=== PATIENT | female | born 1970 | race Two or more races ===

== ENCOUNTER 2024-04-24 11:26 | Inpatient (IN) | payer OTHER, MEDICARE, MEDICAID ==
[~2024-04-24] VITALS: Ht 167.6 cm; Wt 188.0 kg
[2024-04-24 12:24] VITALS: BP_SYST 156; BP_SYST 167; BP_DIAS 109; BP_DIAS 91; PULSE 67; PULSE 84; RESP 22; TEMP 97.6; O2SAT 92; O2SAT 95
[2024-04-24 12:25] LABS: Chloride 103 mmol/L (98-107); Potassium 4.4 mmol/L (3.5-5.1); Sodium 140 mmol/L (136-145)
[2024-04-24 12:26] LABS: Calcium 9.4 mg/dL (8.7-10.4); Carbon Dioxide 38 mmol/L (20-30)
[2024-04-24] MEDS: ALBUTEROL SULF 2.5 MG/0.5ML(0.5%) NEB SOLN NEB ONE (12:30)
[2024-04-24 12:31] LABS: Anion Gap -1 (5-15); Blood Urea Nitrogen 6 mg/dL (9-23); Glucose 140 mg/dL (74-106)
[2024-04-24] MEDS: FUROSEMIDE 40 MG/4 ML VIAL IV ONE (13:30)
[2024-04-24 14:26] LABS: Base Excess 3.8 mmol/L (-2.0-2.0)
[2024-04-24 14:40] VITALS: BP 156/91; PULSE 84; O2SAT 95
[2024-04-24 15:35] LABS: Basophils # (auto) 0 10 ^3/uL (0-0.2); Basophils % (auto) 0.4 % (0.0-2.0); Eosinophils # (auto) 0.1 10 ^3/uL (0-0.8); Hematocrit 42.7 % (36.0-46.0); Hemoglobin 13.5 g/dL (12.2-16.2); Lymphocytes # (auto) 1.1 10 ^3/uL (0.4-5.4); Lymphocytes % (auto) 17.4 % (10.0-50.0); Mean Corpuscular Hemoglobin 29.8 pg (28.0-32.0); Mean Corpuscular Hgb Conc. 31.7 g/dL (32.0-36.0); Mean Corpuscular Volume 94.1 fL (80.0-100.0); Monocytes # (auto) 0.6 10 ^3/uL (0-1.3); Monocytes % (auto) 9.8 % (0.0-12.0); Neutrophils # (auto) 4.7 10 ^3/uL (1.6-8.6); Neutrophils % (auto) 71.4 % (37.0-80.0); Nucleated Red Blood Cells % 0.5 %; Platelet Count (auto) 185 10^3/uL (140-450); Red Blood Cells 4.54 10^6/uL (4.0-5.20); Red Cell Distribution Width 16.2 % (11.8-14.3); White Blood Cell 6.6 10^3/uL (4.4-10.8)
[2024-04-24] MEDS ORDERED: AZITHROMYCIN 250 MG TAB PO ONE (16:00)
[2024-04-24 16:11] LABS: Base Excess 7.4 mmol/L (-2.0-2.0)
[2024-04-24] MEDS: methylPREDNISolone SOD SUCC 125 MG/2 ML VL IV ONE (16:17)
[2024-04-24] MEDS ORDERED: ACETAMINOPHEN 650 MG RECT SUPP PR PRN (16:30)
[2024-04-24] MEDS ORDERED: DOCUSATE SOD 100 MG CAP PO PRN (16:30)
[2024-04-24] MEDS: ETOMIDATE (2MG/ML) 20ML VIAL IV ONE ×2 (16:34→16:37)
[2024-04-24] MEDS: ROCURONIUM 10MG/ML 10ML VIAL IV ONE ×2 (16:34→16:37)
[2024-04-24] MEDS: PROPOFOL 100 ML IV SCH (16:36)
[2024-04-24] MEDS: PROPOFOL 100 ML IV ONE (16:37)
[2024-04-24] MEDS: PROPOFOL 10 MG/ML 20 ML IV ONE (16:37)
[2024-04-24] MEDS: AZITHROMYCIN 500MG/ 250ML 250 ML IV ONE (17:10)
[2024-04-24] MEDS: MIDAZOLAM DRIP 50 mg/50mL 50 ML IV SCH (17:45)
[2024-04-24] MEDS: MIDAZOLAM DRIP 50 mg/50mL 50 ML IV ONE (17:46)
[2024-04-24 18:20] VITALS: BP 138/89; PULSE 77; RESP 20; O2SAT 96
[2024-04-24 18:39] LABS: Base Excess 11.2 mmol/L (-2.0-2.0)
[2024-04-24 19:30] VITALS: RESP 20; O2SAT 100
[2024-04-24 19:42] LABS: COVID19 ANTIGEN SOFIA FIA NEGATIVE (NEGATIVE); Rapid Influenza A Negative (Negative); Rapid Influenza B Negative (Negative)
[2024-04-24 20:30] VITALS: BP 138/89; PULSE 74; RESP 20; O2SAT 96
[2024-04-24] MEDS ORDERED: MORPHINE SULFATE INJ 2 MG/ml SYRG IV PRN (20:45)
[2024-04-24] MEDS ORDERED: NITROGLYCERIN 0.4 MG SL TAB SL PRN (20:45)
[2024-04-24] MEDS: methylPREDNISolone SOD SUCC 40 MG/ML VL IV SCH (22:21)
[2024-04-24] MEDS: FAMOTIDINE (10MG/ML) 2ML VL IV SCH (22:21)
[2024-04-24] MEDS: METOPROLOL TARTRATE 25 MG TAB PO SCH (22:22)
[2024-04-24] MEDS: HEPARIN SODIUM (PORCINE) 5000 UNITS/ML 1ML VIAL SC SCH (22:23)
[2024-04-24] MEDS: SODIUM CHLOR 0.9% PF (SALINE LOCK) 10ML VIAL/SYR IV SCH (22:24)
[2024-04-24 22:50] VITALS: BP 133/92; PULSE 74; RESP 20; O2SAT 94
[2024-04-25] VITALS (39 sets, daily range): BP systolic 86–163; BP diastolic 41–100; PULSE 71–105; RESP 17–20; TEMP 98.3–98.6; O2SAT 88–95
[2024-04-25] MEDS: hydrALAZINE HCL 20 MG/ML VL IV PRN (00:16)
[2024-04-25] MEDS: ALBUTEROL SULF 2.5 MG/0.5ML(0.5%) NEB SOLN NEB PRN (00:18)
[2024-04-25 02:16] LABS: Urine Bacteria None Seen /hpf (None Seen)
[2024-04-25 02:34] LABS: Urine Blood Negative /uL (Negative); Urine Clarity Clear (Clear); Urine Color Light-Yellow (Yellow); Urine Protein, UAD Negative (Negative); Urine Specific Gravity 1.011 (1.001-1.035); Urine Urobilinogen Normal (Negative); Urine WBC 1 /hpf (0 - 5)
[2024-04-25 04:40] LABS: Base Excess 8.3 mmol/L (-2.0-2.0)
[2024-04-25 06:13] LABS: Basophils # (auto) 0 10 ^3/uL (0-0.2); Basophils % (auto) 0.2 % (0.0-2.0); Eosinophils # (auto) 0 10 ^3/uL (0-0.8); Eosinophils % (auto) 0.1 % (0.0-7.0); Hematocrit 42.2 % (36.0-46.0); Hemoglobin 13.8 g/dL (12.2-16.2); Lymphocytes # (auto) 0.6 10 ^3/uL (0.4-5.4); Lymphocytes % (auto) 7.9 % (10.0-50.0); Mean Corpuscular Hemoglobin 30.2 pg (28.0-32.0); Mean Corpuscular Hgb Conc. 32.7 g/dL (32.0-36.0); Mean Corpuscular Volume 92.5 fL (80.0-100.0); Monocytes # (auto) 0.3 10 ^3/uL (0-1.3); Monocytes % (auto) 4.2 % (0.0-12.0); Neutrophils # (auto) 6.2 10 ^3/uL (1.6-8.6); Neutrophils % (auto) 87.6 % (37.0-80.0); Nucleated Red Blood Cells % 0.1 %; Platelet Count (auto) 183 10^3/uL (140-450); Red Blood Cells 4.57 10^6/uL (4.0-5.20); Red Cell Distribution Width 16.3 % (11.8-14.3); White Blood Cell 7.1 10^3/uL (4.4-10.8)
[2024-04-25 06:27] LABS: Alanine Aminotransferase 10 U/L (7-40); Alkaline Phosphatase 81 U/L (46-116); Anion Gap 8 (5-15); Blood Urea Nitrogen 7 mg/dL (9-23); Calcium 9.3 mg/dL (8.7-10.4); Carbon Dioxide 32 mmol/L (20-30); Chloride 101 mmol/L (98-107); Glucose 173 mg/dL (74-106); Potassium 3.5 mmol/L (3.5-5.1); Sodium 141 mmol/L (136-145)
[2024-04-25 06:28] LABS: Albumin 3.8 g/dL (3.2-4.8)
[2024-04-25 06:29] LABS: Aspartate Aminotransferase < 8 U/L (13-40); Bilirubin, Total 0.7 mg/dL (0.2-1.0); Total Protein 6.4 g/dL (5.7-8.2)
[2024-04-25] MEDS: PROPOFOL 100 ML IV ONE (07:50)
[2024-04-25] MEDS: FUROSEMIDE 40 MG/4 ML VIAL IV SCH ×2 (10:21→21:24)
[2024-04-25] MEDS: AZITHROMYCIN 500MG/ 250ML 250 ML IV SCH (10:24)
[2024-04-25] MEDS ORDERED: DOCU-94 PO (10:54)
[2024-04-25] MEDS ORDERED: RIS1T PO (10:54)
[2024-04-25] MEDS ORDERED: TRIA0.1O TOP (10:54)
[2024-04-25] MEDS ORDERED: OMEP20TA PO (10:54)
[2024-04-25] MEDS ORDERED: CLON-853 PO (10:54)
[2024-04-25] MEDS ORDERED: KEP500T PO (10:54)
[2024-04-25] MEDS ORDERED: MOMLQ PO (10:54)
[2024-04-25] MEDS ORDERED: DIVA500T12 PO (10:54)
[2024-04-25] MEDS ORDERED: METF-372 PO (10:54)
[2024-04-25] MEDS ORDERED: LEVO200C3 PO (10:54)
[2024-04-25] MEDS ORDERED: HYOS0.1250 PO (10:54)
[2024-04-25] MEDS ORDERED: BUDE0.5S IN (10:54)
[2024-04-25] MEDS ORDERED: SERT-206 PO (10:54)
[2024-04-25] MEDS ORDERED: MODA100T52 PO (10:54)
[2024-04-25] MEDS ORDERED: ATOR20TA PO (10:54)
[2024-04-25] MEDS ORDERED: DEXTROSE (50%) 50ML SYRG IV PRN (13:45)
[2024-04-25 14:12] LABS: Base Excess 7.2 mmol/L (-2.0-2.0)
[2024-04-25] MEDS: POTASSIUM EFFERVESENT TAB 25 MEQ PO ONE (14:19)
[2024-04-25] MEDS: ACCU-CHEK COMFORT CURVE STRIP VI SCH (17:37)
[2024-04-25] MEDS: InsuLIN REG 1unit/0.01ml Soln (100units/ml) SC SCH (17:38)
[2024-04-25] MEDS: ENOXAPARIN SOD 150 MG/1 ML SYRINGE SC SCH (21:16)
[2024-04-25] MEDS ORDERED: ENOXAPARIN SOD 100 MG/1 ML SYRINGE SC SCH (22:00)
[2024-04-25] MEDS ORDERED: ALBUMIN 5% 250 ML IV SCH (23:30)
[2024-04-26] VITALS (108 sets, daily range): BP systolic 87–134; BP diastolic 40–80; PULSE 68–165; RESP 16–29; TEMP 96.4–98.6; O2SAT 89–97
[2024-04-26] MEDS: AMIODARONE HCL (50 MG/ ML) 3 ML VIAL IV ONE (03:04)
[2024-04-26] MEDS: AMIODARONE 450mg/250ml AE 250 ML IV ONE (03:05)
[2024-04-26] MEDS ORDERED: ALBUMIN 5% 250 ML IV ONE (03:15)
[2024-04-26] MEDS: ALBUMIN 5% 250 ML IV ONE (03:34)
[2024-04-26] MEDS: AMIODARONE 450mg/250ml AE 250 ML IV SCH ×2 (03:40→11:44)
[2024-04-26] MEDS: AMIODARONE BOLUS KIT 100 ML IV ONE (03:42)
[2024-04-26 04:24] LABS: Basophils # (auto) 0 10 ^3/uL (0-0.2); Basophils % (auto) 0.1 % (0.0-2.0); Eosinophils # (auto) 0 10 ^3/uL (0-0.8); Eosinophils % (auto) 0.1 % (0.0-7.0); Hemoglobin 13.1 g/dL (12.2-16.2); Lymphocytes # (auto) 0.5 10 ^3/uL (0.4-5.4); Lymphocytes % (auto) 5.4 % (10.0-50.0); Mean Corpuscular Hemoglobin 29.6 pg (28.0-32.0); Mean Corpuscular Volume 92.6 fL (80.0-100.0); Monocytes # (auto) 0.7 10 ^3/uL (0-1.3); Monocytes % (auto) 7.6 % (0.0-12.0); Neutrophils # (auto) 8.1 10 ^3/uL (1.6-8.6); Neutrophils % (auto) 86.8 % (37.0-80.0); Nucleated Red Blood Cells % 0.1 %; Platelet Count (auto) 194 10^3/uL (140-450); Red Blood Cells 4.43 10^6/uL (4.0-5.20); Red Cell Distribution Width 16.5 % (11.8-14.3); White Blood Cell 9.4 10^3/uL (4.4-10.8)
[2024-04-26 04:30] LABS: Anion Gap 11 (5-15); Carbon Dioxide 28 mmol/L (20-30); Chloride 100 mmol/L (98-107); Potassium 3.5 mmol/L (3.5-5.1); Sodium 139 mmol/L (136-145)
[2024-04-26 04:31] LABS: Calcium 8.9 mg/dL (8.7-10.4)
[2024-04-26 04:35] LABS: Glucose 273 mg/dL (74-106)
[2024-04-26 04:36] LABS: BUN/Creatinine Ratio 10.8 (10.0-20.0); Blood Urea Nitrogen 12 mg/dL (9-23); Magnesium 1.8 mg/dL (1.6-2.6)
[2024-04-26] MEDS: LEVOTHYROXINE SODIUM 100 MCG TAB PO SCH (06:19)
[2024-04-26 07:50] LABS: Base Excess 0.5 mmol/L (-2.0-2.0)
[2024-04-26] MEDS: BUDESONIDE (INHALATION) 0.5 MG/2 ML NEB NEB SCH (08:14)
[2024-04-26] MEDS: IPRATROPIUM BROM 0.5 MG/2.5ML INH SOL NEB SCH (08:14)
[2024-04-26] MEDS: LEVALBUTEROL HCL 1.25 MG/3 ML NEB NEB SCH (08:15)
[2024-04-26] MEDS ORDERED: PATIENTS OWN MEDICATION (Levothyroxine Sodium 200 MCG) PO SCH (10:00)
[2024-04-26] MEDS: PANTOPRAZOLE 40 MG/10 ML VIAL INJ IV SCH (10:15)
[2024-04-26] MEDS: cefTRIAXone 1GM/50ML D5W 50 ML IV SCH (10:15)
[2024-04-26] MEDS: POTASSIUM CHL 20MEQ/100ML 100 ML IV SCH (10:17)
[2024-04-26] MEDS: DOXYCYCLINE 100MG/250ML 250 ML IV SCH (10:17)
[2024-04-26 11:46] LABS: INR 1.1 (0.9-1.15); Partial Thromboplastin Time 27.1 SEC (24.5-34.5); Prothrombin Time 11.6 sec (9.3-11.8)
[2024-04-26 12:03] LABS: Erythrocyte Sedimentation Rate 5 mm/hr (0-20)
[2024-04-26] MEDS: Glucerna 1.2 Cal 1Liter BOTTLE GT SCH (13:36)
[2024-04-27] VITALS (106 sets, daily range): BP systolic 89–190; BP diastolic 49–106; PULSE 65–107; RESP 11–35; TEMP 97.9–98.8; O2SAT 81–100
[2024-04-27 04:26] LABS: Chloride 99 mmol/L (98-107); Potassium 3.6 mmol/L (3.5-5.1); Sodium 140 mmol/L (136-145)
[2024-04-27 04:27] LABS: Anion Gap 5 (5-15); Carbon Dioxide 36 mmol/L (20-30)
[2024-04-27 04:28] LABS: Calcium 8.8 mg/dL (8.7-10.4)
[2024-04-27 04:32] LABS: BUN/Creatinine Ratio 17.9 (10.0-20.0); Blood Urea Nitrogen 14 mg/dL (9-23); Glucose 156 mg/dL (74-106)
[2024-04-27 04:33] LABS: Magnesium 1.9 mg/dL (1.6-2.6)
[2024-04-27 07:32] LABS: Base Excess 7.9 mmol/L (-2.0-2.0)
[2024-04-27] MEDS: AMIODARONE HCL 200 MG TAB PO SCH (10:47)
[2024-04-27] MEDS: FUROSEMIDE INJECTION 100 MG in D5W 5% 100 ML IV SCH (11:01)
[2024-04-27] MEDS: LACTULOSE 20Gm/30ML SOLN GT SCH (11:01)
[2024-04-27] MEDS: POTASSIUM EFFERVESENT TAB 25 MEQ PO SCH (11:03)
[2024-04-27 20:34] LABS: Potassium 3.3 mmol/L (3.5-5.1)
[2024-04-27 20:40] LABS: Magnesium 1.6 mg/dL (1.6-2.6)
[2024-04-28] VITALS (109 sets, daily range): BP systolic 80–128; BP diastolic 34–76; PULSE 67–155; RESP 16–24; TEMP 97.9–99; O2SAT 85–96
[2024-04-28 04:17] LABS: Chloride 96 mmol/L (98-107); Potassium 3.4 mmol/L (3.5-5.1); Sodium 140 mmol/L (136-145)
[2024-04-28 04:18] LABS: Anion Gap 5 (5-15); Carbon Dioxide 39 mmol/L (20-30)
[2024-04-28 04:23] LABS: BUN/Creatinine Ratio 16.9 (10.0-20.0); Blood Urea Nitrogen 13 mg/dL (9-23); Glucose 153 mg/dL (74-106)
[2024-04-28 04:24] LABS: Magnesium 1.7 mg/dL (1.6-2.6)
[2024-04-28 08:14] LABS: Base Excess 11.8 mmol/L (-2.0-2.0)
[2024-04-28 08:17] LABS: Basophils # (auto) 0.1 10 ^3/uL (0-0.2); Basophils % (auto) 0.5 % (0.0-2.0); Eosinophils # (auto) 0.1 10 ^3/uL (0-0.8); Hematocrit 43.5 % (36.0-46.0); Hemoglobin 13.7 g/dL (12.2-16.2); Lymphocytes # (auto) 1.3 10 ^3/uL (0.4-5.4); Lymphocytes % (auto) 12.9 % (10.0-50.0); Mean Corpuscular Hemoglobin 29.3 pg (28.0-32.0); Mean Corpuscular Hgb Conc. 31.5 g/dL (32.0-36.0); Mean Corpuscular Volume 92.8 fL (80.0-100.0); Neutrophils # (auto) 7.9 10 ^3/uL (1.6-8.6); Neutrophils % (auto) 75.6 % (37.0-80.0); Platelet Count (auto) 190 10^3/uL (140-450); Red Blood Cells 4.68 10^6/uL (4.0-5.20); Red Cell Distribution Width 16.6 % (11.8-14.3); White Blood Cell 10.4 10^3/uL (4.4-10.8)
[2024-04-28] MEDS: POTASSIUM EFFERVESENT TAB 25 MEQ PO SCH (09:04)
[2024-04-28] MEDS: MAGNESIUM SULFATE 1GM/100ML 100 ML IV SCH (09:05)
[2024-04-28] MEDS: FUROSEMIDE INJECTION 100 MG in D5W 5% 100 ML IV SCH (09:08)
[2024-04-28] MEDS: ACETYLCYSTEINE 10 %(100MG/ML) SOL 4ML NEB SCH (12:40)
[2024-04-28] MEDS ORDERED: VANCOMYCIN PER PHARMACY 0 MG IV SCH (15:30)
[2024-04-28] MEDS: fentaNYL Drip 2500mCg/250mlNS 250 ML IV SCH (15:51)
[2024-04-28] MEDS: VANCOMYCIN 1GM/200ML 200 ML IV SCH (17:15)
[2024-04-28] MEDS: AMIODARONE BOLUS KIT 100 ML IV ONE (19:27)
[2024-04-28] MEDS: AMIODARONE 450mg/250ml AE 250 ML IV SCH (19:34)
[2024-04-28] MEDS ORDERED: VANCOMYCIN 1,500 MG in D5W 5% 250 ML IV SCH (22:00)
[2024-04-29] VITALS (112 sets, daily range): BP systolic 85–120; BP diastolic 37–76; PULSE 81–121; RESP 15–33; TEMP 93.4–100.2; O2SAT 91–97
[2024-04-29] MEDS: VANCOMYCIN 1.5GM/300ML 300 ML IV SCH (00:04)
[2024-04-29] MEDS: AMIODARONE 450mg/250ml AE 250 ML IV SCH (01:15)
[2024-04-29 03:41] LABS: Basophils # (auto) 0 10 ^3/uL (0-0.2); Basophils % (auto) 0.1 % (0.0-2.0); Eosinophils # (auto) 0.1 10 ^3/uL (0-0.8); Eosinophils % (auto) 0.9 % (0.0-7.0); Hematocrit 42.1 % (36.0-46.0); Hemoglobin 13.5 g/dL (12.2-16.2); Lymphocytes # (auto) 1.7 10 ^3/uL (0.4-5.4); Lymphocytes % (auto) 16.7 % (10.0-50.0); Mean Corpuscular Hemoglobin 29.6 pg (28.0-32.0); Mean Corpuscular Hgb Conc. 32.1 g/dL (32.0-36.0); Mean Corpuscular Volume 92.1 fL (80.0-100.0); Monocytes # (auto) 0.9 10 ^3/uL (0-1.3); Monocytes % (auto) 8.5 % (0.0-12.0); Neutrophils # (auto) 7.5 10 ^3/uL (1.6-8.6); Neutrophils % (auto) 73.8 % (37.0-80.0); Nucleated Red Blood Cells % 0.2 %; Platelet Count (auto) 177 10^3/uL (140-450); Red Blood Cells 4.57 10^6/uL (4.0-5.20); Red Cell Distribution Width 16.4 % (11.8-14.3); White Blood Cell 10.1 10^3/uL (4.4-10.8)
[2024-04-29 03:45] LABS: Anion Gap 5 (5-15); Carbon Dioxide 38 mmol/L (20-30); Chloride 93 mmol/L (98-107); Potassium 3.5 mmol/L (3.5-5.1); Sodium 136 mmol/L (136-145)
[2024-04-29 03:51] LABS: BUN/Creatinine Ratio 19.5 (10.0-20.0); Blood Urea Nitrogen 16 mg/dL (9-23); Glucose 139 mg/dL (74-106)
[2024-04-30] VITALS (113 sets, daily range): BP systolic 86–129; BP diastolic 45–82; PULSE 76–125; RESP 15–23; TEMP 86.9–100.2; O2SAT 85–99
[2024-04-30 04:16] LABS: Basophils # (auto) 0 10 ^3/uL (0-0.2); Basophils % (auto) 0.3 % (0.0-2.0); Eosinophils # (auto) 0.1 10 ^3/uL (0-0.8); Eosinophils % (auto) 1.3 % (0.0-7.0); Hematocrit 41.9 % (36.0-46.0); Hemoglobin 13.2 g/dL (12.2-16.2); Lymphocytes # (auto) 1.2 10 ^3/uL (0.4-5.4); Mean Corpuscular Hemoglobin 29.4 pg (28.0-32.0); Mean Corpuscular Hgb Conc. 31.5 g/dL (32.0-36.0); Mean Corpuscular Volume 93.5 fL (80.0-100.0); Monocytes % (auto) 8.2 % (0.0-12.0); Neutrophils # (auto) 9.4 10 ^3/uL (1.6-8.6); Neutrophils % (auto) 80.2 % (37.0-80.0); Platelet Count (auto) 163 10^3/uL (140-450); Red Blood Cells 4.48 10^6/uL (4.0-5.20); Red Cell Distribution Width 16.7 % (11.8-14.3); White Blood Cell 11.7 10^3/uL (4.4-10.8)
[2024-04-30 04:35] LABS: Alanine Aminotransferase 48 U/L (7-40); Albumin 3.7 g/dL (3.2-4.8); Alkaline Phosphatase 77 U/L (46-116); Anion Gap 4 (5-15); Aspartate Aminotransferase 141 U/L (13-40); Blood Urea Nitrogen 15 mg/dL (9-23); Calcium 9.1 mg/dL (8.7-10.4); Carbon Dioxide 38 mmol/L (20-30); Chloride 94 mmol/L (98-107); Glucose 147 mg/dL (74-106); Magnesium 1.9 mg/dL (1.6-2.6); Potassium 3.8 mmol/L (3.5-5.1); Sodium 136 mmol/L (136-145)
[2024-04-30 04:36] LABS: Bilirubin, Total 0.8 mg/dL (0.2-1.0); Total Protein 6.1 g/dL (5.7-8.2)
[2024-04-30] MEDS: VANCOMYCIN 1.5GM/300ML 300 ML IV SCH (09:33)
[2024-04-30] MEDS: AMIODARONE HCL 200 MG TAB PO ONE (13:36)
[2024-04-30] MEDS: AMIODARONE HCL 200 MG TAB PO SCH (21:50)
[2024-05-01] VITALS (109 sets, daily range): BP systolic 87–138; BP diastolic 34–81; PULSE 81–119; RESP 13–22; TEMP 99–100.4; O2SAT 89–100
[2024-05-01 04:24] LABS: Basophils # (auto) 0 10 ^3/uL (0-0.2); Basophils % (auto) 0.2 % (0.0-2.0); Eosinophils # (auto) 0.1 10 ^3/uL (0-0.8); Hematocrit 40.5 % (36.0-46.0); Lymphocytes # (auto) 0.6 10 ^3/uL (0.4-5.4); Lymphocytes % (auto) 5.3 % (10.0-50.0); Mean Corpuscular Hemoglobin 29.8 pg (28.0-32.0); Mean Corpuscular Hgb Conc. 32.1 g/dL (32.0-36.0); Mean Corpuscular Volume 92.9 fL (80.0-100.0); Monocytes % (auto) 8.6 % (0.0-12.0); Neutrophils % (auto) 84.9 % (37.0-80.0); Platelet Count (auto) 161 10^3/uL (140-450); Red Blood Cells 4.36 10^6/uL (4.0-5.20); Red Cell Distribution Width 16.5 % (11.8-14.3); White Blood Cell 11.8 10^3/uL (4.4-10.8)
[2024-05-01 04:43] LABS: Alanine Aminotransferase 47 U/L (7-40); Alkaline Phosphatase 80 U/L (46-116); Aspartate Aminotransferase 107 U/L (13-40); BUN/Creatinine Ratio 20.6 (10.0-20.0); Blood Urea Nitrogen 14 mg/dL (9-23); Calcium 9.1 mg/dL (8.7-10.4); Chloride 95 mmol/L (98-107); Glucose 127 mg/dL (74-106); Magnesium 1.9 mg/dL (1.6-2.6); Potassium 3.8 mmol/L (3.5-5.1); Sodium 137 mmol/L (136-145)
[2024-05-01 04:44] LABS: Albumin 3.7 g/dL (3.2-4.8); Bilirubin, Total 0.7 mg/dL (0.2-1.0); Total Protein 6.2 g/dL (5.7-8.2)
[2024-05-01 05:22] LABS: Anion Gap 7 (5-15); Carbon Dioxide 35 mmol/L (20-30)
[2024-05-01 07:40] LABS: Base Excess 9.7 mmol/L (-2.0-2.0)
[2024-05-01] MEDS: FUROSEMIDE INJECTION 100 MG in D5W 5% 100 ML IV SCH (09:30)
[2024-05-01] MEDS: NOREPINEPHRINE 8 MG/250ML KIT 250 ML IV SCH (09:30)
[2024-05-01] MEDS: METOPROLOL TARTRATE 25 MG TAB PO SCH (10:00)
[2024-05-01] MEDS: ACETAMINOPHEN 650 mg PER 20.3 mL UD GT PRN (22:30)
[2024-05-02] VITALS (109 sets, daily range): BP systolic 87–138; BP diastolic 41–89; PULSE 80–123; RESP 13–25; TEMP 98.4–101; O2SAT 85–100
[2024-05-02 03:28] LABS: Basophils # (auto) 0 10 ^3/uL (0-0.2); Basophils % (auto) 0.3 % (0.0-2.0); Eosinophils # (auto) 0.2 10 ^3/uL (0-0.8); Eosinophils % (auto) 1.9 % (0.0-7.0); Hematocrit 38.5 % (36.0-46.0); Hemoglobin 12.4 g/dL (12.2-16.2); Lymphocytes % (auto) 10.4 % (10.0-50.0); Mean Corpuscular Hemoglobin 29.8 pg (28.0-32.0); Mean Corpuscular Hgb Conc. 32.2 g/dL (32.0-36.0); Mean Corpuscular Volume 92.5 fL (80.0-100.0); Monocytes # (auto) 1.1 10 ^3/uL (0-1.3); Monocytes % (auto) 11.6 % (0.0-12.0); Neutrophils % (auto) 75.8 % (37.0-80.0); Platelet Count (auto) 154 10^3/uL (140-450); Red Blood Cells 4.16 10^6/uL (4.0-5.20); Red Cell Distribution Width 16.3 % (11.8-14.3); White Blood Cell 9.2 10^3/uL (4.4-10.8)
[2024-05-02 03:43] LABS: Anion Gap 4 (5-15); Carbon Dioxide 38 mmol/L (20-30); Chloride 97 mmol/L (98-107); Potassium 3.4 mmol/L (3.5-5.1); Sodium 139 mmol/L (136-145)
[2024-05-02 03:44] LABS: Calcium 9.4 mg/dL (8.7-10.4)
[2024-05-02 03:48] LABS: Glucose 111 mg/dL (74-106)
[2024-05-02 03:49] LABS: BUN/Creatinine Ratio 22.2 (10.0-20.0); Blood Urea Nitrogen 14 mg/dL (9-23)
[2024-05-02 06:41] LABS: Base Excess 8.6 mmol/L (-2.0-3.0)
[2024-05-02] MEDS: BUMETANIDE 2.5mg/10ml (0.25 mg/ml) INJ IV SCH (20:03)
[2024-05-02] MEDS: GLYCOPYRROLATE 0.2 MG/ML 1ML VIAL IV ONE (20:03)
[2024-05-03] VITALS (102 sets, daily range): BP systolic 96–151; BP diastolic 48–78; PULSE 85–127; RESP 15–30; TEMP 98.5–99.8; O2SAT 72–99
[2024-05-03 03:38] LABS: Basophils # (auto) 0 10 ^3/uL (0-0.2); Basophils % (auto) 0.3 % (0.0-2.0); Eosinophils # (auto) 0.2 10 ^3/uL (0-0.8); Eosinophils % (auto) 1.7 % (0.0-7.0); Hematocrit 39.5 % (36.0-46.0); Hemoglobin 12.8 g/dL (12.2-16.2); Lymphocytes # (auto) 0.9 10 ^3/uL (0.4-5.4); Lymphocytes % (auto) 9.3 % (10.0-50.0); Mean Corpuscular Hemoglobin 30.2 pg (28.0-32.0); Mean Corpuscular Hgb Conc. 32.4 g/dL (32.0-36.0); Mean Corpuscular Volume 93.2 fL (80.0-100.0); Monocytes % (auto) 10.4 % (0.0-12.0); Neutrophils # (auto) 7.4 10 ^3/uL (1.6-8.6); Neutrophils % (auto) 78.3 % (37.0-80.0); Platelet Count (auto) 178 10^3/uL (140-450); Red Blood Cells 4.24 10^6/uL (4.0-5.20); Red Cell Distribution Width 16.1 % (11.8-14.3); White Blood Cell 9.5 10^3/uL (4.4-10.8)
[2024-05-03 03:53] LABS: Chloride 98 mmol/L (98-107); Potassium 3.7 mmol/L (3.5-5.1); Sodium 139 mmol/L (136-145)
[2024-05-03 03:54] LABS: Anion Gap 3 (5-15); Calcium 9.7 mg/dL (8.7-10.4); Carbon Dioxide 38 mmol/L (20-30)
[2024-05-03 03:59] LABS: BUN/Creatinine Ratio 21.5 (10.0-20.0); Blood Urea Nitrogen 14 mg/dL (9-23); Glucose 113 mg/dL (74-106)
[2024-05-03 08:02] LABS: Base Excess 5.6 mmol/L (-2.0-3.0)
[2024-05-03] MEDS: METOPROLOL TARTRATE 25 MG TAB PO SCH (09:19)
[2024-05-03] MEDS: ACETYLCYSTEINE 10 %(100MG/ML) SOL 4ML NEB SCH (10:54)
[2024-05-04] VITALS (108 sets, daily range): BP systolic 84–153; BP diastolic 44–76; PULSE 67–103; RESP 13–22; TEMP 98.1–99.1; O2SAT 86–100
[2024-05-04 03:58] LABS: Basophils # (auto) 0 10 ^3/uL (0-0.2); Basophils % (auto) 0.5 % (0.0-2.0); Eosinophils # (auto) 0.1 10 ^3/uL (0-0.8); Hemoglobin 11.8 g/dL (12.2-16.2); Lymphocytes % (auto) 13.1 % (10.0-50.0); Mean Corpuscular Hemoglobin 30.6 pg (28.0-32.0); Mean Corpuscular Hgb Conc. 32.9 g/dL (32.0-36.0); Mean Corpuscular Volume 92.9 fL (80.0-100.0); Monocytes # (auto) 0.8 10 ^3/uL (0-1.3); Monocytes % (auto) 10.5 % (0.0-12.0); Neutrophils # (auto) 5.4 10 ^3/uL (1.6-8.6); Neutrophils % (auto) 73.9 % (37.0-80.0); Platelet Count (auto) 171 10^3/uL (140-450); Red Blood Cells 3.87 10^6/uL (4.0-5.20); Red Cell Distribution Width 15.8 % (11.8-14.3); White Blood Cell 7.4 10^3/uL (4.4-10.8)
[2024-05-04 04:05] LABS: Anion Gap 6 (5-15); Carbon Dioxide 35 mmol/L (20-30); Chloride 100 mmol/L (98-107); Potassium 3.6 mmol/L (3.5-5.1); Sodium 141 mmol/L (136-145)
[2024-05-04 04:06] LABS: Calcium 9.4 mg/dL (8.7-10.4)
[2024-05-04 04:11] LABS: Glucose 113 mg/dL (74-106)
[2024-05-04 04:12] LABS: BUN/Creatinine Ratio 25.8 (10.0-20.0); Blood Urea Nitrogen 16 mg/dL (9-23)
[2024-05-04 08:15] LABS: Base Excess 6.1 mmol/L (-2.0-3.0)
[2024-05-04] MEDS: methylPREDNISolone SOD SUCC 40 MG/ML VL IV SCH (11:23)
[2024-05-04] MEDS: QUEtiapine FUMARATE 25 MG TAB PO SCH (21:07)
[2024-05-05] VITALS (104 sets, daily range): BP systolic 69–151; BP diastolic 49–87; PULSE 75–116; RESP 13–27; TEMP 97.7–98.8; O2SAT 85–96
[2024-05-05 03:56] LABS: Basophils # (auto) 0 10 ^3/uL (0-0.2); Basophils % (auto) 0.1 % (0.0-2.0); Eosinophils # (auto) 0 10 ^3/uL (0-0.8); Hemoglobin 11.9 g/dL (12.2-16.2); Lymphocytes # (auto) 0.3 10 ^3/uL (0.4-5.4); Lymphocytes % (auto) 5.7 % (10.0-50.0); Mean Corpuscular Hemoglobin 29.9 pg (28.0-32.0); Mean Corpuscular Hgb Conc. 32.2 g/dL (32.0-36.0); Mean Corpuscular Volume 92.8 fL (80.0-100.0); Monocytes # (auto) 0.1 10 ^3/uL (0-1.3); Monocytes % (auto) 1.7 % (0.0-12.0); Neutrophils # (auto) 5.1 10 ^3/uL (1.6-8.6); Neutrophils % (auto) 92.5 % (37.0-80.0); Platelet Count (auto) 186 10^3/uL (140-450); Red Blood Cells 3.98 10^6/uL (4.0-5.20); Red Cell Distribution Width 15.3 % (11.8-14.3); White Blood Cell 5.6 10^3/uL (4.4-10.8)
[2024-05-05 04:16] LABS: Alanine Aminotransferase 36 U/L (7-40); Albumin 3.7 g/dL (3.2-4.8); Alkaline Phosphatase 111 U/L (46-116); Anion Gap 6 (5-15); Aspartate Aminotransferase 24 U/L (13-40); BUN/Creatinine Ratio 31.7 (10.0-20.0); Bilirubin, Total 0.2 mg/dL (0.2-1.0); Blood Urea Nitrogen 19 mg/dL (9-23); Calcium 9.7 mg/dL (8.7-10.4); Carbon Dioxide 33 mmol/L (20-30); Chloride 101 mmol/L (98-107); Glucose 180 mg/dL (74-106); Potassium 4.5 mmol/L (3.5-5.1); Sodium 140 mmol/L (136-145); Total Protein 6.5 g/dL (5.7-8.2)
[2024-05-05 08:26] LABS: Base Excess 6.8 mmol/L (-2.0-3.0)
[2024-05-05] MEDS: BUMETANIDE 2.5mg/10ml (0.25 mg/ml) INJ IV SCH (17:00)
[2024-05-05 19:53] LABS: Base Excess 6.3 mmol/L (-2.0-3.0)
[2024-05-05 21:17] LABS: Base Excess 6.9 mmol/L (-2.0-3.0)
[2024-05-05] MEDS: SODIUM CHLORIDE 0.9% 250 ML IV ONE (21:23)
[2024-05-06] VITALS (106 sets, daily range): BP systolic 98–189; BP diastolic 51–115; PULSE 73–104; RESP 12–77; TEMP 97.7–98.4; O2SAT 89–97
[2024-05-06 04:31] LABS: Alanine Aminotransferase 34 U/L (7-40); Albumin 3.6 g/dL (3.2-4.8); Alkaline Phosphatase 100 U/L (46-116); Anion Gap 5 (5-15); Aspartate Aminotransferase 18 U/L (13-40); BUN/Creatinine Ratio 32.4 (10.0-20.0); Bilirubin, Total 0.2 mg/dL (0.2-1.0); Blood Urea Nitrogen 22 mg/dL (9-23); Calcium 10.4 mg/dL (8.7-10.4); Carbon Dioxide 33 mmol/L (20-30); Chloride 102 mmol/L (98-107); Glucose 226 mg/dL (74-106); Magnesium 2.1 mg/dL (1.6-2.6); Potassium 4.2 mmol/L (3.5-5.1); Sodium 140 mmol/L (136-145); Total Protein 6.5 g/dL (5.7-8.2)
[2024-05-06 05:17] LABS: Basophils # (auto) 0 10 ^3/uL (0-0.2); Basophils % (auto) 0.1 % (0.0-2.0); Eosinophils # (auto) 0 10 ^3/uL (0-0.8); Hematocrit 36.9 % (36.0-46.0); Hemoglobin 12.1 g/dL (12.2-16.2); Lymphocytes # (auto) 0.3 10 ^3/uL (0.4-5.4); Lymphocytes % (auto) 5.8 % (10.0-50.0); Mean Corpuscular Hemoglobin 30.4 pg (28.0-32.0); Mean Corpuscular Hgb Conc. 32.9 g/dL (32.0-36.0); Mean Corpuscular Volume 92.4 fL (80.0-100.0); Monocytes # (auto) 0.2 10 ^3/uL (0-1.3); Monocytes % (auto) 3.8 % (0.0-12.0); Neutrophils # (auto) 4.7 10 ^3/uL (1.6-8.6); Neutrophils % (auto) 90.3 % (37.0-80.0); Nucleated Red Blood Cells % 0.1 %; Platelet Count (auto) 198 10^3/uL (140-450); Red Blood Cells 3.99 10^6/uL (4.0-5.20); Red Cell Distribution Width 15.5 % (11.8-14.3); White Blood Cell 5.3 10^3/uL (4.4-10.8)
[2024-05-06 06:29] LABS: Base Excess 5.8 mmol/L (-2.0-3.0)
[2024-05-06] MEDS: hydrALAZINE HCL 20 MG/ML VL IV ONE (09:09)
[2024-05-06] MEDS: METOPROLOL TARTRATE 25 MG TAB PO SCH (11:37)
[2024-05-06] MEDS: NIFEdipine ER 30 MG TAB PO SCH (12:32)
[2024-05-06] MEDS: cloNIDine HCL 0.1 MG TAB PO SCH (14:11)
[2024-05-07] VITALS (105 sets, daily range): BP systolic 100–166; BP diastolic 57–97; PULSE 61–103; RESP 0–21; TEMP 97.2–97.9; O2SAT 81–99
[2024-05-07 04:01] LABS: Basophils # (auto) 0 10 ^3/uL (0-0.2); Basophils % (auto) 0.1 % (0.0-2.0); Eosinophils # (auto) 0 10 ^3/uL (0-0.8); Hematocrit 40.5 % (36.0-46.0); Hemoglobin 13.3 g/dL (12.2-16.2); Lymphocytes # (auto) 0.3 10 ^3/uL (0.4-5.4); Lymphocytes % (auto) 7.5 % (10.0-50.0); Mean Corpuscular Hemoglobin 30.4 pg (28.0-32.0); Mean Corpuscular Hgb Conc. 32.8 g/dL (32.0-36.0); Mean Corpuscular Volume 92.7 fL (80.0-100.0); Monocytes # (auto) 0.2 10 ^3/uL (0-1.3); Monocytes % (auto) 4.6 % (0.0-12.0); Neutrophils % (auto) 87.8 % (37.0-80.0); Nucleated Red Blood Cells % 0.1 %; Platelet Count (auto) 199 10^3/uL (140-450); Red Blood Cells 4.37 10^6/uL (4.0-5.20); Red Cell Distribution Width 15.2 % (11.8-14.3); White Blood Cell 4.5 10^3/uL (4.4-10.8)
[2024-05-07] MEDS: hydrALAZINE HCL 20 MG/ML VL IV PRN (04:16)
[2024-05-07 04:32] LABS: Alanine Aminotransferase 38 U/L (7-40); Albumin 3.7 g/dL (3.2-4.8); Alkaline Phosphatase 89 U/L (46-116); Anion Gap 6 (5-15); Aspartate Aminotransferase 17 U/L (13-40); BUN/Creatinine Ratio 37.5 (10.0-20.0); Blood Urea Nitrogen 27 mg/dL (9-23); Calcium 10.2 mg/dL (8.7-10.4); Carbon Dioxide 33 mmol/L (20-30); Chloride 102 mmol/L (98-107); Glucose 250 mg/dL (74-106); Magnesium 2.1 mg/dL (1.6-2.6); Potassium 4.2 mmol/L (3.5-5.1); Sodium 141 mmol/L (136-145)
[2024-05-07 04:33] LABS: Bilirubin, Total 0.2 mg/dL (0.2-1.0); Phosphorus 4.1 mg/dL (2.4-5.1); Total Protein 6.6 g/dL (5.7-8.2)
[2024-05-07 07:06] LABS: Base Excess 9.5 mmol/L (-2.0-3.0)
[2024-05-07] MEDS: Glucerna 1.2 Cal 1Liter BOTTLE GT SCH (18:04)
[2024-05-07] MEDS ORDERED: VANCOMYCIN 1,500 MG in D5W 5% 250 ML IV SCH (19:00)
[2024-05-07] MEDS: VANCOMYCIN 1.5GM/300ML 300 ML IV SCH (19:17)
[2024-05-08] VITALS (105 sets, daily range): BP systolic 94–172; BP diastolic 52–95; PULSE 64–100; RESP 0–21; TEMP 97.7–98.2; O2SAT 80–99
[2024-05-08 04:14] LABS: Alanine Aminotransferase 39 U/L (7-40); Alkaline Phosphatase 84 U/L (46-116); Anion Gap 5 (5-15); Aspartate Aminotransferase 16 U/L (13-40); BUN/Creatinine Ratio 38.7 (10.0-20.0); Blood Urea Nitrogen 29 mg/dL (9-23); Carbon Dioxide 33 mmol/L (20-30); Chloride 102 mmol/L (98-107); Glucose 263 mg/dL (74-106); Potassium 4.3 mmol/L (3.5-5.1); Sodium 140 mmol/L (136-145)
[2024-05-08 04:15] LABS: Basophils # (auto) 0 10 ^3/uL (0-0.2); Basophils % (auto) 0.1 % (0.0-2.0); Eosinophils # (auto) 0 10 ^3/uL (0-0.8); Hematocrit 42.1 % (36.0-46.0); Hemoglobin 13.7 g/dL (12.2-16.2); Lymphocytes # (auto) 0.3 10 ^3/uL (0.4-5.4); Magnesium 2.1 mg/dL (1.6-2.6); Mean Corpuscular Hemoglobin 30.2 pg (28.0-32.0); Mean Corpuscular Hgb Conc. 32.5 g/dL (32.0-36.0); Mean Corpuscular Volume 93.1 fL (80.0-100.0); Monocytes # (auto) 0.3 10 ^3/uL (0-1.3); Monocytes % (auto) 4.9 % (0.0-12.0); Neutrophils # (auto) 6.1 10 ^3/uL (1.6-8.6); Platelet Count (auto) 208 10^3/uL (140-450); Red Blood Cells 4.53 10^6/uL (4.0-5.20); Red Cell Distribution Width 15.6 % (11.8-14.3); White Blood Cell 6.8 10^3/uL (4.4-10.8)
[2024-05-08 04:16] LABS: Albumin 3.8 g/dL (3.2-4.8); Phosphorus 5.2 mg/dL (2.4-5.1)
[2024-05-08 04:17] LABS: Bilirubin, Total 0.3 mg/dL (0.2-1.0); Total Protein 6.7 g/dL (5.7-8.2)
[2024-05-08 07:51] LABS: Base Excess 7.6 mmol/L (-2.0-3.0)
[2024-05-08] MEDS: dilTIAZem 25 MG/5 ML VIAL IV ONE (10:55)
[2024-05-08] MEDS: METOPROLOL TARTRATE 25 MG TAB PO SCH (21:33)
[2024-05-09] VITALS (108 sets, daily range): BP systolic 66–174; BP diastolic 48–107; PULSE 62–117; RESP 20–32; TEMP 97.8–98.8; O2SAT 82–99
[2024-05-09 04:38] LABS: Basophils # (auto) 0 10 ^3/uL (0-0.2); Basophils % (auto) 0.1 % (0.0-2.0); Eosinophils # (auto) 0 10 ^3/uL (0-0.8); Hematocrit 40.8 % (36.0-46.0); Hemoglobin 13.5 g/dL (12.2-16.2); Lymphocytes # (auto) 0.3 10 ^3/uL (0.4-5.4); Lymphocytes % (auto) 5.9 % (10.0-50.0); Mean Corpuscular Hemoglobin 30.5 pg (28.0-32.0); Mean Corpuscular Hgb Conc. 33.1 g/dL (32.0-36.0); Mean Corpuscular Volume 92.4 fL (80.0-100.0); Monocytes # (auto) 0.2 10 ^3/uL (0-1.3); Monocytes % (auto) 3.8 % (0.0-12.0); Neutrophils # (auto) 3.8 10 ^3/uL (1.6-8.6); Neutrophils % (auto) 90.2 % (37.0-80.0); Platelet Count (auto) 173 10^3/uL (140-450); Red Blood Cells 4.42 10^6/uL (4.0-5.20); Red Cell Distribution Width 15.2 % (11.8-14.3); White Blood Cell 4.2 10^3/uL (4.4-10.8)
[2024-05-09 04:46] LABS: Anion Gap 6 (5-15); Carbon Dioxide 31 mmol/L (20-30); Chloride 102 mmol/L (98-107); Potassium 4.2 mmol/L (3.5-5.1); Sodium 139 mmol/L (136-145)
[2024-05-09 04:47] LABS: Calcium 9.9 mg/dL (8.7-10.4)
[2024-05-09 04:51] LABS: Glucose 271 mg/dL (74-106)
[2024-05-09 04:52] LABS: BUN/Creatinine Ratio 35.5 (10.0-20.0); Blood Urea Nitrogen 27 mg/dL (9-23); Magnesium 2.1 mg/dL (1.6-2.6)
[2024-05-09 07:30] LABS: Base Excess 6.2 mmol/L (-2.0-3.0)
[2024-05-09] MEDS: LACTULOSE 20Gm/30ML SOLN GT SCH (10:14)
[2024-05-09] MEDS: METOCLOPRAMIDE HCL 5MG/ml INJ 2ml VIAL IV SCH (14:56)
[2024-05-09] MEDS: INSULIN LANTUS (GLARGINE) 1 /0.01ml (100units/ml) SC SCH (21:28)
[2024-05-10] VITALS (108 sets, daily range): BP systolic 76–170; BP diastolic 43–146; PULSE 68–128; RESP 19–25; TEMP 97.7–98.2; O2SAT 84–97
[2024-05-10 04:16] LABS: Basophils # (auto) 0 10 ^3/uL (0-0.2); Basophils % (auto) 0.1 % (0.0-2.0); Eosinophils # (auto) 0 10 ^3/uL (0-0.8); Eosinophils % (auto) 0.2 % (0.0-7.0); Hematocrit 41.4 % (36.0-46.0); Hemoglobin 13.7 g/dL (12.2-16.2); Lymphocytes # (auto) 0.4 10 ^3/uL (0.4-5.4); Lymphocytes % (auto) 5.4 % (10.0-50.0); Mean Corpuscular Hemoglobin 30.5 pg (28.0-32.0); Mean Corpuscular Hgb Conc. 33.1 g/dL (32.0-36.0); Mean Corpuscular Volume 92.2 fL (80.0-100.0); Monocytes # (auto) 0.2 10 ^3/uL (0-1.3); Monocytes % (auto) 3.2 % (0.0-12.0); Neutrophils # (auto) 6.1 10 ^3/uL (1.6-8.6); Neutrophils % (auto) 91.1 % (37.0-80.0); Platelet Count (auto) 203 10^3/uL (140-450); Red Blood Cells 4.49 10^6/uL (4.0-5.20); Red Cell Distribution Width 15.3 % (11.8-14.3); White Blood Cell 6.7 10^3/uL (4.4-10.8)
[2024-05-10 04:32] LABS: Calcium 9.9 mg/dL (8.7-10.4); Chloride 103 mmol/L (98-107); Potassium 4.1 mmol/L (3.5-5.1); Sodium 138 mmol/L (136-145)
[2024-05-10 04:33] LABS: Anion Gap 9 (5-15); Carbon Dioxide 26 mmol/L (20-30)
[2024-05-10 04:38] LABS: BUN/Creatinine Ratio 33.3 (10.0-20.0); Blood Urea Nitrogen 23 mg/dL (9-23); Glucose 248 mg/dL (74-106)
[2024-05-10 07:52] LABS: Base Excess 3.4 mmol/L (-2.0-3.0)
[2024-05-10] MEDS: LACTULOSE 20Gm/30ML SOLN PO SCH (10:00)
[2024-05-10] MEDS ORDERED: DEXTROSE (50%) 50ML SYRG IV PRN (13:15)
[2024-05-10] MEDS: InsuLIN REG 1unit/0.01ml Soln (100units/ml) SC SCH (13:54)
[2024-05-10] MEDS: ACCU-CHEK COMFORT CURVE STRIP VI SCH (17:53)
[2024-05-10] MEDS: INSULIN LANTUS (GLARGINE) 1 /0.01ml (100units/ml) SC SCH (21:29)
[2024-05-11] VITALS (109 sets, daily range): BP systolic 83–213; BP diastolic 46–107; PULSE 56–122; RESP 14–25; TEMP 95.9–97.8; O2SAT 88–100
[2024-05-11 04:58] LABS: Basophils # (auto) 0 10 ^3/uL (0-0.2); Basophils % (auto) 0.1 % (0.0-2.0); Eosinophils # (auto) 0 10 ^3/uL (0-0.8); Eosinophils % (auto) 0.3 % (0.0-7.0); Hematocrit 41.7 % (36.0-46.0); Hemoglobin 13.6 g/dL (12.2-16.2); Lymphocytes # (auto) 0.4 10 ^3/uL (0.4-5.4); Mean Corpuscular Hemoglobin 29.7 pg (28.0-32.0); Mean Corpuscular Hgb Conc. 32.7 g/dL (32.0-36.0); Mean Corpuscular Volume 90.8 fL (80.0-100.0); Monocytes # (auto) 0.2 10 ^3/uL (0-1.3); Monocytes % (auto) 4.2 % (0.0-12.0); Neutrophils % (auto) 87.4 % (37.0-80.0); Nucleated Red Blood Cells % 0.1 %; Platelet Count (auto) 209 10^3/uL (140-450); Red Blood Cells 4.59 10^6/uL (4.0-5.20); Red Cell Distribution Width 15.6 % (11.8-14.3); White Blood Cell 4.6 10^3/uL (4.4-10.8)
[2024-05-11 05:07] LABS: Chloride 102 mmol/L (98-107); Potassium 4.1 mmol/L (3.5-5.1); Sodium 137 mmol/L (136-145)
[2024-05-11 05:08] LABS: Anion Gap 5 (5-15); Calcium 9.7 mg/dL (8.7-10.4); Carbon Dioxide 30 mmol/L (20-30)
[2024-05-11 05:13] LABS: BUN/Creatinine Ratio 33.3 (10.0-20.0); Blood Urea Nitrogen 23 mg/dL (9-23); Glucose 270 mg/dL (74-106)
[2024-05-11 07:40] LABS: Base Excess 7.2 mmol/L (-2.0-3.0)
[2024-05-11] MEDS: POTASSIUM EFFERVESENT TAB 25 MEQ PO SCH (10:53)
[2024-05-11 15:13] LABS: Base Excess 2.6 mmol/L (-2.0-3.0)
[2024-05-11] MEDS: ACETYLCYSTEINE 10 %(100MG/ML) SOL 4ML IN SCH (18:29)
[2024-05-11] MEDS: INSULIN LANTUS (GLARGINE) 1 /0.01ml (100units/ml) SC SCH (21:45)
[2024-05-12] VITALS (106 sets, daily range): BP systolic 72–177; BP diastolic 35–118; PULSE 66–110; RESP 16–27; TEMP 97.3–98.9; O2SAT 86–100
[2024-05-12 04:05] LABS: Basophils # (auto) 0 10 ^3/uL (0-0.2); Basophils % (auto) 0.1 % (0.0-2.0); Eosinophils # (auto) 0 10 ^3/uL (0-0.8); Eosinophils % (auto) 0.3 % (0.0-7.0); Hematocrit 41.7 % (36.0-46.0); Hemoglobin 13.8 g/dL (12.2-16.2); Lymphocytes # (auto) 0.5 10 ^3/uL (0.4-5.4); Lymphocytes % (auto) 6.8 % (10.0-50.0); Mean Corpuscular Hemoglobin 30.5 pg (28.0-32.0); Mean Corpuscular Hgb Conc. 33.1 g/dL (32.0-36.0); Mean Corpuscular Volume 92.1 fL (80.0-100.0); Monocytes # (auto) 0.3 10 ^3/uL (0-1.3); Monocytes % (auto) 4.4 % (0.0-12.0); Neutrophils # (auto) 5.9 10 ^3/uL (1.6-8.6); Neutrophils % (auto) 88.4 % (37.0-80.0); Nucleated Red Blood Cells % 0.1 %; Platelet Count (auto) 212 10^3/uL (140-450); Red Blood Cells 4.53 10^6/uL (4.0-5.20); Red Cell Distribution Width 15.5 % (11.8-14.3); White Blood Cell 6.6 10^3/uL (4.4-10.8)
[2024-05-12 04:27] LABS: Chloride 103 mmol/L (98-107); Sodium 138 mmol/L (136-145)
[2024-05-12 04:28] LABS: Anion Gap 7 (5-15); Calcium 9.7 mg/dL (8.7-10.4); Carbon Dioxide 28 mmol/L (20-30)
[2024-05-12 04:33] LABS: BUN/Creatinine Ratio 35.3 (10.0-20.0); Blood Urea Nitrogen 24 mg/dL (9-23); Glucose 215 mg/dL (74-106)
[2024-05-12 07:46] LABS: Base Excess 2.1 mmol/L (-2.0-3.0)
[2024-05-12 11:57] LABS: Base Excess 2.7 mmol/L (-2.0-3.0)
[2024-05-12] MEDS: VANCOMYCIN 1.5GM/300ML 300 ML IV SCH (23:39)
[2024-05-13] VITALS (106 sets, daily range): BP systolic 74–134; BP diastolic 39–95; PULSE 75–151; RESP 0–27; TEMP 98.1–99.1; O2SAT 84–100
[2024-05-13 04:13] LABS: Basophils # (auto) 0 10 ^3/uL (0-0.2); Basophils % (auto) 0.3 % (0.0-2.0); Eosinophils # (auto) 0.1 10 ^3/uL (0-0.8); Eosinophils % (auto) 1.9 % (0.0-7.0); Hemoglobin 13.7 g/dL (12.2-16.2); Lymphocytes # (auto) 1.1 10 ^3/uL (0.4-5.4); Lymphocytes % (auto) 14.6 % (10.0-50.0); Mean Corpuscular Hemoglobin 31.2 pg (28.0-32.0); Mean Corpuscular Hgb Conc. 33.3 g/dL (32.0-36.0); Mean Corpuscular Volume 93.5 fL (80.0-100.0); Monocytes # (auto) 0.6 10 ^3/uL (0-1.3); Monocytes % (auto) 7.8 % (0.0-12.0); Neutrophils # (auto) 5.5 10 ^3/uL (1.6-8.6); Neutrophils % (auto) 75.4 % (37.0-80.0); Nucleated Red Blood Cells % 0.1 %; Platelet Count (auto) 206 10^3/uL (140-450); Red Blood Cells 4.38 10^6/uL (4.0-5.20); Red Cell Distribution Width 15.6 % (11.8-14.3); White Blood Cell 7.3 10^3/uL (4.4-10.8)
[2024-05-13 04:30] LABS: Anion Gap 6 (5-15); Carbon Dioxide 30 mmol/L (20-30); Chloride 105 mmol/L (98-107); Potassium 3.5 mmol/L (3.5-5.1); Sodium 141 mmol/L (136-145)
[2024-05-13 04:31] LABS: Calcium 9.5 mg/dL (8.7-10.4)
[2024-05-13 04:36] LABS: BUN/Creatinine Ratio 46.2 (10.0-20.0); Glucose 142 mg/dL (74-106)
[2024-05-13 04:41] LABS: Blood Urea Nitrogen 36 mg/dL (9-23)
[2024-05-13 07:19] LABS: Base Excess 1.9 mmol/L (-2.0-3.0)
[2024-05-13] MEDS: METOPROLOL TARTRATE 1MG/1ML-5ML VIAL IV ONE ×2 (13:40→13:41)
[2024-05-13] MEDS: METOCLOPRAMIDE HCL 5MG/ml INJ 2ml VIAL IV ONE (13:42)
[2024-05-13] MEDS: dilTIAZem 125mg/125ml BAG KIT 100 ML IV SCH (14:29)
[2024-05-13] MEDS: METOCLOPRAMIDE HCL 5MG/ml INJ 2ml VIAL IV SCH (22:18)
[2024-05-13] MEDS: INSULIN LANTUS (GLARGINE) 1 /0.01ml (100units/ml) SC SCH (22:31)
[2024-05-14] VITALS (106 sets, daily range): BP systolic 90–151; BP diastolic 47–84; PULSE 76–97; RESP 0–25; TEMP 98.4–99.3; O2SAT 84–100
[2024-05-14 04:15] LABS: Chloride 109 mmol/L (98-107); Hematocrit 40.9 % (36.0-46.0); Hemoglobin 13.3 g/dL (12.2-16.2); Mean Corpuscular Hemoglobin 30.2 pg (28.0-32.0); Mean Corpuscular Hgb Conc. 32.5 g/dL (32.0-36.0); Platelet Count (auto) 186 10^3/uL (140-450); Potassium 4.6 mmol/L (3.5-5.1); Red Cell Distribution Width 15.7 % (11.8-14.3); Sodium 139 mmol/L (136-145); White Blood Cell 16.1 10^3/uL (4.4-10.8)
[2024-05-14 04:16] LABS: Anion Gap 4 (5-15); Calcium 9.6 mg/dL (8.7-10.4); Carbon Dioxide 26 mmol/L (20-30)
[2024-05-14 04:21] LABS: BUN/Creatinine Ratio 39.4 (10.0-20.0); Blood Urea Nitrogen 28 mg/dL (9-23); Glucose 220 mg/dL (74-106)
[2024-05-14 04:48] LABS: Band Neutrophils % (manual) 0; Basophils % (manual) 0 (0.0-2.0); Blast Cells 0; Eosinophils % (manual) 0 (0-7); Metamyelocytes % 0; Myelocytes % 0; Promyelocytes % 0; Reactive Lymphocytes 0
[2024-05-14 05:26] LABS: Lymphocytes % (manual) 7 (10.0-50.0); Monocytes % (manual) 5 (0-12); Platelet Estimate Adequate; Smudge Cells 1 /100 WBC
[2024-05-14 12:06] LABS: INR 1.14 (0.9-1.15); Partial Thromboplastin Time 39.5 SEC (24.5-34.5)
[2024-05-14] MEDS: LIDOCAINE 1% (LOCAL ANESTH.) PF 5ml SDV ID ONE (13:20)
[2024-05-14] MEDS: SODIUM CHLOR 0.9% PF (SALINE LOCK) 10ML VIAL/SYR IV SCH (21:53)
[2024-05-15] VITALS (108 sets, daily range): BP systolic 94–184; BP diastolic 45–99; PULSE 74–107; RESP 10–26; TEMP 97–98; O2SAT 93–100
[2024-05-15 04:17] LABS: Anion Gap 5 (5-15); Carbon Dioxide 28 mmol/L (20-30); Chloride 108 mmol/L (98-107); Sodium 141 mmol/L (136-145)
[2024-05-15 04:18] LABS: Calcium 10.1 mg/dL (8.7-10.4)
[2024-05-15 04:23] LABS: BUN/Creatinine Ratio 39.3 (10.0-20.0); Blood Urea Nitrogen 22 mg/dL (9-23); Glucose 178 mg/dL (74-106)
[2024-05-15 07:59] LABS: Base Excess 0.5 mmol/L (-2.0-3.0)
[2024-05-15] MEDS: METOPROLOL TARTRATE 25 MG TAB PO SCH (11:29)
[2024-05-15] MEDS: METOCLOPRAMIDE 10 mg/10ml ORAL soln GT SCH (13:54)
[2024-05-16] VITALS (105 sets, daily range): BP systolic 88–185; BP diastolic 47–163; PULSE 62–94; RESP 11–24; TEMP 97.7–98.7; O2SAT 89–100
[2024-05-16] MEDS: cloNIDine HCL 0.1 MG TAB PO PRN (01:39)
[2024-05-16 03:49] LABS: Basophils # (auto) 0 10 ^3/uL (0-0.2); Eosinophils # (auto) 0 10 ^3/uL (0-0.8); Hematocrit 38.1 % (36.0-46.0); Hemoglobin 12.5 g/dL (12.2-16.2); Lymphocytes # (auto) 0.5 10 ^3/uL (0.4-5.4); Lymphocytes % (auto) 7.6 % (10.0-50.0); Mean Corpuscular Hemoglobin 30.4 pg (28.0-32.0); Mean Corpuscular Hgb Conc. 32.8 g/dL (32.0-36.0); Mean Corpuscular Volume 92.4 fL (80.0-100.0); Monocytes # (auto) 0.2 10 ^3/uL (0-1.3); Monocytes % (auto) 2.8 % (0.0-12.0); Neutrophils # (auto) 6.1 10 ^3/uL (1.6-8.6); Neutrophils % (auto) 89.6 % (37.0-80.0); Platelet Count (auto) 187 10^3/uL (140-450); Red Blood Cells 4.12 10^6/uL (4.0-5.20); Red Cell Distribution Width 15.5 % (11.8-14.3); White Blood Cell 6.9 10^3/uL (4.4-10.8)
[2024-05-16 06:29] LABS: Base Excess 1.5 mmol/L (-2.0-3.0)
[2024-05-16 12:55] LABS: Anion Gap 6 (5-15); Calcium 9.9 mg/dL (8.7-10.4); Carbon Dioxide 26 mmol/L (20-30); Chloride 106 mmol/L (98-107); Potassium 4.5 mmol/L (3.5-5.1); Sodium 138 mmol/L (136-145)
[2024-05-16 13:01] LABS: BUN/Creatinine Ratio 41.2 (10.0-20.0); Blood Urea Nitrogen 21 mg/dL (9-23); Glucose 257 mg/dL (74-106)
[2024-05-16] MEDS: INSULIN LANTUS (GLARGINE) 1 /0.01ml (100units/ml) SC SCH (21:37)
[2024-05-17] VITALS (102 sets, daily range): BP systolic 99–200; BP diastolic 42–180; PULSE 65–134; RESP 10–26; TEMP 97.9–99.3; O2SAT 81–100
[2024-05-17 03:55] LABS: Basophils # (auto) 0 10 ^3/uL (0-0.2); Basophils % (auto) 0.1 % (0.0-2.0); Eosinophils # (auto) 0 10 ^3/uL (0-0.8); Hematocrit 39.5 % (36.0-46.0); Hemoglobin 12.9 g/dL (12.2-16.2); Lymphocytes # (auto) 0.7 10 ^3/uL (0.4-5.4); Lymphocytes % (auto) 10.4 % (10.0-50.0); Mean Corpuscular Hemoglobin 30.2 pg (28.0-32.0); Mean Corpuscular Hgb Conc. 32.7 g/dL (32.0-36.0); Mean Corpuscular Volume 92.3 fL (80.0-100.0); Monocytes # (auto) 0.2 10 ^3/uL (0-1.3); Monocytes % (auto) 3.4 % (0.0-12.0); Neutrophils # (auto) 5.5 10 ^3/uL (1.6-8.6); Neutrophils % (auto) 86.1 % (37.0-80.0); Platelet Count (auto) 212 10^3/uL (140-450); Red Blood Cells 4.27 10^6/uL (4.0-5.20); Red Cell Distribution Width 15.4 % (11.8-14.3); White Blood Cell 6.4 10^3/uL (4.4-10.8)
[2024-05-17 04:01] LABS: Chloride 104 mmol/L (98-107); Potassium 4.2 mmol/L (3.5-5.1); Sodium 137 mmol/L (136-145)
[2024-05-17 04:03] LABS: Anion Gap 5 (5-15); Carbon Dioxide 28 mmol/L (20-30)
[2024-05-17 04:08] LABS: BUN/Creatinine Ratio 36.2 (10.0-20.0); Blood Urea Nitrogen 17 mg/dL (9-23); Glucose 225 mg/dL (74-106)
[2024-05-17 07:09] LABS: Base Excess 2.5 mmol/L (-2.0-3.0)
[2024-05-17 12:20] LABS: Base Excess 4.3 mmol/L (-2.0-3.0)
[2024-05-18] VITALS (108 sets, daily range): BP systolic 93–244; BP diastolic 56–226; PULSE 60–139; RESP 9–29; TEMP 97.7–99.1; O2SAT 84–100
[2024-05-18 04:41] LABS: Basophils # (auto) 0 10 ^3/uL (0-0.2); Basophils % (auto) 0.2 % (0.0-2.0); Eosinophils # (auto) 0 10 ^3/uL (0-0.8); Eosinophils % (auto) 0.1 % (0.0-7.0); Hematocrit 40.4 % (36.0-46.0); Hemoglobin 13.6 g/dL (12.2-16.2); Lymphocytes # (auto) 0.8 10 ^3/uL (0.4-5.4); Lymphocytes % (auto) 10.7 % (10.0-50.0); Mean Corpuscular Hemoglobin 30.6 pg (28.0-32.0); Mean Corpuscular Hgb Conc. 33.6 g/dL (32.0-36.0); Mean Corpuscular Volume 91.2 fL (80.0-100.0); Monocytes # (auto) 0.3 10 ^3/uL (0-1.3); Monocytes % (auto) 4.2 % (0.0-12.0); Neutrophils # (auto) 6.2 10 ^3/uL (1.6-8.6); Neutrophils % (auto) 84.8 % (37.0-80.0); Platelet Count (auto) 214 10^3/uL (140-450); Red Blood Cells 4.43 10^6/uL (4.0-5.20); Red Cell Distribution Width 15.4 % (11.8-14.3); White Blood Cell 7.3 10^3/uL (4.4-10.8)
[2024-05-18 04:51] LABS: Anion Gap 5 (5-15); Carbon Dioxide 29 mmol/L (20-30); Chloride 105 mmol/L (98-107); Potassium 3.8 mmol/L (3.5-5.1); Sodium 139 mmol/L (136-145)
[2024-05-18 04:52] LABS: Calcium 10.1 mg/dL (8.7-10.4)
[2024-05-18 04:57] LABS: BUN/Creatinine Ratio 35.6 (10.0-20.0); Blood Urea Nitrogen 16 mg/dL (9-23); Glucose 144 mg/dL (74-106)
[2024-05-18 08:01] LABS: Base Excess 3.6 mmol/L (-2.0-3.0)
[2024-05-18 09:33] LABS: Base Excess 2.8 mmol/L (-2.0-3.0)
[2024-05-18 13:55] LABS: Base Excess 2.3 mmol/L (-2.0-3.0)
[2024-05-18] MEDS ORDERED: hydrALAZINE HCL 20 MG/ML VL IV PRN (15:15)
[2024-05-18] MEDS: BUMETANIDE 2.5mg/10ml (0.25 mg/ml) INJ IV SCH (18:28)
[2024-05-19] VITALS (104 sets, daily range): BP systolic 101–150; BP diastolic 56–89; PULSE 98–152; RESP 9–33; TEMP 97.7–99.9; O2SAT 90–100
[2024-05-19 04:35] LABS: Anion Gap 9 (5-15); Carbon Dioxide 27 mmol/L (20-30); Chloride 102 mmol/L (98-107); Potassium 3.7 mmol/L (3.5-5.1); Sodium 138 mmol/L (136-145)
[2024-05-19 04:36] LABS: Calcium 10.1 mg/dL (8.7-10.4)
[2024-05-19 04:37] LABS: Basophils # (auto) 0.1 10 ^3/uL (0-0.2); Basophils % (auto) 0.4 % (0.0-2.0); Eosinophils # (auto) 0 10 ^3/uL (0-0.8); Hematocrit 42.2 % (36.0-46.0); Hemoglobin 14.1 g/dL (12.2-16.2); Lymphocytes # (auto) 1.1 10 ^3/uL (0.4-5.4); Lymphocytes % (auto) 9.3 % (10.0-50.0); Mean Corpuscular Hemoglobin 30.3 pg (28.0-32.0); Mean Corpuscular Hgb Conc. 33.4 g/dL (32.0-36.0); Mean Corpuscular Volume 90.8 fL (80.0-100.0); Monocytes # (auto) 0.7 10 ^3/uL (0-1.3); Monocytes % (auto) 5.5 % (0.0-12.0); Neutrophils # (auto) 10.1 10 ^3/uL (1.6-8.6); Neutrophils % (auto) 84.8 % (37.0-80.0); Platelet Count (auto) 246 10^3/uL (140-450); Red Blood Cells 4.64 10^6/uL (4.0-5.20); Red Cell Distribution Width 15.5 % (11.8-14.3); White Blood Cell 11.9 10^3/uL (4.4-10.8)
[2024-05-19 04:41] LABS: BUN/Creatinine Ratio 30.4 (10.0-20.0); Blood Urea Nitrogen 17 mg/dL (9-23); Glucose 129 mg/dL (74-106)
[2024-05-19] MEDS: dilTIAZem 25 MG/5 ML VIAL IV ONE ×2 (06:53→08:00)
[2024-05-19] MEDS: dilTIAZem 125mg/125ml BAG KIT 125 ML IV SCH (08:56)
[2024-05-19] MEDS: LACTULOSE 20Gm/30ML SOLN PO SCH (10:00)
[2024-05-19] MEDS: methylPREDNISolone SOD SUCC 40 MG/ML VL IV SCH (10:09)
[2024-05-19] MEDS: LEVOTHYROXINE SODIUM 100 MCG/5 ML INJ IV SCH (10:09)
[2024-05-19] MEDS: LORazepam 2MG/ML-1ML VIAL IV PRN (21:44)
[2024-05-19] MEDS: INSULIN LANTUS (GLARGINE) 1 /0.01ml (100units/ml) SC SCH (21:52)
[2024-05-20] VITALS (102 sets, daily range): BP systolic 95–143; BP diastolic 54–83; PULSE 77–118; RESP 10–34; TEMP 98.2–99; O2SAT 87–100
[2024-05-20] MEDS: ONDANSETRON HCL 4 MG/2 ML VIAL IV PRN (03:04)
[2024-05-20 04:10] LABS: Basophils # (auto) 0 10 ^3/uL (0-0.2); Basophils % (auto) 0.3 % (0.0-2.0); Eosinophils # (auto) 0.1 10 ^3/uL (0-0.8); Eosinophils % (auto) 0.6 % (0.0-7.0); Hematocrit 41.6 % (36.0-46.0); Hemoglobin 13.9 g/dL (12.2-16.2); Lymphocytes % (auto) 19.8 % (10.0-50.0); Mean Corpuscular Hemoglobin 30.6 pg (28.0-32.0); Mean Corpuscular Hgb Conc. 33.3 g/dL (32.0-36.0); Mean Corpuscular Volume 91.8 fL (80.0-100.0); Monocytes % (auto) 10.2 % (0.0-12.0); Neutrophils # (auto) 7.1 10 ^3/uL (1.6-8.6); Neutrophils % (auto) 69.1 % (37.0-80.0); Platelet Count (auto) 239 10^3/uL (140-450); Red Blood Cells 4.54 10^6/uL (4.0-5.20); Red Cell Distribution Width 15.5 % (11.8-14.3); White Blood Cell 10.2 10^3/uL (4.4-10.8)
[2024-05-20 04:13] LABS: Anion Gap 15 (5-15); Calcium 9.9 mg/dL (8.7-10.4); Carbon Dioxide 25 mmol/L (20-30); Chloride 102 mmol/L (98-107); Potassium 2.9 mmol/L (3.5-5.1); Sodium 142 mmol/L (136-145)
[2024-05-20 04:19] LABS: Blood Urea Nitrogen 21 mg/dL (9-23); Glucose 125 mg/dL (74-106)
[2024-05-20] MEDS: POTASSIUM CHL 20MEQ/100ML 100 ML IV SCH (05:39)
[2024-05-20] MEDS: SODIUM CHLORIDE 0.9% 250 ML IV ONE (14:15)
[2024-05-21] VITALS (100 sets, daily range): BP systolic 86–141; BP diastolic 48–81; PULSE 68–106; RESP 11–29; TEMP 97.9–98.9; O2SAT 5–100
[2024-05-21 03:28] LABS: Calcium 9.5 mg/dL (8.7-10.4); Chloride 104 mmol/L (98-107); Potassium 3.5 mmol/L (3.5-5.1); Sodium 139 mmol/L (136-145)
[2024-05-21 03:29] LABS: Anion Gap 4 (5-15); Carbon Dioxide 31 mmol/L (20-30)
[2024-05-21 03:34] LABS: BUN/Creatinine Ratio 36.4 (10.0-20.0); Blood Urea Nitrogen 20 mg/dL (9-23); Glucose 137 mg/dL (74-106)
[2024-05-21 07:21] LABS: Basophils # (auto) 0.1 10 ^3/uL (0-0.2); Basophils % (auto) 0.6 % (0.0-2.0); Eosinophils # (auto) 0 10 ^3/uL (0-0.8); Eosinophils % (auto) 0.3 % (0.0-7.0); Hematocrit 39.9 % (36.0-46.0); Hemoglobin 13.1 g/dL (12.2-16.2); Lymphocytes # (auto) 1.5 10 ^3/uL (0.4-5.4); Lymphocytes % (auto) 16.4 % (10.0-50.0); Mean Corpuscular Hemoglobin 30.3 pg (28.0-32.0); Mean Corpuscular Hgb Conc. 32.8 g/dL (32.0-36.0); Mean Corpuscular Volume 92.3 fL (80.0-100.0); Monocytes # (auto) 0.7 10 ^3/uL (0-1.3); Monocytes % (auto) 7.5 % (0.0-12.0); Neutrophils # (auto) 6.8 10 ^3/uL (1.6-8.6); Neutrophils % (auto) 75.2 % (37.0-80.0); Nucleated Red Blood Cells % 0.1 %; Platelet Count (auto) 203 10^3/uL (140-450); Red Blood Cells 4.32 10^6/uL (4.0-5.20); Red Cell Distribution Width 15.9 % (11.8-14.3); White Blood Cell 9.1 10^3/uL (4.4-10.8)
[2024-05-21] MEDS: FUROSEMIDE 40 MG/4 ML VIAL IV SCH (17:07)
[2024-05-22] VITALS (50 sets, daily range): BP systolic 96–147; BP diastolic 55–85; PULSE 89–125; RESP 9–26; TEMP 98–98.7; O2SAT 88–100
[2024-05-22] MEDS: risperiDONE 1 MG TAB PO SCH (10:45)
[2024-05-22] MEDS: LEVOTHYROXINE SODIUM 25 MCG TAB PO SCH (12:07)
[2024-05-22] MEDS: METOPROLOL TARTRATE 25 MG TAB PO SCH (12:08)
[2024-05-22] MEDS: APIXABAN 5 MG TAB PO SCH (13:56)
[2024-05-22] MEDS: MORPHINE SULFATE INJ 2 MG/ml SYRG IV PRN (13:58)
[2024-05-22 20:01] LABS: Chloride 97 mmol/L (98-107); Potassium 4.2 mmol/L (3.5-5.1); Sodium 135 mmol/L (136-145)
[2024-05-22 20:02] LABS: Anion Gap 6 (5-15); Carbon Dioxide 32 mmol/L (20-30)
[2024-05-22 20:07] LABS: BUN/Creatinine Ratio 23.9 (10.0-20.0); Blood Urea Nitrogen 16 mg/dL (9-23); Glucose 218 mg/dL (74-106)
[2024-05-22] MEDS: MELATONIN 5 MG TAB PO ONE (22:37)
[2024-05-23] VITALS (30 sets, daily range): BP systolic 95–122; BP diastolic 55–86; PULSE 86–117; RESP 12–29; TEMP 97.3–99.3; O2SAT 85–100
[2024-05-23 05:10] LABS: Basophils # (auto) 0 10 ^3/uL (0-0.2); Basophils % (auto) 0.3 % (0.0-2.0); Eosinophils # (auto) 0 10 ^3/uL (0-0.8); Eosinophils % (auto) 0.5 % (0.0-7.0); Hematocrit 41.9 % (36.0-46.0); Hemoglobin 13.9 g/dL (12.2-16.2); Lymphocytes # (auto) 2.1 10 ^3/uL (0.4-5.4); Lymphocytes % (auto) 24.8 % (10.0-50.0); Mean Corpuscular Hemoglobin 30.4 pg (28.0-32.0); Mean Corpuscular Hgb Conc. 33.3 g/dL (32.0-36.0); Mean Corpuscular Volume 91.2 fL (80.0-100.0); Monocytes # (auto) 0.4 10 ^3/uL (0-1.3); Neutrophils # (auto) 5.9 10 ^3/uL (1.6-8.6); Neutrophils % (auto) 69.4 % (37.0-80.0); Nucleated Red Blood Cells % 0.1 %; Platelet Count (auto) 160 10^3/uL (140-450); Red Blood Cells 4.59 10^6/uL (4.0-5.20); Red Cell Distribution Width 15.8 % (11.8-14.3); White Blood Cell 8.5 10^3/uL (4.4-10.8)
[2024-05-23 05:23] LABS: Chloride 99 mmol/L (98-107); Potassium 3.4 mmol/L (3.5-5.1); Sodium 136 mmol/L (136-145)
[2024-05-23 05:24] LABS: Anion Gap 2 (5-15); Carbon Dioxide 35 mmol/L (20-30)
[2024-05-23 05:30] LABS: BUN/Creatinine Ratio 33.9 (10.0-20.0); Blood Urea Nitrogen 20 mg/dL (9-23); Glucose 127 mg/dL (74-106)
[2024-05-23] MEDS: MAGNESIUM SULFATE 1GM/100ML 100 ML IV ONE (12:11)
[2024-05-23] MEDS: Glucerna Carbsteady SHAKE Stawberry 8oz PO SCH (18:39)
[2024-05-23] MEDS: FUROSEMIDE 20 MG TAB PO SCH (18:40)
[2024-05-24] VITALS (14 sets, daily range): BP systolic 103–122; BP diastolic 61–72; PULSE 64–107; RESP 16–20; TEMP 97.7–99.5; O2SAT 91–99
[2024-05-24] MEDS: methylPREDNISolone SOD SUCC 40 MG/ML VL IV SCH (08:53)
[2024-05-24] MEDS: METOPROLOL TARTRATE 25 MG TAB PO SCH (22:06)
[2024-05-25] VITALS (32 sets, daily range): BP systolic 86–118; BP diastolic 51–76; PULSE 60–107; RESP 14–22; TEMP 98–99.5; O2SAT 90–99
[2024-05-25] MEDS: ACETAMINOPHEN 325 MG TAB PO PRN (11:25)
[2024-05-25 11:35] LABS: Hematocrit 42.4 % (36.0-46.0); Mean Corpuscular Hemoglobin 30.1 pg (28.0-32.0); Mean Corpuscular Volume 91.2 fL (80.0-100.0); Platelet Count (auto) 104 10^3/uL (140-450); Red Blood Cells 4.65 10^6/uL (4.0-5.20); White Blood Cell 13.2 10^3/uL (4.4-10.8)
[2024-05-25 11:46] LABS: Alanine Aminotransferase 47 U/L (7-40); Albumin 3.7 g/dL (3.2-4.8); Alkaline Phosphatase 72 U/L (46-116); Anion Gap 2 (5-15); Aspartate Aminotransferase 17 U/L (13-40); BUN/Creatinine Ratio 25.5 (10.0-20.0); Blood Urea Nitrogen 25 mg/dL (9-23); Calcium 9.6 mg/dL (8.7-10.4); Carbon Dioxide 35 mmol/L (20-30); Chloride 95 mmol/L (98-107); Glucose 247 mg/dL (74-106); Potassium 4.2 mmol/L (3.5-5.1); Sodium 132 mmol/L (136-145)
[2024-05-25 11:47] LABS: Bilirubin, Total 0.7 mg/dL (0.2-1.0); Total Protein 6.2 g/dL (5.7-8.2)
[2024-05-25 11:52] LABS: Band Neutrophils % (manual) 0; Basophils % (manual) 0 (0.0-2.0); Blast Cells 0; Eosinophils % (manual) 0 (0-7); Metamyelocytes % 0; Myelocytes % 0; Promyelocytes % 0; Reactive Lymphocytes 0
[2024-05-25] MEDS ORDERED: MUPIROCIN 2% OINT 15gm or 22gm TOP SCH (12:00)
[2024-05-25 12:58] LABS: Lymphocytes % (manual) 3 (10.0-50.0); Monocytes % (manual) 1 (0-12); Platelet Estimate Decreased
[2024-05-25] MEDS: SODIUM CHLORIDE 0.9% 250 ML IV SCH (13:08)
[2024-05-25] MEDS: ALBUMIN 25% 100 ML IV STA (16:15)
[2024-05-25] MEDS: InsuLIN REG 1unit/0.01ml Soln (100units/ml) SC STA (17:05)
[2024-05-25] MEDS: FUROSEMIDE 40 MG TAB PO SCH (17:17)
[2024-05-25] MEDS: METOPROLOL TARTRATE 25 MG TAB PO SCH (21:53)
[2024-05-25] MEDS ORDERED: METOPROLOL TARTRATE 25 MG TAB PO SCH (22:00)
[2024-05-25] MEDS: MUPIROCIN 2% OINT 15gm or 22gm TOP SCH (22:02)
[2024-05-26] VITALS (17 sets, daily range): BP systolic 112–120; BP diastolic 65–69; PULSE 81–103; RESP 15–20; TEMP 97.4–99.8; O2SAT 90–99
[2024-05-27] VITALS (17 sets, daily range): BP systolic 100–130; BP diastolic 54–83; PULSE 85–107; RESP 16–22; TEMP 97.7–99.1; O2SAT 92–99
[2024-05-27] MEDS: INSULIN LANTUS (GLARGINE) 1 /0.01ml (100units/ml) SC SCH (21:19)
[2024-05-28] VITALS (10 sets, daily range): BP systolic 90–129; BP diastolic 54–70; PULSE 92–102; RESP 16–20; TEMP 98–98.6; O2SAT 90–98
[2024-05-28 06:59] LABS: Anion Gap 6 (5-15); Carbon Dioxide 34 mmol/L (20-30); Chloride 95 mmol/L (98-107); Potassium 3.6 mmol/L (3.5-5.1); Sodium 135 mmol/L (136-145)
[2024-05-28 07:00] LABS: Basophils # (auto) 0 10 ^3/uL (0-0.2); Basophils % (auto) 0.3 % (0.0-2.0); Calcium 9.9 mg/dL (8.7-10.4); Eosinophils # (auto) 0.1 10 ^3/uL (0-0.8); Eosinophils % (auto) 1.1 % (0.0-7.0); Hematocrit 39.2 % (36.0-46.0); Hemoglobin 13.5 g/dL (12.2-16.2); Lymphocytes # (auto) 1.7 10 ^3/uL (0.4-5.4); Lymphocytes % (auto) 20.4 % (10.0-50.0); Mean Corpuscular Hemoglobin 31.2 pg (28.0-32.0); Mean Corpuscular Hgb Conc. 34.4 g/dL (32.0-36.0); Mean Corpuscular Volume 90.5 fL (80.0-100.0); Monocytes # (auto) 0.7 10 ^3/uL (0-1.3); Monocytes % (auto) 8.6 % (0.0-12.0); Neutrophils # (auto) 5.8 10 ^3/uL (1.6-8.6); Neutrophils % (auto) 69.6 % (37.0-80.0); Platelet Count (auto) 94 10^3/uL (140-450); Red Blood Cells 4.33 10^6/uL (4.0-5.20); Red Cell Distribution Width 15.3 % (11.8-14.3); White Blood Cell 8.3 10^3/uL (4.4-10.8)
[2024-05-28 07:05] LABS: Blood Urea Nitrogen 16 mg/dL (9-23); Glucose 200 mg/dL (74-106)
== END 2024-05-28 12:00 | DRG 207 ==
LOC: ER 11:26 → EDBD 11:26 → TELE 20:37 → CATH ICU 21:39 → UNDODEPER 04-25 13:53 → ICU WEST 04-25 17:05 → DOU IN ICU 05-22 16:08 → TELE-EAST 05-23 19:10
PROVIDERS: ADMIT Nurse Practitioner Family; ATTEND Internal Medicine
PROC: 0BH17EZ Insertion of Endotracheal Airway into Trachea, Via Natural or Artificial Opening (ICD-10-PCS; principal; 2024-04-24)
PROC: 02HV33Z Insertion of Infusion Device into Superior Vena Cava, Percutaneous Approach (ICD-10-PCS; 2024-04-24)
PROC: B548ZZA Ultrasonography of Superior Vena Cava, Guidance (ICD-10-PCS; 2024-04-24)
PROC: 5A1955Z Respiratory Ventilation, Greater than 96 Consecutive Hours (ICD-10-PCS; 2024-04-24)
PROC: 5A09357 Assistance with Respiratory Ventilation, Less than 24 Consecutive Hours, Continuous Positive Airway Pressure (ICD-10-PCS; 2024-04-24)
PROC: 0B938ZZ Drainage of Right Main Bronchus, Via Natural or Artificial Opening Endoscopic (ICD-10-PCS; 2024-05-02)
PROC: 0BCB8ZZ Extirpation of Matter from Left Lower Lobe Bronchus, Via Natural or Artificial Opening Endoscopic (ICD-10-PCS; 2024-05-02)
PROC: 03HY32Z Insertion of Monitoring Device into Upper Artery, Percutaneous Approach (ICD-10-PCS; 2024-05-03)
PROC: B54MZZA Ultrasonography of Right Upper Extremity Veins, Guidance (ICD-10-PCS; 2024-05-03)
PROC: 039C3ZZ Drainage of Left Radial Artery, Percutaneous Approach (ICD-10-PCS; 2024-05-03)
PROC: 02HV33Z Insertion of Infusion Device into Superior Vena Cava, Percutaneous Approach (ICD-10-PCS; 2024-05-14)
PROC: B548ZZA Ultrasonography of Superior Vena Cava, Guidance (ICD-10-PCS; 2024-05-14)
PROC: 5A09357 Assistance with Respiratory Ventilation, Less than 24 Consecutive Hours, Continuous Positive Airway Pressure (ICD-10-PCS; 2024-05-18)
PROC: 5A09357 Assistance with Respiratory Ventilation, Less than 24 Consecutive Hours, Continuous Positive Airway Pressure (ICD-10-PCS; 2024-05-19)
DX: J96.21 Acute and chronic respiratory failure with hypoxia (principal); I50.23 Acute on chronic systolic (congestive) heart failure; J18.9 Pneumonia, unspecified organism; J44.1 Chronic obstructive pulmonary disease with (acute) exacerbation; Z68.44 Body mass index [BMI] 60.0-69.9, adult; E87.20 Acidosis, unspecified; I48.92 Unspecified atrial flutter; E87.4 Mixed disorder of acid-base balance; I31.39 Other pericardial effusion (noninflammatory); Z99.11 Dependence on respirator [ventilator] status; I11.0 Hypertensive heart disease with heart failure; J96.22 Acute and chronic respiratory failure with hypercapnia; E66.01 Morbid (severe) obesity due to excess calories; K59.00 Constipation, unspecified; E11.9 Type 2 diabetes mellitus without complications; I48.91 Unspecified atrial fibrillation; E03.9 Hypothyroidism, unspecified; E87.6 Hypokalemia; F20.9 Schizophrenia, unspecified; F31.9 Bipolar disorder, unspecified; B95.62 Methicillin resistant Staphylococcus aureus infection as the cause of diseases classified elsewhere; Z20.822 Contact with and (suspected) exposure to COVID-19; Z88.5 Allergy status to narcotic agent; Z91.013 Allergy to seafood; Z79.899 Other long term (current) drug therapy; Z79.84 Long term (current) use of oral hypoglycemic drugs
CPT/HCPCS: 31645; 36415; 36569; 36600; 71045; 76604; 80048; 80053; 80202; 81001; 82805; 82962; 83036; 83735; 83880; 84100; 84132; 84443; 84484; 85007; 85025; 85027; 85379; 85610; 85652; 85730; 86141; 87070; 87077; 87081; 87086; 87186; 87205; 87426; 87804; 92610; 93005; 93306; 93970; 94002; 94003; 94640; 94660; 96365; 97110; 97163; 97530; 99291; A4565; G0378; J1815; J2405; J2470; J2704; J3480; J3490; J7060; P9047

== ENCOUNTER 2024-11-11 02:15 | Emergency (ER) | payer MEDICARE, MEDICAID ==
[~2024-11-11] VITALS: Ht 167.6 cm; Wt 154.0 kg
[~2024-11-11 02:15] MED LIST: ATOR20TA PO; BUDE0.5S IN; CLON-853 PO; DIVA500T12 PO; DOCU-94 PO; HYOS0.1250 PO; KEP500T PO; LEVO200C3 PO; METF-372 PO; MODA100T52 PO; MOMLQ PO; OMEP20TA PO; RIS1T PO; SERT-206 PO; TRIA0.1O TOP
[2024-11-11 02:59] LABS: Basophils # (auto) 0 10 ^3/uL (0-0.2); Basophils % (auto) 0.5 % (0.0-2.0); Eosinophils # (auto) 0.1 10 ^3/uL (0-0.8); Eosinophils % (auto) 1.3 % (0.0-7.0); Hematocrit 43.9 % (36.0-46.0); Hemoglobin 14.3 g/dL (12.2-16.2); Lymphocytes # (auto) 0.7 10 ^3/uL (0.4-5.4); Lymphocytes % (auto) 13.7 % (10.0-50.0); Mean Corpuscular Hemoglobin 30.6 pg (28.0-32.0); Mean Corpuscular Hgb Conc. 32.5 g/dL (32.0-36.0); Monocytes # (auto) 0.5 10 ^3/uL (0-1.3); Monocytes % (auto) 9.5 % (0.0-12.0); Neutrophils # (auto) 3.8 10 ^3/uL (1.6-8.6); Nucleated Red Blood Cells % 0.1 %; Platelet Count (auto) 158 10^3/uL (140-450); Red Blood Cells 4.67 10^6/uL (4.0-5.20); Red Cell Distribution Width 14.6 % (11.8-14.3)
[2024-11-11 03:13] LABS: Alanine Aminotransferase 21 U/L (7-40); Albumin 4.1 g/dL (3.2-4.8); Alkaline Phosphatase 86 U/L (46-116); Anion Gap 4 (5-15); Aspartate Aminotransferase 19 U/L (13-40); Blood Urea Nitrogen 9 mg/dL (9-23); Calcium 9.6 mg/dL (8.7-10.4); Lipase 30 U/L (12-53); Potassium 3.8 mmol/L (3.5-5.1); Sodium 138 mmol/L (136-145); Total Protein 6.8 g/dL (5.7-8.2)
[2024-11-11 03:14] LABS: Bilirubin, Total 0.7 mg/dL (0.2-1.0)
[2024-11-11 03:15] LABS: Carbon Dioxide 36 mmol/L (20-31); Chloride 98 mmol/L (98-107); Glucose 148 mg/dL (74-106)
[2024-11-11] MEDS: HYDROcodone-ACET 10/325MG TAB PO ONE (03:55)
[2024-11-11 07:45] VITALS: PULSE 87; RESP 22; O2SAT 92
[2024-11-11 08:00] LABS: Urine Bacteria None Seen /hpf (None Seen)
[2024-11-11 08:27] LABS: Urine Blood Negative /uL (Negative); Urine Clarity Clear (Clear); Urine Color Light-Yellow (Yellow); Urine Protein, UAD Negative (Negative); Urine Specific Gravity 1.015 (1.001-1.035); Urine Squamous Epithelial Cell FEW /hpf (<5); Urine Urobilinogen Normal (Negative); Urine WBC 2 /HPF (0-5)
--- NOTE | 2024-11-11 11:16 | ED.PDOC ---
History of Present Illness HPI Comments 54-year-old female patient brought in by EMS for lower back pain. Patient states that she has mild back pain at times due to lying in the bed. Patient states that she had some sort of an injury to her foot a few months ago and has been unable to walk. Patient believes that the injury to her foot was due to diabetes patient states that she has been in the nursing facility. Patient denies being able to ambulate. Patient states that about 1 week ago she started being able to transfer from the bed to the wheelchair. Patient has history of diabetes, hypertension and COPD. Patient states that she is on oxygen at 4 liters/minute all the time. Patient is currently on 2 liters/minute. Patient was treated with [place] and states that her pain has decreased. Patient states her pain is currently a 6/10 and does not want any other pain medications. Patient also reports that she has had a cough for 3 weeks. Patient denies fevers. Patient denies shortness of breath. Chief Complaint: Back Pain Time Seen by MD: 10:53 Reviewed Notes: Nurses Notes, Medical Insurance Claims Processor Notes, Medications, Allergies Allergies: Coded Allergies: Codeine (Verified Allergy, Unknown, 04/24/24) Shellfish Allergy (Verified Allergy, Unknown, 04/25/24) Home Meds Active Scripts Benzonatate (Benzonatate) 200 Mg Cap, 1 CAP PO TID for 10 Days, #30 CAP 0 Refills Prov:BULL GARCIA [facility] 11/11/24 Albuterol Sulfate (Albuterol Sulfate Hfa) 108 Mcg/Act Aer, 108 MCG IN QID PRN for 14 Days, #1 AER 0 Refills Prov:BULL GARCIA [facility] 11/11/24 Amoxicillin & Pot Clavulanate (AUGMENTIN TABLET) 875 Mg Tb, 875 MG PO BID for 10 Days, #20 TAB 0 Refills Prov:BULL GARCIA [facility] 11/11/24 Reported Medications Risperidone (RisperDAL TABLET) 1 Mg Tb, 2 TAB PO QPM, #30 TAB 1 Refill 04/25/24 Atorvastatin Calcium (Lipitor) 20 Mg Tab, 1 TAB PO QHSP, #90 TAB 1 Refill 04/25/24 Divalproex Sodium (Divalproex Sodium Er) 500 Mg Tab, 250 MG PO Q12HR, TAB 04/25/24 Metformin Hydrochloride (Metformin Hcl) 1,000 Mg Tab, 1 TAB PO BID, #60 TAB 5 Refills 04/25/24 Omeprazole (Gnp Omeprazole) 20 Mg Tab, 40 MG PO DAILY, TAB 04/25/24 Sertraline Hcl (Sertraline Hcl) 50 Mg Tab, 1 TAB PO DAILY PRN for depression, #30 TAB 5 Refills 04/25/24 Modafinil (MODAFINIL) 100 Mg Tab, 100 MG PO DAILY, TAB 04/25/24 Levothyroxine Sodium (Levothyroxine Sodium) 200 Mcg Cap, 200 MCG PO DAILY, CAP 04/25/24 Hyoscyamine Sulfate (Levsin) 0.125 Mg Tab, 1 TAB PO Q6HP PRN for secretions, #90 TAB 1 Refill 04/25/24 Budesonide (Inhalation) (Budesonide) 0.5 Mg/2 Ml Lisset, 0.5 MG IN Q12HP PRN for SHORTNESS OF BREATH, ML 04/25/24 Clonazepam (Clonazepam) 1 Mg Tab, 1 MG PO Q4HP PRN for SEIZURES, TAB 04/25/24 Levetiracetam (KEPPRA TABLET) 500 Mg Tb, 500 MG PO BID, TAB 04/25/24 Docusate Sodium (Colace) 100 Mg Cap, 2 CAP PO BID PRN for FOR CONSTIPATION, #30 CAP 04/25/24 Magnesium Hydroxide (MILK OF MAGNESIA ORAL SUSPENSION) 30 Ml Ss, 30 ML PO, ML 04/25/24 Triamcinolone Acetonide (Triamcinolone Acetonide) 0.1 % Oin, 1 APPLIC TOP BID, #454 GRAMS 04/25/24 Information Source: Patient Mode of Arrival: EMS Past Medical History PAST MEDICAL HISTORY: CHF, COPD, HTN Surgical History: Denies all surgeries EXECUTIVE PILOT History: No Pertinent EXECUTIVE PILOT History Family History Family History: Reviewed,noncontributory to illness Social History Smoker: Non-Smoker Alcohol: Denies ETOH Use Drugs: Denies Drug Use Lives In: Assisted Care Constitutional: reports: weakness EENTM: denies: blurred vision, double vision, ear bleeding, ear discharge, ear drainage, ear pain, ear ringing, eye pain, eye redness, hearing loss, mouth pain, mouth swelling, nasal discharge, nose bleeding, nose congestion, nose pain, photophobia, tearing, throat pain, throat swelling, voice changes, others Respiratory: reports: cough, shortness of breath Cardiovascular: denies: chest pain, dizzy spells, diaphoresis, Dyspnea on exertion, edema, irregular heart beat, left arm pain, lightheadedness, palpitations, PND, syncope, others Gastrointestinal: denies: abdomen distended, abdominal pain, blood streaked bowels, constipated, diarrhea, dysphagia, difficulty swallowing, hematemesis, melena, nausea, poor appetite, poor fluid intake, rectal bleeding, rectal pain, vomiting, others Genitourinary: denies: abnormal vagina bleeding, burning, dyspareunia, dysuria, flank pain, frequency, hematuria, incontinence, pain, , vagina discharge, urgency, others Neurological: denies: dizziness, fainting, headache, left sided numbness, left sided weakness, numbness, paresthesia, pre-existing deficit, right sided numbness, right sided weakness, seizure, speech problems, tingling, tremors, weakness, others Musculoskeletal: reports: back pain (lower back pain, bilaterally) Integumetry: denies: bruises, change in color, change in hair/nails, dryness, laceration, lesions, lumps, rash, wounds, others Allergic/Immunocompromised: denies: Difficulty Healing, Frequent Infections, Hives, Itching, others Hematologic/Lymphatic: denies: anemia, blood clots, easy bleeding, easy bruising, swollen glands, others Endocrine: denies: excessive hunger, excessive sweating, excessive thirst, excessive urination, flushing, intolerance to cold, intolerance to heat, unexplained weight gain, unexplained weight loss, others Psychiatric: denies: anxiety, bipolar disorder, depression, hopeless, panic disorder, schizophrenia, sleepless, suicidal, others All Other Systems: Reviewed and Negative Physical Exam General Appearance: Normal, Obese HEENT: NOT DONE Neck: Full Range of Motion, Tender Lateral Respiratory: Decreased Breath Sounds, Lungs Clear, Other (2 LPM oxygen) Cardiovascular: No Edema, No JVD, No Murmur, No Gallop, Normal Peripheral Pulses, Regular Rate/Rhythm Breast Exam: Deferred Gastrointestinal: Abnormal Bowel Sounds Genitalia: Deferred Pelvic: Deferred Rectal: Deferred Extremities: No calf tenderness, Normal capillary refill, Normal inspection, Normal range of motion, Non-tender, No pedal edema Neurologic: Normal Affect Cerebellar Function: NOT DONE Reflexes: NOT DONE Skin: Dry, Normal Color, Warm Lymphatic: No Adenopathy Was a procedure done? Was a procedure done?: No Differential Dx Considerations may include: lumbar back pain, lumbar back strain, COPD, CHF X-Ray, Labs, Meds, VS Vital Signs Date Time Temp Pulse Resp B/P (MAP) Pulse Ox O2 Delivery O2 Flow Rate FiO2 11/11/24 11:11 96 18 94 Room Air 11/11/24 11:11 98.1 96 18 124/86 (99) 94 98.1 11/11/24 07:45 87 22 92 Nasal Cannula* 2 28 11/11/24 07:35 97.6 81 14 117/63 (81) 91 97.6 11/11/24 03:40 Room Air* 0 21 11/11/24 03:38 99.0 95 20 127/63 (84) 92 99.0 11/11/24 02:15 99.0 86 16 107/68 (81) 86 Lab Test 11/11/24 07:59 11/11/24 05:35 11/11/24 03:45 11/11/24 02:37 Range/Units Urine Color Light-yellow Yellow Urine Clarity Clear Clear Urine pH 6.0 5.0-9.0 Urine Specific Arab 1.015 1.001-1.035 Urine Protein Negative Negative Urine Ketones Negative Negative Urine Blood Negative Negative /uL Urine Nitrite Negative Negative Urine Bilirubin Negative Negative Urine Urobilinogen Normal Negative mg/dL Urine Leukocyte Esterase Negative Negative /uL Urine RBC <1 0 - 4 /hpf Urine Microscopic WBC 2 0-5 /HPF Urine Squamous Epithelial Cells Few <5 /hpf Urine Bacteria None seen None Seen /hpf Urine Glucose Normal Normal mg/dL Troponin I High Sensitivity 5 5 5 </=34 ng/L White Blood Count 5.0 4.4-10.8 10^3/uL Red Blood Count 4.67 4.0-5.20 10^6/uL Hemoglobin 14.3 12.2-16.2 g/dL Hematocrit 43.9 36.0-46.0 % Mean Corpuscular Volume 94.0 80.0-100.0 fL Mean Corpuscular Hemoglobin 30.6 28.0-32.0 pg Mean Corpuscular Hemoglobin Concent 32.5 32.0-36.0 g/dL Red Cell Distribution Width 14.6 H 11.8-14.3 % Platelet Count 158 140-450 10^3/uL Mean Platelet Volume 9.0 6.9-10.8 fL Neutrophils (%) (Auto) 75.0 37.0-80.0 % Lymphocytes (%) (Auto) 13.7 10.0-50.0 % Monocytes (%) (Auto) 9.5 0.0-12.0 % Eosinophils (%) (Auto) 1.3 0.0-7.0 % Basophils (%) (Auto) 0.5 0.0-2.0 % Neutrophils # (Auto) 3.8 1.6-8.6 10 ^3/uL Lymphocytes # (Auto) 0.7 0.4-5.4 10 ^3/uL Monocytes # (Auto) 0.5 0-1.3 10 ^3/uL Eosinophils # (Auto) 0.1 0-0.8 10 ^3/uL Basophils # (Auto) 0 0-0.2 10 ^3/uL Nucleated Red Blood Cells 0.1 % Sodium Level 138 136-145 mmol/L Potassium Level 3.8 3.5-5.1 mmol/L Chloride Level 98 98-107 mmol/L Carbon Dioxide Level 36 H 20-31 mmol/L Anion Gap 4 L 5-15 Blood Urea Nitrogen 9 9-23 mg/dL Creatinine 0.69 0.550-1.02 mg/dL Glomerular Filtration Rate Calc 103 >90 mL/min BUN/Creatinine Ratio 13.0 10.0-20.0 Serum Glucose 148 H 74-106 mg/dL Calcium Level 9.6 8.7-10.4 mg/dL Total Bilirubin 0.7 0.2-1.0 mg/dL Aspartate Amino Transferase (AST) 19 13-40 U/L Alanine Aminotransferase (ALT) 21 7-40 U/L Alkaline Phosphatase 86 46-116 U/L B-Type Natriuretic Peptide 108.08 0-100 pg/mL Total Protein 6.8 5.7-8.2 g/dL Albumin 4.1 3.2-4.8 g/dL Lipase 30 12-53 U/L Current Medications Medications (Trade) Dose Ordered Sig/Jennie Route Start Time Stop Time Status Last Admin Acetaminophen/ Hydrocodone Bitart ([place] 10/325MG Tab) 1 tab ONCE ONCE PO 11/11/24 02:30 11/11/24 02:31 DC 11/11/24 03:55 PATIENT: JESSICA VU ACCT: [id number] UNIT: [id number] : 1970 LOC: ER ROOM / BED: / AGE / SEX: 54 / F ADM STATUS: REG ER SERVICE 1134 ORDERING PHYSICIAN: BULL GARCIA PROCEDURE(s): CXR1 - CHEST XRAY 1 VIEW REASON: cough x 3 weeks ORDER NUMBER(s): [id number], ACCESSION NUMBER(s): [id number] CHEST RADIOGRAPH Indication: cough x 3 weeks Technique: Single frontal view of the chest was obtained COMPARISON: XY CHEST PORTABLE on DOS: 05/21/24, XY CHEST PORTABLE on DOS: 05/20/24, XY CHEST PORTABLE on DOS: 05/19/24, XY CHEST PORTABLE on DOS: 05/18/24, XY CHEST PORTABLE on DOS: 05/17/24 FINDINGS: Lines and Tubes: None Lungs: Clear Pleura: Effacement left hemidiaphragm and left heart border. Small pleural effusion can not be excluded. Lateral view would be most helpful for further assessment. Mildly increased density seen to the right mid and lower lung renteria which possibly may be related to overlying soft tissues. Slightly less pulmonary vascular redistribution. No pneumothorax. Cardiomediastinal contours: Persistent moderately severe cardiomegaly. Bones: Unremarkable IMPRESSION: 1. Persistent cardiomegaly, unchanged Effacement left hemidiaphragm and left heart border which is noted on the prior study. Decreased pulmonary vascular redistribution when compared to the prior study Lateral view would be helpful for further assessment. ATED BY: TESSA HOUSTON MD DICTATED DATE/TIME: 11/11/24 120 SIGNED BY: TESSA HOUSTON MD SIGNED DATE/TIME: 11/11/24 120 CC: X-Ray, Labs, Meds, VS Comment On re-evaluation patient has symptomatic improvement. Patient is stable for discharge at this time. All test results and diagnostic imaging have been interpreted. All diagnostic findings, discharge care, and education instruction provided to the patient. Follow-up with PCP in 2-3 days Patient verbalized understanding, discharge instructions and agrees to treatment plan Vital signs are stable Patient is in wheelchair Patient advised of which symptoms necessitate a return visit to the emergency room. Patient to return emergency room for any new worsening symptoms. Patient is aware that the purpose of this visit is for an acute medical emergency requiring emergent stabilization. Chronic conditions, including malignancies have not been ruled out. Patient is instructed to follow up with PCP as directed for continued care and workup. If unable to arrange follow up, patient is to return to the emergency room for reassessment. Patient was given verbal and written discharge instructions and acknowledges understanding Time of 1ST Reevaluation: 12:00 Reevaluation 1ST: Unchanged Time of 2ND Reevaluation: 12:22 Reevaluation 2ND: Unchanged Patient Education/Counseling: Diagnosis, Treatment, Prognosis Family Education/Counseling: No Family Present Change of Shift?: No Departure 1 Departure Time of Disposition: 12:21 Impression: Primary Impression: Lumbar back pain Additional Impressions: Bronchitis CHF (congestive heart failure) Qualified Codes: I50.9 - Heart failure, unspecified Disposition: 03 LONGTERM FACILITY Condition: Fair e-Prescriptions Benzonatate (Benzonatate) 200 Mg Cap 1 CAP PO TID for 10 Days, #30 CAP 0 Refills Prov: BULL GARCIA 11/11/24 Albuterol Sulfate (Albuterol Sulfate Hfa) 108 Mcg/Act Aer 108 MCG IN QID PRN for 14 Days, #1 AER 0 Refills Prov: BULL GARCIA 11/11/24 Amoxicillin & Pot Clavulanate (AUGMENTIN TABLET) 875 Mg Tb 875 MG PO BID for 10 Days, #20 TAB 0 Refills Prov: BULL GARCIA 11/11/24 Discharged With: Self Critical Care Note Critical Care Time?: No Stability Stability form required: No Heart Score Heart Score: Heart Score Response (Comments) Value History N/A 0 EKG N/A 0 Age N/A 0 Risk Factors N/A 0 Troponin N/A 0 Total 0 BULL GARCIA Nov 11, 2024 11:16
[2024-11-11] MEDS ORDERED: BENZ200C64 PO (12:04)
[2024-11-11] MEDS ORDERED: ALBU108A5 IN (12:04)
[2024-11-11] MEDS ORDERED: AUG875T PO (12:04)
--- NOTE | 2024-11-11 12:09 | DVH ---
CHEST RADIOGRAPH Indication: cough x 3 weeks Technique: Single frontal view of the chest was obtained COMPARISON: XY CHEST PORTABLE on DOS: 05/21/24, XY CHEST PORTABLE on DOS: 05/20/24, XY CHEST PORTABLE o n DOS: 05/19/24, XY CHEST PORTABLE on DOS: 05/18/24, XY CHEST PORTABLE on DOS: 05/17/24 FINDINGS: Lines and Tubes: None Lungs: Clear Pleura: Effacement left hemidiaphragm and left heart border. Small pleural effusion can not be exclud ed. Lateral view would be most helpful for further assessment. Mildly increased density seen to the r ight mid and lower lung renteria which possibly may be related to overlying soft tissues. Slightly less pulmonary vascular redistribution. No pneumothorax. Cardiomediastinal contours: Persistent moderately severe cardiomegaly. Bones: Unremarkable IMPRESSION: 1. Persistent cardiomegaly, unchanged Effacement left hemidiaphragm and left heart border which is noted on the prior study. Decreased pulmonary vascular redistribution when compared to the prior study Lateral view would be helpful for further assessment.
[2024-11-12 00:10] VITALS: PULSE 102; RESP 12; TEMP 97.6; O2SAT 94
[2024-11-12 03:32] VITALS: BP 149/93; PULSE 95; RESP 27; O2SAT 96
[2024-11-12 04:01] VITALS: BP 136/77; PULSE 97; O2SAT 97
[2024-11-12 08:00] VITALS: BP 136/85; PULSE 106; RESP 12; O2SAT 91
== END 2024-11-12 15:28 | disposition short-term general hospital (02) ==
LOC: ER 02:15 → EDBD 02:15 → ER 11-12 15:28
DX: M54.59 Other low back pain (principal); J40 Bronchitis, not specified as acute or chronic; I11.0 Hypertensive heart disease with heart failure; I50.89 Other heart failure; Z88.8 Allergy status to other drugs, medicaments and biological substances; Z79.899 Other long term (current) drug therapy; Z88.6 Allergy status to analgesic agent
CPT/HCPCS: 36415; 71045; 80053; 81001; 83690; 83880; 84484; 85025; 94660

== ENCOUNTER 2025-02-08 09:40 | Inpatient (IN) | payer OTHER, MEDICARE, MEDICAID ==
[~2025-02-08] VITALS: Ht 167.6 cm; Wt 163.4 kg
[~2025-02-08 09:40] MED LIST changes: +ALBU108A5 IN; +AUG875T PO; +BENZ200C64 PO
--- NOTE | 2025-02-08 10:21 | ED.PDOC ---
History of Present Illness HPI Comments 55 y.o female with PMHx of HTN, COPD, CHF and thyroid disease, presents to the ED via EMS for a chief complaint of generalized weakness associated with a headache and abdominal pain that started this morning upon waking up. EMS reports patient currently resides at [facility] where staff founf patient outside in her wheelchair complaining about her headache and abdominal pain. Patient reports abdominal pain is located on bilateral sides with a generalized headache. Patient states abdominal pain has improved since arrival to the ED and denies any nausea, vomiting, diarrhea, fever or chills. Patient denies any substance, alcohol or tobacco use. Time Seen by MD: 09:38 Reviewed Notes: Nurses Notes, Consulting Technical Director Notes, Medications, Allergies Allergies: Coded Allergies: Codeine (Verified Allergy, Unknown, 04/24/24) Shellfish Allergy (Verified Allergy, Unknown, 04/25/24) Home Meds Active Scripts Benzonatate (Benzonatate) 200 Mg Cap, 1 CAP PO TID for 10 Days, #30 CAP 0 Refills Prov:RADHABULL [facility] 11/11/24 Albuterol Sulfate (Albuterol Sulfate Hfa) 108 Mcg/Act Aer, 108 MCG IN QID PRN for 14 Days, #1 AER 0 Refills Prov:BULL GARCIA [facility] 11/11/24 Amoxicillin & Pot Clavulanate (AUGMENTIN TABLET) 875 Mg Tb, 875 MG PO BID for 10 Days, #20 TAB 0 Refills Prov:BULL GARCIA [facility] 11/11/24 Reported Medications Risperidone (RisperDAL TABLET) 1 Mg Tb, 2 TAB PO QPM, #30 TAB 1 Refill 04/25/24 Atorvastatin Calcium (Lipitor) 20 Mg Tab, 1 TAB PO QHSP, #90 TAB 1 Refill 04/25/24 Divalproex Sodium (Divalproex Sodium Er) 500 Mg Tab, 250 MG PO Q12HR, TAB 04/25/24 Metformin Hydrochloride (Metformin Hcl) 1,000 Mg Tab, 1 TAB PO BID, #60 TAB 5 Refills 04/25/24 Omeprazole (Gnp Omeprazole) 20 Mg Tab, 40 MG PO DAILY, TAB 04/25/24 Sertraline Hcl (Sertraline Hcl) 50 Mg Tab, 1 TAB PO DAILY PRN for depression, #30 TAB 5 Refills 04/25/24 Modafinil (MODAFINIL) 100 Mg Tab, 100 MG PO DAILY, TAB 04/25/24 Levothyroxine Sodium (Levothyroxine Sodium) 200 Mcg Cap, 200 MCG PO DAILY, CAP 04/25/24 Hyoscyamine Sulfate (Levsin) 0.125 Mg Tab, 1 TAB PO Q6HP PRN for secretions, #90 TAB 1 Refill 04/25/24 Budesonide (Inhalation) (Budesonide) 0.5 Mg/2 Ml Lisset, 0.5 MG IN Q12HP PRN for SHORTNESS OF BREATH, ML 04/25/24 Clonazepam (Clonazepam) 1 Mg Tab, 1 MG PO Q4HP PRN for SEIZURES, TAB 04/25/24 Levetiracetam (KEPPRA TABLET) 500 Mg Tb, 500 MG PO BID, TAB 04/25/24 Docusate Sodium (Colace) 100 Mg Cap, 2 CAP PO BID PRN for FOR CONSTIPATION, #30 CAP 04/25/24 Magnesium Hydroxide (MILK OF MAGNESIA ORAL SUSPENSION) 30 Ml Ss, 30 ML PO, ML 04/25/24 Triamcinolone Acetonide (Triamcinolone Acetonide) 0.1 % Oin, 1 APPLIC TOP BID, #454 GRAMS 04/25/24 Information Source: Patient, Emergency Med Personnel Mode of Arrival: EMS Severity: Moderate Timing: Hours Duration: Since onset Prehospital treatment: 12 Lead EKG, [facility] Past Medical History PAST MEDICAL HISTORY: CHF, COPD, HTN Surgical History: Denies all surgeries WAXED BAG MACHINE OPERATOR 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: No Pertinent WAXED BAG MACHINE OPERATOR History Family History Family History: Reviewed,noncontributory to illness Social History Smoker: Non-Smoker Alcohol: Denies ETOH Use Drugs: Denies Drug Use Lives In: Assisted Care Constitutional: reports: weakness; denies: chills, diaphoresis, fatigue, fever, malaise, sweats, others EENTM: denies: blurred vision, double vision, ear bleeding, ear discharge, ear drainage, ear pain, ear ringing, eye pain, eye redness, hearing loss, mouth pain, mouth swelling, nasal discharge, nose bleeding, nose congestion, nose pain, photophobia, tearing, throat pain, throat swelling, voice changes, others Respiratory: denies: cough, hemoptysis, orthopnea, SOB at rest, shortness of breath, SOB with excertion, stridor, wheezing, others Cardiovascular: denies: chest pain, dizzy spells, diaphoresis, Dyspnea on exertion, edema, irregular heart beat, left arm pain, lightheadedness, palpitations, PND, syncope, others Gastrointestinal: reports: abdominal pain; denies: abdomen distended, blood streaked bowels, constipated, diarrhea, dysphagia, difficulty swallowing, hematemesis, melena, nausea, poor appetite, poor fluid intake, rectal bleeding, rectal pain, vomiting, others Genitourinary: denies: abnormal vagina bleeding, burning, dyspareunia, dysuria, flank pain, frequency, hematuria, incontinence, pain, , vagina discharge, urgency, others Neurological: reports: headache; denies: dizziness, fainting, left sided numbness, left sided weakness, numbness, paresthesia, pre-existing deficit, right sided numbness, right sided weakness, seizure, speech problems, tingling, tremors, weakness, others Musculoskeletal: denies: back pain, gout, joint pain, joint swelling, muscle pain, muscle stiffness, neck pain, others Integumetry: denies: bruises, change in color, change in hair/nails, dryness, laceration, lesions, lumps, rash, wounds, others Allergic/Immunocompromised: denies: Difficulty Healing, Frequent Infections, Hives, Itching, others Hematologic/Lymphatic: denies: anemia, blood clots, easy bleeding, easy bruisin g, swollen glands, others Endocrine: denies: excessive hunger, excessive sweating, excessive thirst, excessive urination, flushing, intolerance to cold, intolerance to heat, unexplained weight gain, unexplained weight loss, others Psychiatric: denies: anxiety, bipolar disorder, depression, hopeless, panic disorder, schizophrenia, sleepless, suicidal, others All Other Systems: Reviewed and Negative Physical Exam General Appearance: Moderate Distress, Obese HEENT: Normal ENT Inspection, Pharynx Normal, TMs Normal Neck: Full Range of Motion, Non-Tender, Normal, Normal Inspection Respiratory: Chest Non-Tender, Lungs Clear, No Accessory Muscle Use, No Respiratory Distress, Normal Breath Sounds Cardiovascular: No Edema, No JVD, No Murmur, No Gallop, Normal Peripheral Pulses, Regular Rate/Rhythm Breast Exam: Deferred Gastrointestinal: No Organomegaly, Non Tender, No Pulsatile Mass, Normal Bowel Sounds, Soft Genitalia: Deferred Pelvic: Deferred Rectal: Deferred Extremities: No calf tenderness, Pedal edema Musculoskeletal : Apperance: Normal Neurologic: Alert, No Motor Deficits, No Sensory Deficits Cerebellar Function: NOT DONE Reflexes: NOT DONE Skin: Normal Color Peripheral Pulses: 3+ Radial (R), 3+ Radial (L) Lymphatic: No Adenopathy Was a procedure done? Was a procedure done?: No EKG EKG : Pulse Rate (adult): 60 Cardiac Rhythm: Afib Differential Dx Considerations may include: Dehydration, Electrolyte Imbalance, Migraine, Clustered Headache, Gastroenteritis, Viral Syndrome X-Ray, Labs, Meds, VS Vital Signs Date Time Temp Pulse Resp B/P (MAP) Pulse Ox O2 Delivery O2 Flow Rate FiO2 02/08/25 10:42 65 17 96 Nasal Cannula* 4 36 02/08/25 10:42 64 11 139/67 (91) 95 02/08/25 10:21 60 02/08/25 09:44 60 Lab Test 02/08/25 10:23 Range/Units White Blood Count 5.1 4.4-10.8 10^3/uL Red Blood Count 4.75 4.0-5.20 10^6/uL Hemoglobin 14.6 12.2-16.2 g/dL Hematocrit 44.6 36.0-46.0 % Mean Corpuscular Volume 93.9 80.0-100.0 fL Mean Corpuscular Hemoglobin 30.6 28.0-32.0 pg Mean Corpuscular Hemoglobin Concent 32.6 32.0-36.0 g/dL Red Cell Distribution Width 14.9 H 11.8-14.3 % Platelet Count 177 140-450 10^3/uL Mean Platelet Volume 9.0 6.9-10.8 fL Neutrophils (%) (Auto) 60.7 37.0-80.0 % Lymphocytes (%) (Auto) 31.1 10.0-50.0 % Monocytes (%) (Auto) 5.9 0.0-12.0 % Eosinophils (%) (Auto) 1.9 0.0-7.0 % Basophils (%) (Auto) 0.4 0.0-2.0 % Neutrophils # (Auto) 3.1 1.6-8.6 10 ^3/uL Lymphocytes # (Auto) 1.6 0.4-5.4 10 ^3/uL Monocytes # (Auto) 0.3 0-1.3 10 ^3/uL Eosinophils # (Auto) 0.1 0-0.8 10 ^3/uL Basophils # (Auto) 0 0-0.2 10 ^3/uL Nucleated Red Blood Cells 0.1 % Sodium Level 145 136-145 mmol/L Potassium Level 3.8 3.5-5.1 mmol/L Chloride Level 106 98-107 mmol/L Carbon Dioxide Level 34 H 20-31 mmol/L Anion Gap 5 5-15 Blood Urea Nitrogen 14 9-23 mg/dL Creatinine 0.91 0.550-1.02 mg/dL Glomerular Filtration Rate Calc 75 >90 mL/min BUN/Creatinine Ratio 15.4 10.0-20.0 Serum Glucose 141 H 74-106 mg/dL Calcium Level 9.5 8.7-10.4 mg/dL Patient alert. Complaining of abdominal discomfort. Vitals stable. Answering all questions. Abdomen is soft. Possible urosepsis. Placed a Carrillo catheter. Blood sugar slightly elevated. WBC within normal limits. Continues to have abdominal discomfort. Explained to the patient. Cardiac monitoring. Time of 1ST Reevaluation: 10:16 Reevaluation 1ST: Unchanged Patient Education/Counseling: Diagnosis, Treatment, Prognosis Family Education/Counseling: No Family Present Departure 1 Departure Time of Disposition: 12:08 Impression: Primary Impression: CHF (congestive heart failure) Qualified Codes: I50.43 - Acute on chronic combined systolic (congestive) and diastolic (congestive) heart failure Additional Impressions: Gastritis Qualified Codes: K29.00 - Acute gastritis without bleeding Uncontrolled diabetes mellitus Qualified Codes: E13.65 - Other specified diabetes mellitus with hyperglycemia Disposition: ADMITTED INPATIENT Admit to: Med Surg Condition: Guarded Critical Care Note Critical Care Time?: No Stability Stability form required: No Heart Score Heart Score: Heart Score Response (Comments) Value History N/A 0 EKG N/A 0 Age N/A 0 Risk Factors N/A 0 Troponin N/A 0 Total 0 I personally scribed for CAROLYN WRIGHT MD ([email or web address]) on 02/08/25 at 10:21. Electronically submitted by Larisa Frost ([facility]). CAROLYN WRIGHT MD Feb 08, 2025 10:21
[2025-02-08 10:41] LABS: Basophils # (auto) 0 10 ^3/uL (0-0.2); Basophils % (auto) 0.4 % (0.0-2.0); Chloride 106 mmol/L (98-107); Eosinophils # (auto) 0.1 10 ^3/uL (0-0.8); Eosinophils % (auto) 1.9 % (0.0-7.0); Hematocrit 44.6 % (36.0-46.0); Hemoglobin 14.6 g/dL (12.2-16.2); Lymphocytes # (auto) 1.6 10 ^3/uL (0.4-5.4); Lymphocytes % (auto) 31.1 % (10.0-50.0); Mean Corpuscular Hemoglobin 30.6 pg (28.0-32.0); Mean Corpuscular Hgb Conc. 32.6 g/dL (32.0-36.0); Mean Corpuscular Volume 93.9 fL (80.0-100.0); Monocytes # (auto) 0.3 10 ^3/uL (0-1.3); Monocytes % (auto) 5.9 % (0.0-12.0); Neutrophils # (auto) 3.1 10 ^3/uL (1.6-8.6); Neutrophils % (auto) 60.7 % (37.0-80.0); Nucleated Red Blood Cells % 0.1 %; Platelet Count (auto) 177 10^3/uL (140-450); Potassium 3.8 mmol/L (3.5-5.1); Red Blood Cells 4.75 10^6/uL (4.0-5.20); Red Cell Distribution Width 14.9 % (11.8-14.3); Sodium 145 mmol/L (136-145); White Blood Cell 5.1 10^3/uL (4.4-10.8)
[2025-02-08 10:42] VITALS: PULSE 65; RESP 17; O2SAT 96
[2025-02-08 10:42] LABS: Anion Gap 5 (5-15)
[2025-02-08 10:43] LABS: Calcium 9.5 mg/dL (8.7-10.4)
[2025-02-08 10:47] LABS: BUN/Creatinine Ratio 15.4 (10.0-20.0); Blood Urea Nitrogen 14 mg/dL (9-23)
[2025-02-08 10:48] LABS: Carbon Dioxide 34 mmol/L (20-31); Glucose 141 mg/dL (74-106)
[2025-02-08 12:51] LABS: Urine Bacteria None Seen /hpf (None Seen)
[2025-02-08 13:02] LABS: Urine Blood Negative /uL (Negative); Urine Clarity Clear (Clear); Urine Color Light-Yellow (Yellow); Urine Protein, UAD Negative (Negative); Urine Specific Gravity 1.016 (1.001-1.035); Urine Squamous Epithelial Cell FEW /hpf (<5); Urine Urobilinogen Normal (Negative); Urine WBC 1 /HPF (0-5)
[2025-02-08] MEDS ORDERED: ONDANSETRON HCL 4 MG/2 ML VIAL IV PRN (14:15)
[2025-02-08] MEDS ORDERED: DEXTROSE (50%) 50ML SYRG IV PRN (14:15)
[2025-02-08] MEDS ORDERED: NITROGLYCERIN 0.4 MG SL TAB SL PRN (14:15)
--- NOTE | 2025-02-08 14:20 | DVHHP2 ---
History of Present Illness Reason for Visit: Generalized weakness History of Present Illness Hoa Arciniega is a 55-year-old female with past medical history of hypertension, COPD, CHF, thyroid disease, bilateral foot surgeries, and sleep apnea who presents to the ED with generalized weakness, abdominal pain, and headache. Per reports patient was found outside on her wheelchair complaining of abdominal pain and headache. She currently resides a for [facility]. Patient denies any chest pain, fever, chills, lightheadedness, dizziness, recent trauma or injury, recent sick contacts, recent travels, ingestion of spoiled food, nausea, vomiting, or diarrhea. Patient also reports that she is compliant with her medications. Cardiovascular: CHF, HTN Pulmonary: COPD Endocrine: Hypothyroidism Past Medical History Sleep apnea Past Surgical History: Other (Bilateral foot surgeries) Family History: None Smoke: No ALCOHOL: none Lives: Jail Domestic Violence: Neg Review of Systems Constitutional: Yes: Weakness, Other (Headache) Gastrointestinal: Abdominal Pain Allergies: Coded Allergies: Codeine (Verified Allergy, Unknown, 04/24/24) Shellfish Allergy (Verified Allergy, Unknown, 04/25/24) Medications Current Medications Medications Dose Ordered Sig/Jennie Route Start Time Stop Time Status Last Admin Dose Admin Atorvastatin Calcium 20 mg QHSP PO 02/08/25 22:00 UNV Levetiracetam 500 mg BID PO 02/08/25 22:00 UNV Patient Own Medication 250 mg Q12HR PO 02/08/25 22:00 UNV Patient Own Medication 200 mcg DAILY PO 02/09/25 10:00 UNV Ondansetron HCl 4 mg Q4HP PRN IV 02/08/25 14:15 UNV Acetaminophen 650 mg Q6HP PRN PO 02/08/25 14:15 UNV Nitroglycerin 0.4 mg Q5MINP PRN SL 02/08/25 14:15 UNV Morphine Sulfate 2 mg Q30M PRN IV 02/08/25 14:15 UNV Diagnostic Test (Pha) 1 strip ACHS 02/08/25 17:00 UNV Insulin Human Regular ACHS SC 02/08/25 17:00 UNV Dextrose 50 ml UD PRN IV 02/08/25 14:15 UNV Exam Vital Signs Vital Signs Date Time Temp Pulse Resp B/P (MAP) Pulse Ox O2 Delivery O2 Flow Rate FiO2 02/08/25 13:30 57 16 160/81 (107) 99 02/08/25 12:18 98.0 98.0 02/08/25 10:42 Nasal Cannula* 4 36 General Appearance: Alert, Cooperative HEENT: Atraumatic, EOMI, Mucous membr. moist/pink Respiratory: Normal air movement Cardiovascular: Normal S1, Normal S2 Abdominal: Normal bowel sounds, Soft Neuro: Normal speech, Normal tone, Sensation intact Psych/Mental Status: Mental status NL, Mood NL Labs/Xrays Labs Test 02/08/25 12:46 02/08/25 10:23 Range/Units Urine Color Light-yellow Yellow Urine Clarity Clear Clear Urine pH 6.0 5.0-9.0 Urine Specific [place] 1.016 1.001-1.035 Urine Protein Negative Negative Urine Ketones Negative Negative Urine Blood Negative Negative /uL Urine Nitrite Negative Negative Urine Bilirubin Negative Negative Urine Urobilinogen Normal Negative mg/dL Urine Leukocyte Esterase Negative Negative /uL Urine RBC 1 0 - 4 /hpf Urine Microscopic WBC 1 0-5 /HPF Urine Squamous Epithelial Cells Few <5 /hpf Urine Bacteria None seen None Seen /hpf Urine Glucose Normal Normal mg/dL White Blood Count 5.1 4.4-10.8 10^3/uL Red Blood Count 4.75 4.0-5.20 10^6/uL Hemoglobin 14.6 12.2-16.2 g/dL Hematocrit 44.6 36.0-46.0 % Mean Corpuscular Volume 93.9 80.0-100.0 fL Mean Corpuscular Hemoglobin 30.6 28.0-32.0 pg Mean Corpuscular Hemoglobin Concent 32.6 32.0-36.0 g/dL Red Cell Distribution Width 14.9 H 11.8-14.3 % Platelet Count 177 140-450 10^3/uL Mean Platelet Volume 9.0 6.9-10.8 fL Neutrophils (%) (Auto) 60.7 37.0-80.0 % Lymphocytes (%) (Auto) 31.1 10.0-50.0 % Monocytes (%) (Auto) 5.9 0.0-12.0 % Eosinophils (%) (Auto) 1.9 0.0-7.0 % Basophils (%) (Auto) 0.4 0.0-2.0 % Neutrophils # (Auto) 3.1 1.6-8.6 10 ^3/uL Lymphocytes # (Auto) 1.6 0.4-5.4 10 ^3/uL Monocytes # (Auto) 0.3 0-1.3 10 ^3/uL Eosinophils # (Auto) 0.1 0-0.8 10 ^3/uL Basophils # (Auto) 0 0-0.2 10 ^3/uL Nucleated Red Blood Cells 0.1 % Sodium Level 145 136-145 mmol/L Potassium Level 3.8 3.5-5.1 mmol/L Chloride Level 106 98-107 mmol/L Carbon Dioxide Level 34 H 20-31 mmol/L Anion Gap 5 5-15 Blood Urea Nitrogen 14 9-23 mg/dL Creatinine 0.91 0.550-1.02 mg/dL Glomerular Filtration Rate Calc 75 >90 mL/min BUN/Creatinine Ratio 15.4 10.0-20.0 Serum Glucose 141 H 74-106 mg/dL Calcium Level 9.5 8.7-10.4 mg/dL EXAM: CT HEAD WITHOUT CONTRAST HISTORY: aloc COMPARISON: None TECHNIQUE: Axial images of the head were obtained and reformatted in coronal and sagittal planes. All CT scans at this medical facility are performed using dose modulation techniques as appropriate to a performed exam including the following: Automated exposure control was utilized; adjustment of the MA and/or KV according to patient size; and use of iterative reconstruction technique. CT Dose: CTDI volume is 55.91 mGy. Dose-length product is 1102.1 mGy*cm FINDINGS: There is no evidence of acute intracranial hemorrhage, mass, mass effect midline shift. There is no hydrocephalus or extra-axial fluid collection. Cruz-white matter differentiation is maintained. The visualized paranasal sinuses and mastoid air cells are clear. The calvarium is intact. IMPRESSION: 1. No acute intracranial process. Indication: abd pain Technique: CT axial images of the abdomen and pelvis are obtained without contrast. Coronal and sagittal reformats were obtained. Radiation Dose Information: CTDI volume is 27.88 mGy. Dose-length product is 1588.55 mGy*cm Comparison: None FINDINGS: There is limited interpretation of the abdomen and pelvis without administration of intravenous contrast. Limited examination with the left aspect of the abdomen not completely visualized. Heart size at the upper limits of normal. Bibasilar atelectasis. Adrenal glands, spleen, pancreas unremarkable in shape. Liver unremarkable in shape. Kidneys demonstrate no hydronephrosis, nephrolithiasis. Stomach is partially distended. Small bowel loops normal in caliber. Colonic diverticular disease. Moderate volume stool in the colon. Normal appendix. Abdominal aortic atherosclerotic disease. Bladder decompressed by Carrillo catheter. No free pelvic fluid. No inguinal lymphadenopathy. [id number] thoracolumbar degenerative disc disease. IMPRESSION: Doubt contrast. Additionally, the examination is limited secondary to the patient's left anterior abdomen not being completely imaged on this exa mination secondary to habitus 1. Colonic diverticular disease. 2. Other findings as described. Assessment/Plan Assessment/Plan Assessment Generalized weakness Intractable abdominal pain with headache Acute hypoxic respiratory failure ?A flutter Morbid obesity Colonic diverticular disease Mild to moderate thoracolumbar degenerative disc disease History of hypertension History of COPD History of CHF History of thyroid disease History of sleep apnea History of bilateral foot surgeries Patient is a resident at [facility] Plan Admit to med surge Supportive oxygen UA noted Beta-blockers Carrillo catheter EKG ordered again Hemoglobin A1c ISS and Accu-Cheks CPAP ordered CT abdomen and pelvis UDS CT head Diet Strict I&Os Daily weights Home medications reconciled DVT prophylaxis-SCDs PUD prophylaxis-not indicated no history of GERD or GI bleed Discussed plan of care with patient and nurse Counseled patient on lifestyle modifications, diet, and exercise Plan discussed with: Patient My Orders Orders - ALLA EM Procedure Category Date Status Time Ct Ab Pel Wo Con-No CT 02/08/25 Logged Oral Or Iv 13:53 Atorvastatin (Lipitor) PHA 02/08/25 Logged 22:00 Levetiracetam Tablet PHA 02/08/25 Logged (Keppra Tablet) 22:00 (Nf) Divalproex PHA 02/08/25 Logged Sodium (Divalproex 22:00 (Nf) Levothyroxine PHA 02/09/25 Logged Sodium 10:00 Admit ADMIT 02/08/25 Transmitted 14:11 Allergies [place] 02/08/25 In Process 14:11 Code Status CODE 02/08/25 Transmitted 14:11 Ondansetron Hcl PHA 02/08/25 Logged (Zofran) 14:15 Complete Blood Count LAB 02/09/25 Verified 04:00 Comprehensive LAB 02/09/25 Verified Metabolic Panel 04:00 Cardiac DIET 02/08/25 Transmitted Diet-2gna,Lofat,Lochol Dinner Acetaminophen Tablet [facility] 02/08/25 Logged (Tylenol Tablet) 14:15 Sequential [facility] 02/08/25 In Process Compression Device Nitroglycerin [facility] 02/08/25 Logged Sublingual (Ntrostat 14:15 Morphine Sulfate [facility] 02/08/25 Logged Injection 14:15 Stat Ekg For Chest [facility] 02/08/25 In Process Pain 14:11 Notify Md Of Changes [facility] 02/08/25 In Process From Base 14:11 Technology Program Manager For [facility] 02/08/25 In Process 24 Hours 14:11 Emergency Dysrhythmia [facility] 02/08/25 In Process Protocol 14:11 Rhythm Strips Once [facility] 02/08/25 In Process Every Shift 14:11 Oxygen By Nasal RT 02/08/25 Transmitted Cannula 14:11 Strict I & O [facility] 02/08/25 In Process 14:11 Daily Weight [facility] 02/08/25 In Process 14:11 Drug Screen LAB 02/08/25 Logged 14:11 Hemoglobin A1c LAB 02/08/25 Logged 14:12 Glucose Blood [facility] 02/08/25 Logged (Accu-Chek Comfort 17:00 Insulin R (Human) PHA 02/08/25 Logged (Insulin R) 17:00 Dextrose 50% Syringe PHA 02/08/25 Logged 14:[address] 02/08/25 Verified 14:13 Date of Service: Feb 08, 2025 Billing Provider: ALLA EM Common Visit Codes: [id number] INP/OBS CARE (HIGH) ALLA EM Feb 08, 2025 14:20
[2025-02-08] MEDS ORDERED: MORPHINE SULFATE 4 MG/ML SYR/VIAL IV PRN (14:30)
[2025-02-08] MEDS: METOPROLOL TARTRATE 1MG/1ML-5ML VIAL IV ONE (14:33)
--- NOTE | 2025-02-08 14:45 | DVH ---
EXAM: CT HEAD WITHOUT CONTRAST HISTORY: aloc COMPARISON: None TECHNIQUE: Axial images of the head were obtained and reformatted in coronal and sagittal planes. All CT scans at this medical facility are performed using dose modulation techniques as appropriate t o a performed exam including the following: Automated exposure control was utilized; adjustment of th e MA and/or KV according to patient size; and use of iterative reconstruction technique. CT Dose: CTDI volume is 55.91 mGy. Dose-length product is 1102.1 mGy*cm FINDINGS: There is no evidence of acute intracranial hemorrhage, mass, mass effect midline shift. There is no h ydrocephalus or extra-axial fluid collection. Cruz-white matter differentiation is maintained. The visualized paranasal sinuses and mastoid air cells are clear. The calvarium is intact. IMPRESSION: 1. No acute intracranial process. HS:Y
[2025-02-08 14:52] LABS: Amphetamine Screen, Urine Neg (NEGATIVE); Barbiturate Scree,Urine Neg (NEGATIVE); Benzodiazephine Screen, Urine Neg (NEGATIVE); Cannabinoid Screen, Urine Neg (NEGATIVE); Cocaine Screen, Urine Neg (NEGATIVE); Opiate Scree,Urine Neg (NEGATIVE); Phencyclidine Screen, Urine Neg (NEGATIVE)
--- NOTE | 2025-02-08 14:56 | DVH ---
Indication: abd pain Technique: CT axial images of the abdomen and pelvis are obtained without contrast. Coronal and sagit steph reformats were obtained. Radiation Dose Information: CTDI volume is 27.88 mGy. Dose-length product is 1588.55 mGy*cm Comparison: None FINDINGS: There is limited interpretation of the abdomen and pelvis without administration of intravenous contr ast. Limited examination with the left aspect of the abdomen not completely visualized. Heart size at the upper limits of normal. Bibasilar atelectasis. Adrenal glands, spleen, pancreas unremarkable in shape. Liver unremarkable in shape. Kidneys demonstrate no hydronephrosis, nephrolithiasis. Stomach is partially distended. Small bowel loops normal in caliber. Colonic diverticular disease. Moderate volume stool in the colon. Normal appendix. Abdominal aortic atherosclerotic disease. Bladder decompressed by Carrillo catheter. No free pelvic flui d. No inguinal lymphadenopathy. [id number] thoracolumbar degenerative disc disease. IMPRESSION: Doubt contrast. Additionally, the examination is limited secondary to the patient's left anterior abdomen not being completely imaged on this examination secondary to habitus 1. Colonic diverticular disease. 2. Other findings as described.
[2025-02-08] MEDS: InsuLIN REG 1unit/0.01ml Soln (100units/ml) SC SCH (18:02)
[2025-02-08] MEDS: ACCU-CHEK COMFORT CURVE STRIP VI SCH (18:02)
[2025-02-08 18:28] LABS: Base Excess 3.5 mmol/L (-2.0-3.0)
[2025-02-08 18:30] VITALS: BP 105/82; PULSE 66
[2025-02-08 18:47] VITALS: O2SAT 99
[2025-02-08 19:30] VITALS: RESP 16; O2SAT 96
[2025-02-08 20:48] VITALS: BP 136/71; PULSE 61
[2025-02-08 20:52] VITALS: BP 136/71; PULSE 66; RESP 17; O2SAT 99
[2025-02-08] MEDS: DIVALPROEX SODIUM 250 MG PO SCH (22:00)
[2025-02-08] MEDS: levETIRAcetam 500 MG TAB PO SCH (23:08)
[2025-02-08] MEDS: ATORVASTATIN 20 MG TAB PO SCH (23:08)
[2025-02-09] VITALS (8 sets, daily range): BP systolic 111–144; BP diastolic 42–90; PULSE 61–77; RESP 18–20; TEMP 98; O2SAT 93–100
[2025-02-09] MEDS: HALOPERIDOL LACTATE 5 MG/ML INJ VIAL IM ONE (03:50)
[2025-02-09 05:32] LABS: Basophils # (auto) 0 10 ^3/uL (0-0.2); Basophils % (auto) 0.4 % (0.0-2.0); Eosinophils # (auto) 0.1 10 ^3/uL (0-0.8); Eosinophils % (auto) 1.4 % (0.0-7.0); Hematocrit 44.5 % (36.0-46.0); Hemoglobin 14.6 g/dL (12.2-16.2); Lymphocytes # (auto) 1.5 10 ^3/uL (0.4-5.4); Lymphocytes % (auto) 23.6 % (10.0-50.0); Mean Corpuscular Hemoglobin 30.9 pg (28.0-32.0); Mean Corpuscular Hgb Conc. 32.7 g/dL (32.0-36.0); Mean Corpuscular Volume 94.6 fL (80.0-100.0); Monocytes # (auto) 0.6 10 ^3/uL (0-1.3); Monocytes % (auto) 8.6 % (0.0-12.0); Neutrophils # (auto) 4.3 10 ^3/uL (1.6-8.6); Nucleated Red Blood Cells % 0.2 %; Platelet Count (auto) 165 10^3/uL (140-450); Red Blood Cells 4.71 10^6/uL (4.0-5.20); Red Cell Distribution Width 14.7 % (11.8-14.3); White Blood Cell 6.5 10^3/uL (4.4-10.8)
[2025-02-09 06:19] LABS: Alanine Aminotransferase 23 U/L (7-40); Alkaline Phosphatase 86 U/L (46-116); Anion Gap 6 (5-15); Aspartate Aminotransferase 19 U/L (13-40); BUN/Creatinine Ratio 12.6 (10.0-20.0); Blood Urea Nitrogen 11 mg/dL (9-23); Calcium 9.6 mg/dL (8.7-10.4); Chloride 106 mmol/L (98-107); Glucose 104 mg/dL (74-106); Potassium 3.6 mmol/L (3.5-5.1); Sodium 144 mmol/L (136-145); Total Protein 6.6 g/dL (5.7-8.2)
[2025-02-09 06:20] LABS: Bilirubin, Total 0.5 mg/dL (0.2-1.0); Carbon Dioxide 32 mmol/L (20-31)
[2025-02-09] MEDS: LEVOTHYROXINE SODIUM 100 MCG TAB PO SCH (07:00)
--- NOTE | 2025-02-09 10:02 | ECG ---
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
--- NOTE | 2025-02-09 14:31 | DVHPN2 ---
Changes from previous H/P or p: No Changes Gastrointestinal: Abdominal Pain Objective Vitals Vital Signs Date Time Temp Pulse Resp B/P (MAP) Pulse Ox O2 Delivery O2 Flow Rate FiO2 02/09/25 14:00 65 22 131/61 (84) 94 02/09/25 12:00 97.5 97.5 02/09/25 08:00 Non-Rebreather 15 N/A Medications Current Medications Medications Dose Ordered Sig/Jennie Route Start Time Stop Time Status Last Admin Dose Admin Atorvastatin Calcium 20 mg HS PO 02/08/25 22:00 02/08/25 23:08 20 MG Levetiracetam 500 mg BID PO 02/08/25 22:00 02/08/25 23:08 500 MG Patient Own Medication 250 mg Q12HR PO 02/08/25 22:00 Levothyroxine Sodium 200 mcg QAM PO 02/09/25 07:00 Ondansetron HCl 4 mg Q4HP PRN IV 02/08/25 14:15 Acetaminophen 650 mg Q6HP PRN PO 02/08/25 14:15 Nitroglycerin 0.4 mg Q5MINP PRN SL 02/08/25 14:15 Morphine Sulfate 2 mg Q30M PRN IV 02/08/25 14:30 Diagnostic Test (Pha) 1 strip ACHS 02/08/25 17:00 02/09/25 11:57 1 STRIP Insulin Human Regular ACHS SC 02/08/25 17:00 02/09/25 12:00 2 UNITS Dextrose 50 ml UD PRN IV 02/08/25 14:15 Patient Own Medication 100 mg DAILY PO 02/09/25 10:00 Laboratory Results Laboratory Tests 02/09/25 04:57 Chemistry Test 02/09/25 04:57 Albumin 4.0 g/dL (3.2-4.8) Calcium Level 9.6 mg/dL (8.7-10.4) Total Protein 6.6 g/dL (5.7-8.2) LFT Test 02/09/25 04:57 Alanine Aminotransferase (ALT) 23 U/L (7-40) Alkaline Phosphatase 86 U/L (46-116) Aspartate Amino Transferase (AST) 19 U/L (13-40) Total Bilirubin 0.5 mg/dL (0.2-1.0) Urinalysis Test 02/08/25 12:46 Urine Color Light-yellow (Yellow) Urine Clarity Clear (Clear) Urine pH 6.0 (5.0-9.0) Urine Specific [place] 1.016 (1.001-1.035) Urine Protein Negative (Negative) Urine Ketones Negative (Negative) Urine Blood Negative /uL (Negative) Urine Nitrite Negative (Negative) Urine Bilirubin Negative (Negative) Urine Urobilinogen Normal mg/dL (Negative) Urine Leukocyte Esterase Negative /uL (Negative) Urine RBC 1 /hpf (0 - 4) Urine Microscopic WBC 1 /HPF (0-5) Urine Squamous Epithelial Cells Few /hpf (<5) Urine Bacteria None seen /hpf (None Seen) Urine Glucose Normal mg/dL (Normal) Blood Gas Results Test 02/08/25 18:20 Arterial Blood pH 7.341 (7.350-7.450) FiO2 % 60.0 Labs and/or images reviewed: Labs reviewed by me, Image(s) reviewed by me Assessment/Plan Assessment/Plan Acute abdominal pain: CBC CMP within normal limits CT abdomen pelvis without contrast negative Hypothyroidism: Synthroid History of seizures Keppra Hypercholesterolemia: Lipitor Hypertension COPD Sleep apnea Acute on chronic congestive heart failure Patient is hospice revoked Time spent 70 minutes Advanced care planning time 20 minutes Patient is full code [facility] Plan discussed with: Patient Date of Service: Feb 09, 2025 Billing Provider: DAVID MCKINNEY MD Common Visit Codes: [id number] CARE 30-74 MIN DAVID MCKINNEY MD Feb 09, 2025 14:31
--- NOTE | 2025-02-09 15:44 | DVH ---
Bilateral lower extremity venous duplex Clinical History: R/O DVT Comparison: US BILAT LOWER DVT on DOS: 04/27/24 Findings: Duplex Doppler evaluation of the deep venous systems of both lower extremities from the common femora l veins to the popliteal veins including color Doppler and spectral/pulsed waveform analysis was perf ormed. RIGHT SIDE: Common femoral vein to superficial femoral vein not seen. The deep femoral vein demonstrates appropriate compressibility and waveform variability. The popliteal vein demonstrates appropriate compressibility and waveform variability. There is normal compressibility at the tibioperoneal trunk. LEFT SIDE: Common femoral vein to superficial femoral vein not seen. The deep femoral vein demonstrates appropriate compressibility and waveform variability. The popliteal vein demonstrates appropriate compressibility and waveform variability. There is normal compressibility at the tibioperoneal trunk. IMPRESSION: Of the visualized veins, No right or left femoropopliteal venous thrombosis. If clinical concern/symptoms persist or worsen, short-interval follow-up study is suggested. END IMPRESSION:
[2025-02-09] MEDS: SODIUM CHLORIDE 0.9% 1,000 ML IV SCH (16:24)
[2025-02-10] VITALS (11 sets, daily range): BP systolic 117–144; BP diastolic 57–86; PULSE 65–77; RESP 16–19; TEMP 96.6–98.7; O2SAT 95–98
--- NOTE | 2025-02-10 08:12 | DVHPN2 ---
Reviewed: Care Plan, H&P, Labs, Medications, Previous Orders, Radiology Changes from previous H/P or p: No Changes Gastrointestinal: Abdominal Pain Objective Vitals Vital Signs Date Time Temp Pulse Resp B/P (MAP) Pulse Ox O2 Delivery O2 Flow Rate FiO2 02/10/25 05:00 98.1 70 18 120/65 (83) 95 98.1 02/10/25 03:24 Facial BiPAP Mask 30 02/10/25 00:00 0 Intake/Output Intake and Output 02/10/25 07:00 Intake Total 200 ml Balance 200 ml Intake Oral 200 ml # Voids 1 Medications Current Medications Medications Dose Ordered Sig/Jennie Route Start Time Stop Time Status Last Admin Dose Admin Atorvastatin Calcium 20 mg HS PO 02/08/25 22:00 02/08/25 23:08 20 MG Levetiracetam 500 mg BID PO 02/08/25 22:00 02/08/25 23:08 500 MG Patient Own Medication 250 mg Q12HR PO 02/08/25 22:00 Levothyroxine Sodium 200 mcg QAM PO 02/09/25 07:00 Ondansetron HCl 4 mg Q4HP PRN IV 02/08/25 14:15 Acetaminophen 650 mg Q6HP PRN PO 02/08/25 14:15 Nitroglycerin 0.4 mg Q5MINP PRN SL 02/08/25 14:15 Morphine Sulfate 2 mg Q30M PRN IV 02/08/25 14:30 Diagnostic Test (Pha) 1 strip ACHS 02/08/25 17:00 02/10/25 06:32 1 STRIP Insulin Human Regular ACHS SC 02/08/25 17:00 02/09/25 12:00 2 UNITS Dextrose 50 ml UD PRN IV 02/08/25 14:15 Patient Own Medication 100 mg DAILY PO 02/09/25 10:00 Sodium Chloride 1,000 ml @ 125 mls/hr Q8H IV 02/09/25 16:15 02/10/25 02:52 125 MLS/HR Laboratory Results Laboratory Tests 02/09/25 04:57 Urinalysis Test 02/08/25 12:46 Urine Color Light-yellow (Yellow) Urine Clarity Clear (Clear) Urine pH 6.0 (5.0-9.0) Urine Specific [place] 1.016 (1.001-1.035) Urine Protein Negative (Negative) Urine Ketones Negative (Negative) Urine Blood Negative /uL (Negative) Urine Nitrite Negative (Negative) Urine Bilirubin Negative (Negative) Urine Urobilinogen Normal mg/dL (Negative) Urine Leukocyte Esterase Negative /uL (Negative) Urine RBC 1 /hpf (0 - 4) Urine Microscopic WBC 1 /HPF (0-5) Urine Squamous Epithelial Cells Few /hpf (<5) Urine Bacteria None seen /hpf (None Seen) Urine Glucose Normal mg/dL (Normal) Labs and/or images reviewed: Labs reviewed by me, Image(s) reviewed by me Assessment/Plan Assessment/Plan Acute abdominal pain: CBC CMP within normal limits CT abdomen pelvis without contrast negative Hypothyroidism: Synthroid History of seizures Keppra Hypercholesterolemia: Lipitor Hypertension COPD Acute on chronic congestive heart failure Patient is hospice revoked Obstructive sleep apnea on BiPAP Time spent 50 minutes Advanced care planning time 20 minutes Patient is full code [facility] Patient patient does not want to go back to [facility] Requesting rehab in a senior living facility Physical therapy ordered Plan discussed with: Patient My Orders Orders - DAVID MCKINNEY MD Procedure Category Date Status Time Bilat Lower Dvt US 02/09/25 Resulted 14:59 * Cardiology Consult CONS 02/09/25 Transmitted 15:48 Blood Culture STARLA 02/09/25 In Process 15:48 Urine Bacterial STARLA 02/09/25 Logged Culture 15:48 Sodium Chloride 0.9% PHA 02/09/25 In Process 16:15 Date of Service: Feb 10, 2025 Billing Provider: DAVID MCKINNEY MD Common Visit Codes: [id number] INP/OBS CARE(HIGH) DAVID MCKINNEY MD Feb 10, 2025 08:12
--- NOTE | 2025-02-10 11:12 | DVHINCON2 ---
Date Seen: Feb 10, 2025 Referring Physician MD Nicola Reason for Consultation Bradycardia episode History of Present Illness This is a 55-year-old female patient who presents to the emergency room with chief complaint of abdominal pain and headache that began on day of emergency room arrival. The patient states she comes from [facility]. Cardiology has been consulted at this time for bradycardia episode. Initial twelve lead electrocardiogram reviewed and revealed an atrial fibrillation/flutter rhythm with prolonged QTc interval. Patient denies any cardiac symptoms. Significant past medical history includes congestive heart failure, atrial fibrillation (off NOAC), hypertension, COPD with home O2 use, obstructive sleep apnea with CPAP use, type 2 diabetes mellitus, thyroid disease, schizophrenia, and morbid obesity. After reviewing automatic glove turner and former, only one event of bradycardia found in which heart rate reached as low as 59 beats per minute. There is a note from the emergency room RN that states that the patient became bradycardic while in the emergency room with her heart rate reaching as low as 30s and her oxygen saturation reaching as low as 60%. No twelve lead electrocardiogram or cardiac strips available to confirm this event. The patient denies following up with a rib matcher and fitter in the outpatient setting. The patient reports that she was on hospice care prior to emergency room but was revoked when she was admitted. Past Medical History Past medical history reviewed. No other significant than mentioned above. Past Surgical History Denies Family History: Patient reports no known family medical history. Family History Family history reviewed. Social History Denies the use of tobacco, alcohol or illicit drugs. Allergies: Coded Allergies: Codeine (Verified Allergy, Unknown, 04/24/24) Shellfish Allergy (Verified Allergy, Unknown, 04/25/24) Home Meds Active Scripts Benzonatate (Benzonatate) 200 Mg Cap, 1 CAP PO TID for 10 Days, #30 CAP 0 Refills Prov:RADHAHARDIKE STAND UP FORKLIFT OPERATOR 11/11/24 Albuterol Sulfate (Albuterol Sulfate Hfa) 108 Mcg/Act Aer, 108 MCG IN QID PRN for 14 Days, #1 AER 0 Refills Prov:BULL GARCIA STAND UP FORKLIFT OPERATOR 11/11/24 Amoxicillin & Pot Clavulanate (AUGMENTIN TABLET) 875 Mg Tb, 875 MG PO BID for 10 Days, #20 TAB 0 Refills Prov:RADHABULL STAND UP FORKLIFT OPERATOR 11/11/24 Reported Medications Risperidone (RisperDAL TABLET) 1 Mg Tb, 2 TAB PO QPM, #30 TAB 1 Refill 04/25/24 Atorvastatin Calcium (Lipitor) 20 Mg Tab, 1 TAB PO QHSP, #90 TAB 1 Refill 04/25/24 Divalproex Sodium (Divalproex Sodium Er) 500 Mg Tab, 250 MG PO Q12HR, TAB 04/25/24 Metformin Hydrochloride (Metformin Hcl) 1,000 Mg Tab, 1 TAB PO BID, #60 TAB 5 Refills 04/25/24 Omeprazole (Gnp Omeprazole) 20 Mg Tab, 40 MG PO DAILY, TAB 04/25/24 Sertraline Hcl (Sertraline Hcl) 50 Mg Tab, 1 TAB PO DAILY PRN for depression, #30 TAB 5 Refills 04/25/24 Modafinil (MODAFINIL) 100 Mg Tab, 100 MG PO DAILY, TAB 04/25/24 Levothyroxine Sodium (Levothyroxine Sodium) 200 Mcg Cap, 200 MCG PO DAILY, CAP 04/25/24 Hyoscyamine Sulfate (Levsin) 0.125 Mg Tab, 1 TAB PO Q6HP PRN for secretions, #90 TAB 1 Refill 04/25/24 Budesonide (Inhalation) (Budesonide) 0.5 Mg/2 Ml Lisset, 0.5 MG IN Q12HP PRN for SHORTNESS OF BREATH, ML 04/25/24 Clonazepam (Clonazepam) 1 Mg Tab, 1 MG PO Q4HP PRN for SEIZURES, TAB 04/25/24 Levetiracetam (KEPPRA TABLET) 500 Mg Tb, 500 MG PO BID, TAB 04/25/24 Docusate Sodium (Colace) 100 Mg Cap, 2 CAP PO BID PRN for FOR CONSTIPATION, #30 CAP 04/25/24 Magnesium Hydroxide (MILK OF MAGNESIA ORAL SUSPENSION) 30 Ml Ss, 30 ML PO, ML 04/25/24 Triamcinolone Acetonide (Triamcinolone Acetonide) 0.1 % Oin, 1 APPLIC TOP BID, #454 GRAMS 04/25/24 Home Meds Home medications reviewed. Current Medications Current Medications Medications (Trade) Dose Ordered Sig/Jennie Route PRN Reason Start Time Stop Time Status Last Admin Sodium Chloride 1,000 ml @ 125 mls/hr Q8H IV 02/09/25 16:15 02/10/25 02:52 Apixaban (Eliquis) 5 mg BID PO 02/10/25 10:00 Review of Systems Constitutional: No symptom reported Ears, Nose, & Throat: No symptom reported Eyes: No symptom reported Neurological: Headache Pulmonary/Respiratory: No symptoms reported Cardiovascular: No symptom reported Gastrointestinal: Abdominal pain Genitourinary: No symptom reported Musculoskeletal: No symptom reported Skin: No symptom reported Psychiatric: No symptom reported Endocrine: No symptom reported Hematologic/Lymphatic: No symptom reported Vital Signs Vital Signs Date Time Temp Pulse Resp B/P (MAP) Pulse Ox O2 Delivery O2 Flow Rate FiO2 02/10/25 09:00 96.6 68 18 117/61 (79) 97 96.6 02/10/25 03:24 Facial BiPAP Mask 30 02/10/25 00:00 0 Physical Exam General Appearance: Cooperative. Morbidly obese Pulmonary/Respiratory: Clear, bilateral breaths sounds. Cardiovascular/Chest: Irregularly irregular rate and rhythm. Peripheral Pulses: 2+ Radial (R). 2+ Radial (L). 1+ Pedal (R). 1+ Pedal (L) Abdominal Exam: Normal bowel sounds. Ankle Exam: Nonpitting edema Lower extremities: Nonpitting bilateral lower extremity edema Neuro/Mental Status: A/OX4, coherent. Thoughts/Psych: Normal thought pattern. Appropriate mood and affect. Good judgment and insight. Appearance: No acute distress. Skin Exam: Bilateral lower extremity discoloration, left leg more discolored than right Labs/Diagnostic Data Labs Test 02/10/25 06:27 02/09/25 04:57 02/08/25 18:20 02/08/25 14:11 Range/Units POC Glucose 93 70-106 mg/dl White Blood Count 6.5 # 4.4-10.8 10^3/uL Red Blood Count 4.71 4.0-5.20 10^6/uL Hemoglobin 14.6 12.2-16.2 g/dL Hematocrit 44.5 36.0-46.0 % Mean Corpuscular Volume 94.6 80.0-100.0 fL Mean Corpuscular Hemoglobin 30.9 28.0-32.0 pg Mean Corpuscular Hemoglobin Concent 32.7 32.0-36.0 g/dL Red Cell Distribution Width 14.7 H 11.8-14.3 % Platelet Count 165 140-450 10^3/uL Mean Platelet Volume 9.2 6.9-10.8 fL Neutrophils (%) (Auto) 66.0 37.0-80.0 % Lymphocytes (%) (Auto) 23.6 10.0-50.0 % Monocytes (%) (Auto) 8.6 0.0-12.0 % Eosinophils (%) (Auto) 1.4 0.0-7.0 % Basophils (%) (Auto) 0.4 0.0-2.0 % Neutrophils # (Auto) 4.3 1.6-8.6 10 ^3/uL Lymphocytes # (Auto) 1.5 0.4-5.4 10 ^3/uL Monocytes # (Auto) 0.6 0-1.3 10 ^3/uL Eosinophils # (Auto) 0.1 0-0.8 10 ^3/uL Basophils # (Auto) 0 0-0.2 10 ^3/uL Nucleated Red Blood Cells 0.2 % Sodium Level 144 136-145 mmol/L Potassium Level 3.6 3.5-5.1 mmol/L Chloride Level 106 98-107 mmol/L Carbon Dioxide Level 32 H 20-31 mmol/L Anion Gap 6 5-15 Blood Urea Nitrogen 11 9-23 mg/dL Creatinine 0.87 0.550-1.02 mg/dL Glomerular Filtration Rate Calc 79 >90 mL/min BUN/Creatinine Ratio 12.6 10.0-20.0 Serum Glucose 104 74-106 mg/dL Calcium Level 9.6 8.7-10.4 mg/dL Total Bilirubin 0.5 0.2-1.0 mg/dL Aspartate Amino Transferase (AST) 19 13-40 U/L Alanine Aminotransferase (ALT) 23 7-40 U/L Alkaline Phosphatase 86 46-116 U/L Total Protein 6.6 5.7-8.2 g/dL Albumin 4.0 3.2-4.8 g/dL Lipase 24 12-53 U/L Blood Gas Specimen Type Arterial Blood Gas Sample Site Right brachial Blood Gas Patient Temperature 37.0 Arterial Blood Date Drawn [id number] Arterial Blood pH 7.341 L 7.350-7.450 Arterial Blood Partial Pressure CO2 58.5 H 32.0-45.0 mmHg Arterial Blood Partial Pressure O2 108.3 H 83.0-108.0 mmHg Arterial Blood HCO3 30.9 H 21.0-28.0 mmol/L Arterial Blood Oxygen Saturation 97.9 94.0-98.0 % Arterial Blood Base Excess 3.5 H -2.0-3.0 mmol/L Arterial Blood Oxyhemoglobin 96.4 94.0-98.0 % Arterial Blood Carboxyhemoglobin 1.1 0.5-1.5 % Arterial Blood Methemoglobin 0.4 0.0-1.5 % Miguel Test N/a Blood Gas Total Hemoglobin 14.90 12.0-16.0 g/dL Blood Gas Liter Flow 11.00 Blood Gas Modality Mask - simple FiO2 % 60.0 Urine Opiates Screen Neg NEGATIVE Urine Fentanyl Screen Neg NEGATIVE Urine Barbiturates Screen Neg NEGATIVE Urine Phencyclidine Screen Neg NEGATIVE Urine Amphetamines Screen Neg NEGATIVE Urine Benzodiazepines Screen Neg NEGATIVE Urine Cocaine Screen Neg NEGATIVE Urine Cannabinoids Screen Neg NEGATIVE Test 02/08/25 12:46 02/08/25 10:23 Range/Units Urine Color Light-yellow Yellow Urine Clarity Clear Clear Urine pH 6.0 5.0-9.0 Urine Specific Morris 1.016 1.001-1.035 Urine Protein Negative Negative Urine Ketones Negative Negative Urine Blood Negative Negative /uL Urine Nitrite Negative Negative Urine Bilirubin Negative Negative Urine Urobilinogen Normal Negative mg/dL Urine Leukocyte Esterase Negative Negative /uL Urine RBC 1 0 - 4 /hpf Urine Microscopic WBC 1 0-5 /HPF Urine Squamous Epithelial Cells Few <5 /hpf Urine Bacteria None seen None Seen /hpf Urine Glucose Normal Normal mg/dL Hemoglobin A1c 6.3 H <5.7 % A1C Assessment Questionable bradycardic event Atrial fibrillation/flutter, likely persistent, [id number] (off NOAC therapy) Chronic HFpEF, NYHA class III Hypertension Prolonged QTc interval Rule out peripheral arterial disease COPD with home O2 use Obstructive sleep apnea with CPAP use Thyroid disease Type 2 diabetes mellitus Schizophrenia Morbidly obese Plan/Recommendation We will continue with the following plan/recommendations (Dr. Edwards): * Transthoracic echocardiogram to evaluate cardiac function * [id number] VASc score: 6 points, HAS-BLED score: 1 point * Initiate NOAC therapy with Eliquis * Patient rate currently controlled * Avoid antiarrhythmic agents, given unknown duration of atrial fibrillation/flutter * Monitor and replete electrolytes as needed, keep potassium greater than four and magnesium greater than two * Close Cardiac surveillance * Avoid AV josé miguel blocking agents * Avoid medications that prolong QT interval as this puts patient at risk for torsades de pointes * Check TSH level Patient seen and examined at bedside with . Thank you for allowing us to care for this patient. Please call with any questions or concerns. Critical care time spent: 44 minutes This medical document was created using an electronic medical record system with voice recognition software and computerized dictation system. Although this document has been carefully reviewed, there might still be some phonetic and typ ographical errors. Occasional wrong-word or ``sound-alike substitutions may have occurred due to the inherent limitations of voice recognition software. These areas are purely typographical due to imperfections of the software programs and do not reflect any compromise in the patient's medical care. Please read the chart carefully and recognize, using context, where these subs titutions have occurred. Plan discussed with: Patient NYHA Physical activity limitations: Class3(Marked) ordinary (activity causes symtoms) Date of Service: Feb 10, 2025 Billing Provider: LARISSA ORNELAS Cardiology Common Codes: 31723-IFMFSAY INP/OBS CARE (High) Cardiology Consultation Codes: 02143-[id number] CONSULT <45MIN LARISSA ORNELAS Feb 10, 2025 11:12
[2025-02-10] MEDS: APIXABAN 5 MG TAB PO SCH (11:18)
[2025-02-10 18:30] LABS: COVID19 ANTIGEN SOFIA FIA NEGATIVE (NEGATIVE); Rapid Influenza A Negative (Negative); Rapid Influenza B Negative (Negative)
--- NOTE | 2025-02-10 19:16 | DVH ---
BILATERAL Lower Extremity Arterial Duplex Date: 02/10/2025 02:56 PM Clinical History: r/o PAD Comparison: None Technique: Duplex Doppler evaluation including color Doppler and spectral/pulsed waveform analysis of the lower extremity arteries was performed. Finding: Velocities waveforms within normal limits. REFERENCE VALUES, [facility]) vascular Imaging Lab Criteria: Peak systolic velocity ranges (in cm/sec) are as follows: <150 cm/s - <20 % stenosis 150-200 cm/s - 20-49% stenosis 200-300 cm/s - 50-75% stenosis >300 cm/s -> 75% stenosis IMPRESSION: There is no evidence for peripheral vascular insufficiency in the right lower extremity. There is no evidence for peripheral vascular insufficiency in the left lower extremity. No significant focal stenosis is identified.
[2025-02-10] MEDS: ACETAMINOPHEN 325 MG TAB PO PRN (21:55)
[2025-02-11] VITALS (12 sets, daily range): BP systolic 127–129; BP diastolic 70–73; PULSE 58–77; RESP 16–20; TEMP 96.4–97.9; O2SAT 92–99
--- NOTE | 2025-02-11 00:06 | DVHINCON2 ---
Date Seen: Feb 10, 2025 Referring Physician MD Nicola Reason for Consultation Bradycardia episode History of Present Illness This is a 55-year-old female with a past medical history includes congestive heart failure, atrial fibrillation (off NOAC), hypertension, COPD with home O2 use, obstructive sleep apnea with CPAP use, type 2 diabetes mellitus, thyroid disease, schizophrenia, and morbid obesity who presents to the emergency room with a complaint of abdominal pain and headache that began on day of emergency room arrival. Patient states she comes from [facility]. Cardiology has been consulted at this time for bradycardia episode. Initial twelve lead electrocardiogram reviewed and revealed an atrial fibrillation/flutter rhythm with prolonged QTc interval. Patient denies any cardiac symptoms. After reviewing awake overnight monitor, only one event of bradycardia found in which heart rate reached as low as 59 beats per minute. There is a note from the emergency room RN that states that the patient became bradycardic while in the emergency room with her heart rate reaching as low as 30s and her oxygen saturation reaching as low as 60%. No twelve lead electrocardiogram or cardiac strips available to confirm this event. The patient denies following up with a international flight attendant in the outpatient setting. The patient reports that she was on hospice care prior to emergency room but was revoked when she was admitted.CT ABD PEL shows colonic diverticular disease. CT head showed no acute intracranial abnormality. BLE Venous Duplex is negative for DVT. Past Medical History Past medical history reviewed. No other significant than mentioned above. Past Surgical History Denies Family History: Patient reports no known family medical history. Allergies: Coded Allergies: Codeine (Verified Allergy, Unknown, 04/24/24) Shellfish Allergy (Verified Allergy, Unknown, 04/25/24) Home Meds Active Scripts Benzonatate (Benzonatate) 200 Mg Cap, 1 CAP PO TID for 10 Days, #30 CAP 0 Refills Prov:RADHABULL JET AIRCRAFT SERVICER 11/11/24 Albuterol Sulfate (Albuterol Sulfate Hfa) 108 Mcg/Act Aer, 108 MCG IN QID PRN for 14 Days, #1 AER 0 Refills Prov:CORDELLHARDIK BarraganE JET AIRCRAFT SERVICER 11/11/24 Amoxicillin & Pot Clavulanate (AUGMENTIN TABLET) 875 Mg Tb, 875 MG PO BID for 10 Days, #20 TAB 0 Refills Prov:RADHABULL JET AIRCRAFT SERVICER 11/11/24 Reported Medications Risperidone (RisperDAL TABLET) 1 Mg Tb, 2 TAB PO QPM, #30 TAB 1 Refill 04/25/24 Atorvastatin Calcium (Lipitor) 20 Mg Tab, 1 TAB PO QHSP, #90 TAB 1 Refill 04/25/24 Divalproex Sodium (Divalproex Sodium Er) 500 Mg Tab, 250 MG PO Q12HR, TAB 04/25/24 Metformin Hydrochloride (Metformin Hcl) 1,000 Mg Tab, 1 TAB PO BID, #60 TAB 5 Refills 04/25/24 Omeprazole (Gnp Omeprazole) 20 Mg Tab, 40 MG PO DAILY, TAB 04/25/24 Sertraline Hcl (Sertraline Hcl) 50 Mg Tab, 1 TAB PO DAILY PRN for depression, # 30 TAB 5 Refills 04/25/24 Modafinil (MODAFINIL) 100 Mg Tab, 100 MG PO DAILY, TAB 04/25/24 Levothyroxine Sodium (Levothyroxine Sodium) 200 Mcg Cap, 200 MCG PO DAILY, CAP 04/25/24 Hyoscyamine Sulfate (Levsin) 0.125 Mg Tab, 1 TAB PO Q6HP PRN for secretions, #90 TAB 1 Refill 04/25/24 Budesonide (Inhalation) (Budesonide) 0.5 Mg/2 Ml Lisset, 0.5 MG IN Q12HP PRN for SHORTNESS OF BREATH, ML 04/25/24 Clonazepam (Clonazepam) 1 Mg Tab, 1 MG PO Q4HP PRN for SEIZURES, TAB 04/25/24 Levetiracetam (KEPPRA TABLET) 500 Mg Tb, 500 MG PO BID, TAB 04/25/24 Docusate Sodium (Colace) 100 Mg Cap, 2 CAP PO BID PRN for FOR CONSTIPATION, #30 CAP 04/25/24 Magnesium Hydroxide (MILK OF MAGNESIA ORAL SUSPENSION) 30 Ml Ss, 30 ML PO, ML 04/25/24 Triamcinolone Acetonide (Triamcinolone Acetonide) 0.1 % Oin, 1 APPLIC TOP BID, #454 GRAMS 04/25/24 Current Medications Current Medications Medications (Trade) Dose Ordered Sig/Jennie Route PRN Reason Start Time Stop Time Status Last Admin Sodium Chloride 1,000 ml @ 125 mls/hr Q8H IV 02/09/25 16:15 02/10/25 02:52 Apixaban (Eliquis) 5 mg BID PO 02/10/25 10:00 02/10/25 11:18 Review of Systems Constitutional: No symptom reported Ears, Nose, & Throat: No symptom reported Eyes: No symptom reported Neurological: Headache Pulmonary/Respiratory: No symptoms reported Cardiovascular: No symptom reported Gastrointestinal: Abdominal pain Genitourinary: No symptom reported Musculoskeletal: No symptom reported Skin: No symptom reported Psychiatric: No symptom reported Endocrine: No symptom reported Hematologic/Lymphatic: No symptom reported Vital Signs Vital Signs Date Time Temp Pulse Resp B/P (MAP) Pulse Ox O2 Delivery O2 Flow Rate FiO2 02/10/25 13:00 97.6 69 18 132/77 (95) 97 97.6 02/10/25 08:00 Room Air* 0 21 Physical Exam GENERAL: Alert and oriented x 3. No acute distress. Morbidly obese. EYES: PERRL, EOMI. Anicteric. HENT: Moist mucous membranes. LUNGS: Clear to auscultation bilaterally. CARDIOVASCULAR: Irregular rate and rhythm. ABDOMEN: Soft, nontender and nondistended. EXTREMITIES: Non pitting edema. NEUROLOGIC: No focal neurological deficits. SKIN: Bilateral lower extremity discoloration, left leg more discolored than right. Labs/Diagnostic Data Labs Test 02/10/25 11:27 02/10/25 11:21 02/09/25 04:57 02/08/25 18:20 Range/Units Thyroid Stimulating Hormone (TSH) 5.96 H 0.55-4.78 uIU/mL POC Glucose 128 H 70-106 mg/dl White Blood Count 6.5 # 4.4-10.8 10^3/uL Red Blood Count 4.71 4.0-5.20 10^6/uL Hemoglobin 14.6 12.2-16.2 g/dL Hematocrit 44.5 36.0-46.0 % Mean Corpuscular Volume 94.6 80.0-100.0 fL Mean Corpuscular Hemoglobin 30.9 28.0-32.0 pg Mean Corpuscular Hemoglobin Concent 32.7 32.0-36.0 g/dL Red Cell Distribution Width 14.7 H 11.8-14.3 % Platelet Count 165 140-450 10^3/uL Mean Platelet Volume 9.2 6.9-10.8 fL Neutrophils (%) (Auto) 66.0 37.0-80.0 % Lymphocytes (%) (Auto) 23.6 10.0-50.0 % Monocytes (%) (Auto) 8.6 0.0-12.0 % Eosinophils (%) (Auto) 1.4 0.0-7.0 % Basophils (%) (Auto) 0.4 0.0-2.0 % Neutrophils # (Auto) 4.3 1.6-8.6 10 ^3/uL Lymphocytes # (Auto) 1.5 0.4-5.4 10 ^3/uL Monocytes # (Auto) 0.6 0-1.3 10 ^3/uL Eosinophils # (Auto) 0.1 0-0.8 10 ^3/uL Basophils # (Auto) 0 0-0.2 10 ^3/uL Nucleated Red Blood Cells 0.2 % Sodium Level 144 136-145 mmol/L Potassium Level 3.6 3.5-5.1 mmol/L Chloride Level 106 98-107 mmol/L Carbon Dioxide Level 32 H 20-31 mmol/L Anion Gap 6 5-15 Blood Urea Nitrogen 11 9-23 mg/dL Creatinine 0.87 0.550-1.02 mg/dL Glomerular Filtration Rate Calc 79 >90 mL/min BUN/Creatinine Ratio 12.6 10.0-20.0 Serum Glucose 104 74-106 mg/dL Calcium Level 9.6 8.7-10.4 mg/dL Total Bilirubin 0.5 0.2-1.0 mg/dL Aspartate Amino Transferase (AST) 19 13-40 U/L Alanine Aminotransferase (ALT) 23 7-40 U/L Alkaline Phosphatase 86 46-116 U/L Total Protein 6.6 5.7-8.2 g/dL Albumin 4.0 3.2-4.8 g/dL Lipase 24 12-53 U/L Blood Gas Specimen Type Arterial Blood Gas Sample Site Right brachial Blood Gas Patient Temperature 37.0 Arterial Blood Date Drawn [id number] Arterial Blood pH 7.341 L 7.350-7.450 Arterial Blood Partial Pressure CO2 58.5 H 32.0-45.0 mmHg Arterial Blood Partial Pressure O2 108.3 H 83.0-108.0 mmHg Arterial Blood HCO3 30.9 H 21.0-28.0 mmol/L Arterial Blood Oxygen Saturation 97.9 94.0-98.0 % Arterial Blood Base Excess 3.5 H -2.0-3.0 mmol/L Arterial Blood Oxyhemoglobin 96.4 94.0-98.0 % Arterial Blood Carboxyhemoglobin 1.1 0.5-1.5 % Arterial Blood Methemoglobin 0.4 0.0-1.5 % Miguel Test N/a Blood Gas Total Hemoglobin 14.90 12.0-16.0 g/dL Blood Gas Liter Flow 11.00 Blood Gas Modality Mask - simple FiO2 % 60.0 Test 02/08/25 14:11 02/08/25 12:46 02/08/25 10:23 Range/Units Urine Opiates Screen Neg NEGATIVE Urine Fentanyl Screen Neg NEGATIVE Urine Barbiturates Screen Neg NEGATIVE Urine Phencyclidine Screen Neg NEGATIVE Urine Amphetamines Screen Neg NEGATIVE Urine Benzodiazepines Screen Neg NEGATIVE Urine Cocaine Screen Neg NEGATIVE Urine Cannabinoids Screen Neg NEGATIVE Urine Color Light-yellow Yellow Urine Clarity Clear Clear Urine pH 6.0 5.0-9.0 Urine Specific Golf 1.016 1.001-1.035 Urine Protein Negative Negative Urine Ketones Negative Negative Urine Blood Negative Negative /uL Urine Nitrite Negative Negative Urine Bilirubin Negative Negative Urine Urobilinogen Normal Negative mg/dL Urine Leukocyte Esterase Negative Negative /uL Urine RBC 1 0 - 4 /hpf Urine Microscopic WBC 1 0-5 /HPF Urine Squamous Epithelial Cells Few <5 /hpf Urine Bacteria None seen None Seen /hpf Urine Glucose Normal Normal mg/dL Hemoglobin A1c 6.3 H <5.7 % A1C Assessment Questionable bradycardic event. Atrial fibrillation/flutter, likely persistent, [id number] (off NOAC therapy). Chronic HFpEF, NYHA class III. Hypertension. Prolonged QTc interval. Rule out peripheral arterial disease. COPD with home O2 use. Obstructive sleep apnea with CPAP use. Thyroid disease. Type 2 diabetes mellitus. Schizophrenia. Morbidly obese. Plan/Recommendation I agree with your ongoing assessment and care of plan. Patient has been seen by Emma Saldana NP on my behalf, her and I discussed the plan with the patient. Transthoracic echocardiogram to evaluate cardiac function. [id number] VASc score: 6 points, HAS-BLED score: 1 point. Initiate NOAC therapy with Eliquis. Patient rate currently controlled. Avoid antiarrhythmic agents, given unknown duration of atrial fibrillation/flutter. Monitor and replete electrolytes as needed, keep potassium greater than four and magnesium greater than two. Close Cardiac surveillance. Avoid AV josé miguel blocking agents. Avoid medications that prolong QT interval as this puts patient at risk for torsades de pointes. Check TSH level. Additional plan as per the hospital course. Plan discussed with: Patient NYHA Physical activity limitations: Class3(Marked) ordinary Date of Service: Feb 11, 2025 Billing Provider: IDRIS BRAVO MD Cardiology Common Codes: 78478-[id number] INP/OBS CARE (High) Cardiology Consultation Codes: 84121-[id number] CONSULT <45MIN IDRIS BRAVO MD Feb 10, 2025 14:18
--- NOTE | 2025-02-11 09:14 | DVHPN2 ---
Reviewed: Care Plan, H&P, Labs, Medications, Previous Orders, Radiology Changes from previous H/P or p: No Changes Gastrointestinal: Abdominal Pain Objective Vitals Vital Signs Date Time Temp Pulse Resp B/P (MAP) Pulse Ox O2 Delivery O2 Flow Rate FiO2 02/11/25 07:15 96 Nasal Cannula* 3 32 02/11/25 05:05 97.8 58 16 127/70 (89) 97.8 Intake/Output Intake and Output 02/11/25 07:00 Intake Total 2088 ml Balance 2088 ml Intake Oral 2088 ml # Voids 8 # Bowel Movements 4 Medications Current Medications Medications Dose Ordered Sig/Jennie Route Start Time Stop Time Status Last Admin Dose Admin Atorvastatin Calcium 20 mg HS PO 02/08/25 22:00 02/10/25 21:31 20 MG Levetiracetam 500 mg BID PO 02/08/25 22:00 02/10/25 21:31 500 MG Patient Own Medication 250 mg Q12HR PO 02/08/25 22:00 Levothyroxine Sodium 200 mcg QAM PO 02/09/25 07:00 02/11/25 06:07 200 MCG Ondansetron HCl 4 mg Q4HP PRN IV 02/08/25 14:15 Acetaminophen 650 mg Q6HP PRN PO 02/08/25 14:15 02/10/25 21:55 650 MG Nitroglycerin 0.4 mg Q5MINP PRN SL 02/08/25 14:15 Morphine Sulfate 2 mg Q30M PRN IV 02/08/25 14:30 Diagnostic Test (Pha) 1 strip ACHS 02/08/25 17:00 02/11/25 06:08 1 STRIP Insulin Human Regular ACHS SC 02/08/25 17:00 02/09/25 12:00 2 UNITS Dextrose 50 ml UD PRN IV 02/08/25 14:15 Patient Own Medication 100 mg DAILY PO 02/09/25 10:00 Sodium Chloride 1,000 ml @ 125 mls/hr Q8H IV 02/09/25 16:15 02/11/25 01:15 125 MLS/HR Apixaban 5 mg BID PO 02/10/25 10:00 02/10/25 21:31 5 MG Laboratory Results Laboratory Tests 02/09/25 04:57 HgA1c, TSH Test 02/10/25 11:27 Thyroid Stimulating Hormone (TSH) 5.96 uIU/mL (0.55-4.78) H Urinalysis Test 02/08/25 12:46 Urine Color Light-yellow (Yellow) Urine Clarity Clear (Clear) Urine pH 6.0 (5.0-9.0) Urine Specific [place] 1.016 (1.001-1.035) Urine Protein Negative (Negative) Urine Ketones Negative (Negative) Urine Blood Negative /uL (Negative) Urine Nitrite Negative (Negative) Urine Bilirubin Negative (Negative) Urine Urobilinogen Normal mg/dL (Negative) Urine Leukocyte Esterase Negative /uL (Negative) Urine RBC 1 /hpf (0 - 4) Urine Microscopic WBC 1 /HPF (0-5) Urine Squamous Epithelial Cells Few /hpf (<5) Urine Bacteria None seen /hpf (None Seen) Urine Glucose Normal mg/dL (Normal) Microbiology Microbiology Date/Time Source Procedure Growth Status 02/09/25 16:40 Blood Blood Culture - Preliminary NO GROWTH AFTER 24 HOURS OF INCUBATION. Resulted Labs and/or images reviewed: Labs reviewed by me, Image(s) reviewed by me Assessment/Plan Assessment/Plan Acute abdominal pain: CBC CMP within normal limits CT abdomen pelvis without contrast negative Hypothyroidism: Synthroid 200 mcg p.o. daily History of seizures Keppra Hypercholesterolemia: Lipitor Hypertension Type 2 diabetes on insulin sliding scale Prolonged QTc interval AFib on Eliquis COPD with the home O2 use Acute on chronic congestive heart failure: Cardiology consult by Dr. Edwards appreciated, echocardiogram pending Patient is hospice revoked Obstructive sleep apnea on BiPAP Morbid obesity Schizophrenia Time spent 65 minutes Plan discussed with: Patient Date of Service: Feb 11, 2025 Billing Provider: DAVID MCKINNEY MD Common Visit Codes: [id number] CARE 30-74 MIN DAVID MCKINNEY MD Feb 11, 2025 09:14
--- NOTE | 2025-02-11 13:20 | DVHSR ---
APPROVED REPORT EXAM: Two-dimensional and M-mode echocardiogram with Doppler and color Doppler. Blood Pressure: 127/70 mmHg INDICATION Atrial Fibrillation RISK FACTORS Obesity: Height: 5'6", Weight: 359 DIMENSIONS LVDd5.6 (3.8-5.7cm)LA (2D)3.9 (1.9-4.0cm)Aortic Root3.5 (2.0-3.7cm) LVDs3.8 (2.5-4.0cm)LA (MM) (1.9-4.0cm)Aortic Cusp Exc1.8 (1.5-2.0cm) EF (%) 60.0 (55-70%)Rt. Atrium4.2 (1.9-4.0cm)Asc. Aorta cm IVSd0.9 (0.7-1.1cm)RV (D) (1.8-2.4cm) PWd0.9 (0.7-1.1cm) Mitral Valve MitralMitral Stenosis E wave1.16m/sMV Mean GR.mmHg E/A ratio0.02D MVAcm2 Aortic Valve Aortic ValveAortic Stenosis V11.09m/Awilda Mean GR.6mmHg V21.53m/Awilda Peak GR.9mmHg LVOT Diameter2.0 (1.8-2.4cm)Doppler AVA2.24cm2 Pulmonic Valve V21.14m/s Tricuspid Valve TR Velocity3.58m/s [id number] Other Information Technically limited study due to body habitus. Conclusion LV EF IS 65% NORMAL VALVES SLIGHTLY DILATED RV MODERATELY SEVERE PULMONARY HYPERTENSION RVSP IS 59 MM OF HG AND IS VERY HIGH NO EFFUSION
--- NOTE | 2025-02-11 23:00 | DVHPN2 ---
Progress Note - Dictate Date Seen: Feb 11, 2025 Medical Necessity Reason Pt with a Central, PICC or Fol: No Subjective Patient was seen and evaluated in follow up. Patient is complaining of generalized pain. Patient is on 3 LPM NC. BS are in the low 100's. Telemetry reviewed. vital signs Vital Sign Date Time Temp Pulse Resp B/P (MAP) Pulse Ox O2 Delivery O2 Flow Rate FiO2 02/11/25 13:00 97.7 62 19 127/70 (89) 92 97.7 02/11/25 10:00 Nasal Cannula 02/11/25 10:00 3 32 Total Intake and Output 02/10/25 02/10/25 02/11/25 15:00 23:00 07:00 Intake Total 550 ml 688 ml 850 ml Balance 550 ml 688 ml 850 ml medications Current Medications Medications Dose Ordered Sig/Jennie Route Start Time Stop Time Status Last Admin Dose Admin Atorvastatin Calcium 20 mg HS PO 02/08/25 22:00 02/10/25 21:31 20 MG Levetiracetam 500 mg BID PO 02/08/25 22:00 02/11/25 10:57 500 MG Patient Own Medication 250 mg Q12HR PO 02/08/25 22:00 Levothyroxine Sodium 200 mcg QAM PO 02/09/25 07:00 02/11/25 06:07 200 MCG Ondansetron HCl 4 mg Q4HP PRN IV 02/08/25 14:15 Acetaminophen 650 mg Q6HP PRN PO 02/08/25 14:15 02/10/25 21:55 650 MG Nitroglycerin 0.4 mg Q5MINP PRN SL 02/08/25 14:15 Morphine Sulfate 2 mg Q30M PRN IV 02/08/25 14:30 Diagnostic Test (Pha) 1 strip ACHS 02/08/25 17:00 02/11/25 16:51 1 STRIP Insulin Human Regular ACHS SC 02/08/25 17:00 02/11/25 11:08 2 UNITS Dextrose 50 ml UD PRN IV 02/08/25 14:15 Patient Own Medication 100 mg DAILY PO 02/09/25 10:00 Sodium Chloride 1,000 ml @ 125 mls/hr Q8H IV 02/09/25 16:15 02/11/25 01:15 125 MLS/HR Apixaban 5 mg BID PO 02/10/25 10:00 02/11/25 10:57 5 MG objective GENERAL: Alert and oriented x 3. No acute distress. Morbidly obese. EYES: PERRL, EOMI. Anicteric. HENT: Moist mucous membranes. LUNGS: Clear to auscultation bilaterally. CARDIOVASCULAR: Irregular rate and rhythm. ABDOMEN: Soft, nontender and nondistended. EXTREMITIES: Non pitting edema. NEUROLOGIC: No focal neurological deficits. SKIN: Bilateral lower extremity discoloration, left leg more discolored than right. laboratory and microbiology Laboratory Tests 02/09/25 04:57 Test 02/09/25 04:57 Range/Units Serum Glucose 104 74-106 mg/dL Problem List Questionable bradycardic event. Atrial fibrillation/flutter, likely persistent, [id number] (off NOAC therapy). Chronic HFpEF, NYHA class III. Hypertension. Prolonged QTc interval. Rule out peripheral arterial disease. COPD with home O2 use. Obstructive sleep apnea with CPAP use. Thyroid disease. Type 2 diabetes mellitus. Schizophrenia. Morbidly obese. Assessment/Plan Continued all current supportive medical care. Eliquis. Lipitor. Morphine for pain management. Nitro SL. Additional plan as per the hospital course. Dietary Evaluation Review Recommendations by RD: Dietary education by RD Comments: 1) Add 60g CCHO restriction to cardiac diet 2) Encourage optimal PO intake 3) Refer to outpatient RD/CD[facility] for weight management 4) Follow-up with cardiology 5) Continue to monitor I&O, labs, and skin integrity Expected Outcomes/Goals: 1) appetite and labs to improve 2) f/u in 3-5 days Plan discussed with: Patient IDRIS BRAVO MD Feb 11, 2025 19:18
[2025-02-12] VITALS (10 sets, daily range): BP systolic 121–131; BP diastolic 63–73; PULSE 60–72; RESP 18–20; TEMP 96.4–98.1; O2SAT 93–99
--- NOTE | 2025-02-12 09:35 | DVHPN2 ---
Reviewed: Care Plan, H&P, Labs, Medications, Previous Orders, Radiology Changes from previous H/P or p: No Changes Gastrointestinal: Abdominal Pain Objective Vitals Vital Signs Date Time Temp Pulse Resp B/P (MAP) Pulse Ox O2 Delivery O2 Flow Rate FiO2 02/12/25 08:35 97.3 60 20 124/72 (89) 96 97.3 02/12/25 03:27 Facial BiPAP Mask 40 02/11/25 20:29 3.0 Intake/Output Intake and Output 02/12/25 07:00 Intake Total 967 ml Balance 967 ml Intake Oral 800 ml IV Total 167 ml # Voids 10 # Bowel Movements 2 Medications Current Medications Medications Dose Ordered Sig/Jennie Route Start Time Stop Time Status Last Admin Dose Admin Atorvastatin Calcium 20 mg HS PO 02/08/25 22:00 02/11/25 21:41 20 MG Levetiracetam 500 mg BID PO 02/08/25 22:00 02/11/25 21:41 500 MG Patient Own Medication 250 mg Q12HR PO 02/08/25 22:00 Levothyroxine Sodium 200 mcg QAM PO 02/09/25 07:00 02/12/25 06:41 200 MCG Ondansetron HCl 4 mg Q4HP PRN IV 02/08/25 14:15 Acetaminophen 650 mg Q6HP PRN PO 02/08/25 14:15 02/12/25 02:40 650 MG Nitroglycerin 0.4 mg Q5MINP PRN SL 02/08/25 14:15 Morphine Sulfate 2 mg Q30M PRN IV 02/08/25 14:30 Diagnostic Test (Pha) 1 strip ACHS 02/08/25 17:00 02/12/25 06:46 1 STRIP Insulin Human Regular ACHS SC 02/08/25 17:00 02/12/25 06:39 2 UNITS Dextrose 50 ml UD PRN IV 02/08/25 14:15 Patient Own Medication 100 mg DAILY PO 02/09/25 10:00 Sodium Chloride 1,000 ml @ 125 mls/hr Q8H IV 02/09/25 16:15 02/12/25 00:20 125 MLS/HR Apixaban 5 mg BID PO 02/10/25 10:00 02/11/25 21:41 5 MG Laboratory Results Laboratory Tests 02/09/25 04:57 Urinalysis Test 02/08/25 12:46 Urine Color Light-yellow (Yellow) Urine Clarity Clear (Clear) Urine pH 6.0 (5.0-9.0) Urine Specific [place] 1.016 (1.001-1.035) Urine Protein Negative (Negative) Urine Ketones Negative (Negative) Urine Blood Negative /uL (Negative) Urine Nitrite Negative (Negative) Urine Bilirubin Negative (Negative) Urine Urobilinogen Normal mg/dL (Negative) Urine Leukocyte Esterase Negative /uL (Negative) Urine RBC 1 /hpf (0 - 4) Urine Microscopic WBC 1 /HPF (0-5) Urine Squamous Epithelial Cells Few /hpf (<5) Urine Bacteria None seen /hpf (None Seen) Urine Glucose Normal mg/dL (Normal) Microbiology Microbiology Date/Time Source Procedure Growth Status 02/09/25 16:40 Blood Blood Culture - Preliminary NO GROWTH AFTER 48 HOURS OF INCUBATION. Resulted Labs and/or images reviewed: Labs reviewed by me, Image(s) reviewed by me Assessment/Plan Assessment/Plan Acute abdominal pain: CBC CMP within normal limits CT abdomen pelvis without contrast negative Hypothyroidism: Synthroid 200 mcg p.o. daily History of seizures Keppra, Depakote Hypercholesterolemia: Lipitor Hypertension Type 2 diabetes on insulin sliding scale Prolonged QTc interval AFib on Eliquis COPD with the home O2 use Acute on chronic congestive heart failure: Cardiology consult by Dr. dEwards appreciated, echocardiogram 55 % ejection fraction Patient is hospice revoked Obstructive sleep apnea on BiPAP Morbid obesity Schizophrenia: modafinil Time spent 55 minutes Patient will be discharged to custodial facility for cardiac rehab Plan discussed with: Patient My Orders Orders - DAVID MCKINNEY MD Procedure Category Date Status Time Notify Provider NOTICE 02/11/25 Transmitted Malnutrition 13:08 Dietary Education By NOURISH 02/11/[address] 13:08 Dietary NOTICE 02/11/25 Transmitted Recommendations 13:08 Mrsa Screen STARLA 02/12/25 In Process 00:41 * Advertising Dispatch Clerk CONS 02/12/25 Transmitted Consult Date of Service: Feb 12, 2025 Billing Provider: DAVID MCKINNEY MD Common Visit Codes: [id number] INP/OBS CARE(HIGH) DAVID MCKINNEY MD Feb 12, 2025 09:35
--- NOTE | 2025-02-12 12:15 | ECG ---
[facility] Test Date: 2025-02-09 Test Time: 15:40:05 Pat Name: JESSICA VU Department: ED Room: 0216T Gender: F Blackener: LENA : 1970 Requested By: ALLA EM Order Number: [id number] Reading MD: Abdi Antunez Measurements Intervals [place] Rate: 58 P: 0 [place]: 0 QRS: 105 QRSD: 119 T: 98 QT: 657 QTc: 646 Interpretive Statements Atrial fibrillation Incomplete right bundle branch block Low voltage, precordial leads Electronically Signed On 02-14-2025 20:36:20 PDT by Abdi Antunez Please click the below link to view image of tracing.
[2025-02-12 12:55] LABS: Alanine Aminotransferase 13 U/L (7-40); Albumin 3.7 g/dL (3.2-4.8); Alkaline Phosphatase 73 U/L (46-116); Anion Gap 9 (5-15); BUN/Creatinine Ratio 13.9 (10.0-20.0); Blood Urea Nitrogen 11 mg/dL (9-23); Calcium 9.2 mg/dL (8.7-10.4); Carbon Dioxide 28 mmol/L (20-31); Chloride 105 mmol/L (98-107); Potassium 4.3 mmol/L (3.5-5.1); Sodium 142 mmol/L (136-145); Total Protein 6.1 g/dL (5.7-8.2)
[2025-02-12 12:55] LABS: Base Excess 5.2 mmol/L (-2.0-3.0)
[2025-02-12 12:56] LABS: Bilirubin, Total 0.4 mg/dL (0.2-1.0)
[2025-02-12 13:00] LABS: Glucose 126 mg/dL (74-106)
[2025-02-12 13:14] LABS: Aspartate Aminotransferase 18 U/L (13-40)
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
--- NOTE | 2025-02-12 21:46 | DVHINCON2 ---
Date of service: Feb 12, 2025 Referring Physician Kael Petersen MD Reason for Consultation Acute hypoxic/chronic hypercarbic respiratory failure, COPD, pulmonary hypertension and OHS. History of Present Illness A 55-year-old woman with past medical history of COPD, hypertension, CHF, hypothyroidism and sleep apnea who presented to the ED on 02/08/25 with c/o generalized weakness, abdominal pain, and headache. Per reports, patient was found outside on her wheelchair at care facility complaining of abdominal pain and headache. Patient denied any chest pain, fever, chills, N/V/D or other acute complaints. Patient is reported to be compliant with her medications. She was admitted for further care, and pulmonary consultation is requested for evaluation and management of acute hypoxic/chronic hypercarbic respiratory failure, COPD, pulmonary hypertension and OHS. Review of Systems: 14-point review of systems negative unless otherwise noted above. Past Medical History: COPD, hypertension, CHF, hypothyroidism and sleep apnea Past Surgical History: Bilateral foot surgeries Medications: Reviewed. Allergies: Codeine and shellfish Family History: No family history of premature CAD. No family history of lung disorders. Social History: Nonsmoker. No alcohol or illicit drug use. Family History: Patient reports no known family medical history. Allergies: Coded Allergies: Codeine (Verified Allergy, Unknown, 04/24/24) Shellfish Allergy (Verified Allergy, Unknown, 04/25/24) Home Meds Active Scripts Benzonatate (Benzonatate) 200 Mg Cap, 1 CAP PO TID for 10 Days, #30 CAP 0 Refills Prov:[facility] 11/11/24 Albuterol Sulfate (Albuterol Sulfate Hfa) 108 Mcg/Act Aer, 108 MCG IN QID PRN for 14 Days, #1 AER 0 Refills Prov:[facility] 11/11/24 Amoxicillin & Pot Clavulanate (AUGMENTIN TABLET) 875 Mg Tb, 875 MG PO BID for 10 Days, #20 TAB 0 Refills Prov:[facility] 11/11/24 Reported Medications Risperidone (RisperDAL TABLET) 1 Mg Tb, 2 TAB PO QPM, #30 TAB 1 Refill 04/25/24 Atorvastatin Calcium (Lipitor) 20 Mg Tab, 1 TAB PO QHSP, #90 TAB 1 Refill 04/25/24 Divalproex Sodium (Divalproex Sodium Er) 500 Mg Tab, 250 MG PO Q12HR, TAB 04/25/24 Metformin Hydrochloride (Metformin Hcl) 1,000 Mg Tab, 1 TAB PO BID, #60 TAB 5 Refills 04/25/24 Omeprazole (Gnp Omeprazole) 20 Mg Tab, 40 MG PO DAILY, TAB 04/25/24 Sertraline Hcl (Sertraline Hcl) 50 Mg Tab, 1 TAB PO DAILY PRN for depression, #30 TAB 5 Refills 04/25/24 Modafinil (MODAFINIL) 100 Mg Tab, 100 MG PO DAILY, TAB 04/25/24 Levothyroxine Sodium (Levothyroxine Sodium) 200 Mcg Cap, 200 MCG PO DAILY, CAP 04/25/24 Hyoscyamine Sulfate (Levsin) 0.125 Mg Tab, 1 TAB PO Q6HP PRN for secretions, #90 TAB 1 Refill 04/25/24 Budesonide (Inhalation) (Budesonide) 0.5 Mg/2 Ml Lisset, 0.5 MG IN Q12HP PRN for SHORTNESS OF BREATH, ML 04/25/24 Clonazepam (Clonazepam) 1 Mg Tab, 1 MG PO Q4HP PRN for SEIZURES, TAB 04/25/24 Levetiracetam (KEPPRA TABLET) 500 Mg Tb, 500 MG PO BID, TAB 04/25/24 Docusate Sodium (Colace) 100 Mg Cap, 2 CAP PO BID PRN for FOR CONSTIPATION, #30 CAP 04/25/24 Magnesium Hydroxide (MILK OF MAGNESIA ORAL SUSPENSION) 30 Ml Ss, 30 ML PO, ML 04/25/24 Triamcinolone Acetonide (Triamcinolone Acetonide) 0.1 % Oin, 1 APPLIC TOP BID, #454 GRAMS 04/25/24 Current Medications Current Medications Medications (Trade) Dose Ordered Sig/Jennie Route PRN Reason Start Time Stop Time Status Last Admin Mupirocin (Bactroban 2% Ointment) 1 applic BID EACHNOSTRI 02/12/25 22:00 02/17/25 21:59 Vital Signs Vital Signs Date Time Temp Pulse Resp B/P (MAP) Pulse Ox O2 Delivery O2 Flow Rate FiO2 02/12/25 17:13 97.2 64 19 121/64 (83) 96 97.2 02/12/25 10:00 Nasal Cannula* 2 28 Physical Exam Gen.: Patient lying in bed in no apparent distress. On supplemental oxygen. Head: Normocephalic, atraumatic. Eyes: EOMI/PERRLA. Ears: Normal hearing. Normal anatomy. Neck/trachea: Trachea midline, supple. Nose: Normal external anatomy. Mouth: Moist mucous membranes. Chest: Decreased air entry bilaterally. No wheezing or rhonchi. Cardiovascular: Positive S1, positive S2. Regular rate and rhythm. Abdomen: Positive bowel sounds in all 4 quadrants. Soft, non-tender, non- distended. : Deferred. Rectal: Deferred. Skin: Warm, dry. Intact. Extremities: 2+ radial pulses bilaterally. No lower extremity edema. Neuro: Awake, alert, oriented x3. No gross motor or sensory deficits. Cranial nerves II through XII intact. Gait not assessed. Labs/Diagnostic Data Labs Test 02/12/25 17:37 02/12/25 12:46 02/12/25 10:00 02/10/25 17:05 Range/Units POC Glucose 121 H 70-106 mg/dl Blood Gas Specimen Type Arterial Blood Gas Sample Site Right radial Blood Gas Patient Temperature 37.0 Arterial Blood Date Drawn [id number] Arterial Blood pH 7.362 7.350-7.450 Arterial Blood Partial Pressure CO2 58.3 H 32.0-45.0 mmHg Arterial Blood Partial Pressure O2 75.1 L 83.0-108.0 mmHg Arterial Blood HCO3 32.3 H 21.0-28.0 mmol/L Arterial Blood Oxygen Saturation 94.0 94.0-98.0 % Arterial Blood Base Excess 5.2 H -2.0-3.0 mmol/L Arterial Blood Oxyhemoglobin 92.5 L 94.0-98.0 % Arterial Blood Carboxyhemoglobin 1.3 0.5-1.5 % Arterial Blood Methemoglobin 0.3 0.0-1.5 % Miguel Test Yes Blood Gas Total Hemoglobin 14.50 12.0-16.0 g/dL Blood Gas Liter Flow 3.00 Blood Gas Modality Nasal cannula FiO2 % 32.0 Sodium Level 142 136-145 mmol/L Potassium Level 4.3 3.5-5.1 mmol/L Chloride Level 105 98-107 mmol/L Carbon Dioxide Level 28 20-31 mmol/L Anion Gap 9 5-15 Blood Urea Nitrogen 11 9-23 mg/dL Creatinine 0.79 0.550-1.02 mg/dL Glomerular Filtration Rate Calc 88 >90 mL/min BUN/Creatinine Ratio 13.9 10.0-20.0 Serum Glucose 126 H 74-106 mg/dL Calcium Level 9.2 8.7-10.4 mg/dL Total Bilirubin 0.4 0.2-1.0 mg/dL Aspartate Amino Transferase (AST) 18 13-40 U/L Alanine Aminotransferase (ALT) 13 7-40 U/L Alkaline Phosphatase 73 46-116 U/L Total Protein 6.1 5.7-8.2 g/dL Albumin 3.7 3.2-4.8 g/dL Beta HCG, Quantitative 1.9 1.5-4.2 mIU/mL Influenza Type A Antigen Negative Negative Influenza Type B Antigen Negative Negative SARS-CoV-2 Antigen (Rapid) Negative NEGATIVE Test 02/10/25 11:27 02/09/25 04:57 02/08/25 14:11 02/08/25 12:46 Range/Units Thyroid Stimulating Hormone (TSH) 5.96 H 0.55-4.78 uIU/mL White Blood Count 6.5 # 4.4-10.8 10^3/uL Red Blood Count 4.71 4.0-5.20 10^6/uL Hemoglobin 14.6 12.2-16.2 g/dL Hematocrit 44.5 36.0-46.0 % Mean Corpuscular Volume 94.6 80.0-100.0 fL Mean Corpuscular Hemoglobin 30.9 28.0-32.0 pg Mean Corpuscular Hemoglobin Concent 32.7 32.0-36.0 g/dL Red Cell Distribution Width 14.7 H 11.8-14.3 % Platelet Count 165 140-450 10^3/uL Mean Platelet Volume 9.2 6.9-10.8 fL Neutrophils (%) (Auto) 66.0 37.0-80.0 % Lymphocytes (%) (Auto) 23.6 10.0-50.0 % Monocytes (%) (Auto) 8.6 0.0-12.0 % Eosinophils (%) (Auto) 1.4 0.0-7.0 % Basophils (%) (Auto) 0.4 0.0-2.0 % Neutrophils # (Auto) 4.3 1.6-8.6 10 ^3/uL Lymphocytes # (Auto) 1.5 0.4-5.4 10 ^3/uL Monocytes # (Auto) 0.6 0-1.3 10 ^3/uL Eosinophils # (Auto) 0.1 0-0.8 10 ^3/uL Basophils # (Auto) 0 0-0.2 10 ^3/uL Nucleated Red Blood Cells 0.2 % Lipase 24 12-53 U/L Urine Opiates Screen Neg NEGATIVE Urine Fentanyl Screen Neg NEGATIVE Urine Barbiturates Screen Neg NEGATIVE Urine Phencyclidine Screen Neg NEGATIVE Urine Amphetamines Screen Neg NEGATIVE Urine Benzodiazepines Screen Neg NEGATIVE Urine Cocaine Screen Neg NEGATIVE Urine Cannabinoids Screen Neg NEGATIVE Urine Color Light-yellow Yellow Urine Clarity Clear Clear Urine pH 6.0 5.0-9.0 Urine Specific [place] 1.016 1.001-1.035 Urine Protein Negative Negative Urine Ketones Negative Negative Urine Blood Negative Negative /uL Urine Nitrite Negative Negative Urine Bilirubin Negative Negative Urine Urobilinogen Normal Negative mg/dL Urine Leukocyte Esterase Negative Negative /uL Urine RBC 1 0 - 4 /hpf Urine Microscopic WBC 1 0-5 /HPF Urine Squamous Epithelial Cells Few <5 /hpf Urine Bacteria None seen None Seen /hpf Urine Glucose Normal Normal mg/dL Test 02/08/25 10:23 Range/Units Hemoglobin A1c 6.3 H <5.7 % A1C Microbiology Date/Time Source Procedure Growth Status 02/12/25 00:34 Nose MRSA Screen - Final Methicillin Resistant S.aureus Complete 02/09/25 16:40 Blood Blood Culture - Preliminary NO GROWTH AFTER 72 HOURS OF INCUBATION. Resulted Assessment Impression: Acute hypoxic respiratory failure Chronic hypercarbic respiratory failure Dependence on supplemental oxygen Chronic obstructive pulmonary disease Atelectasis Congestive heart failure Super morbid obesity, BMI 59.2 Obstructive sleep apnea Obesity hypoventilation syndrome Pulmonary hypertension, RVSP 59 mmHg Plan: Supplemental oxygen 2 LPM NC Titrate to keep O2 sats between 88-94%. Taper O2 as tolerated. Head of bed elevation Aspiration precautions Bronchodilators for COPD. Incentive spirometry d/t atelectasis Antiepileptic - Keppra Eliquis BID BiPAP at night for WOLFGANG - patient refusing BiPAP Monitor renal function. Monitor electrolytes. Supplement as necessary. Monitor ins and outs. DVT prophylaxis. Diet and lifestyle modifications for weight reduction Super morbid obesity - complicates all care Prognosis: Poor given patient's multiple co-morbidities. Rest of plan per hospitalist and other consultants. Thank you, Dr. Petersen, for allowing me to participate in this patient's care. Further recommendations will depend on the patient's clinical course. Please do not hesitate to contact me if you have any questions or concerns. This medical document was created using an electronic medical record system with [employer] dictation system. Although these documentations are being carefully reviewed, there may still be some phonetic and typographical changes. The errors are purely typographical, due to imperfection on the software program, and do not reflect any compromise in the patient's medical care. Plan discussed with: Other (BALDEV Melendrez/Dr. Petersen) KATHLEEN BRADSHAW MD Feb 12, 2025 21:46
[2025-02-12] MEDS: MUPIROCIN 2% OINT 15gm or 22gm FOR MRSA NARES EACHNOSTRI SCH (22:00)
[2025-02-13] VITALS (13 sets, daily range): BP systolic 122–175; BP diastolic 71–93; PULSE 58–80; RESP 17–24; TEMP 97.1–97.9; O2SAT 91–100
--- NOTE | 2025-02-13 00:18 | DVHPN2 ---
Progress Note - Dictate Date Seen: Feb 12, 2025 Medical Necessity Reason Pt with a Central, PICC or Fol: No Subjective Patient was seen and evaluated in follow up. Patient is on 2 LPM NC. BS in the 120s. MRSA is positive, started on Bactroban. Prelim blood cultures are negative. Telemetry reviewed. vital signs Vital Sign Date Time Temp Pulse Resp B/P (MAP) Pulse Ox O2 Delivery O2 Flow Rate FiO2 02/12/25 17:13 97.2 64 19 121/64 (83) 96 97.2 02/12/25 10:00 Nasal Cannula* 2 28 Total Intake and Output 02/12/25 02/12/25 02/13/25 15:00 23:00 07:00 Intake Total 740 ml Output Total 600 ml Balance 140 ml medications Current Medications Medications Dose Ordered Sig/Jennie Route Start Time Stop Time Status Last Admin Dose Admin Atorvastatin Calcium 20 mg HS PO 02/08/25 22:00 02/12/25 22:48 20 MG Levetiracetam 500 mg BID PO 02/08/25 22:00 02/12/25 22:47 500 MG Patient Own Medication 250 mg Q12HR PO 02/08/25 22:00 Levothyroxine Sodium 200 mcg QAM PO 02/09/25 07:00 02/12/25 06:41 200 MCG Ondansetron HCl 4 mg Q4HP PRN IV 02/08/25 14:15 Acetaminophen 650 mg Q6HP PRN PO 02/08/25 14:15 02/12/25 02:40 650 MG Nitroglycerin 0.4 mg Q5MINP PRN SL 02/08/25 14:15 Morphine Sulfate 2 mg Q30M PRN IV 02/08/25 14:30 Diagnostic Test (Pha) 1 strip ACHS 02/08/25 17:00 02/12/25 22:48 1 STRIP Insulin Human Regular ACHS SC 02/08/25 17:00 02/12/25 06:39 2 UNITS Dextrose 50 ml UD PRN IV 02/08/25 14:15 Patient Own Medication 100 mg DAILY PO 02/09/25 10:00 Sodium Chloride 1,000 ml @ 125 mls/hr Q8H IV 02/09/25 16:15 02/12/25 00:20 125 MLS/HR Apixaban 5 mg BID PO 02/10/25 10:00 6/9/25 22:47 5 MG Mupirocin 1 applic BID EACHNOSTRI 02/12/25 22:00 02/17/25 21:59 objective GENERAL: Alert and oriented x 3. No acute distress. Morbidly obese. EYES: PERRL, EOMI. Anicteric. HENT: Moist mucous membranes. LUNGS: Clear to auscultation bilaterally. CARDIOVASCULAR: Irregular rate and rhythm. ABDOMEN: Soft, nontender and nondistended. EXTREMITIES: Non pitting edema. NEUROLOGIC: No focal neurological deficits. SKIN: Bilateral lower extremity discoloration, left leg more discolored than right. laboratory and microbiology Laboratory Tests 02/12/25 10:00 02/09/25 04:57 Test 02/12/25 10:00 Range/Units Serum Glucose 126 H 74-106 mg/dL Problem List Questionable bradycardic event. Atrial fibrillation/flutter, likely persistent, [id number] (off NOAC therapy). Chronic HFpEF, NYHA class III. Hypertension. Prolonged QTc interval. Rule out peripheral arterial disease. COPD with home O2 use. Obstructive sleep apnea with CPAP use. Thyroid disease. Type 2 diabetes mellitus. Schizophrenia. Morbidly obese. Assessment/Plan Continued all current supportive medical care. Eliquis. Lipitor. Morphine for pain management. Nitro SL. Additional plan as per the hospital course. Dietary Evaluation Review Recommendations by RD: Dietary education by RD Comments: 1) Add 60g CCHO restriction to cardiac diet 2) Encourage optimal PO intake 3) Refer to outpatient RD/CDCES for weight management 4) Follow-up with cardiology 5) Continue to monitor I&O, labs, and skin integrity Expected Outcomes/Goals: 1) appetite and labs to improve 2) f/u in 3-5 days Plan discussed with: Patient IDRIS BRAVO MD Feb 13, 2025 00:18
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
[2025-02-13] MEDS: GEODON 20 MG PO SCH (09:49)
--- NOTE | 2025-02-13 15:02 | DVHPN2 ---
Progress Note - Dictate Date Seen: Feb 13, 2025 Medical Necessity Reason Pt with a Central, PICC or Fol: No vital signs Vital Sign Date Time Temp Pulse Resp B/P (MAP) Pulse Ox O2 Delivery O2 Flow Rate FiO2 02/13/25 13:15 97.5 68 18 131/81 (98) 95 97.5 02/13/25 10:00 Nasal Cannula 2.0 02/13/25 10:00 28 Total Intake and Output 02/12/25 02/12/25 02/13/25 15:00 23:00 07:00 Intake Total 740 ml 400 ml Output Total 600 ml 200 ml Balance 140 ml 200 ml medications Current Medications Medications Dose Ordered Sig/Jennie Route Start Time Stop Time Status Last Admin Dose Admin Atorvastatin Calcium 20 mg HS PO 02/08/25 22:00 02/12/25 22:48 20 MG Levetiracetam 500 mg BID PO 02/08/25 22:00 02/13/25 09:49 500 MG Patient Own Medication 250 mg Q12HR PO 02/08/25 22:00 Levothyroxine Sodium 200 mcg QAM PO 02/09/25 07:00 02/13/25 06:27 200 MCG Ondansetron HCl 4 mg Q4HP PRN IV 02/08/25 14:15 Acetaminophen 650 mg Q6HP PRN PO 02/08/25 14:15 02/12/25 02:40 650 MG Nitroglycerin 0.4 mg Q5MINP PRN SL 02/08/25 14:15 Morphine Sulfate 2 mg Q30M PRN IV 02/08/25 14:30 Diagnostic Test (Pha) 1 strip ACHS 02/08/25 17:00 02/13/25 11:52 1 STRIP Insulin Human Regular ACHS SC 02/08/25 17:00 02/12/25 06:39 2 UNITS Dextrose 50 ml UD PRN IV 02/08/25 14:15 Patient Own Medication 100 mg DAILY PO 02/09/25 10:00 Sodium Chloride 1,000 ml @ 125 mls/hr Q8H IV 02/09/25 16:15 02/12/25 00:20 125 MLS/HR Apixaban 5 mg BID PO 02/10/25 10:00 02/13/25 09:49 5 MG Mupirocin 1 applic BID EACHNOSTRI 02/12/25 22:00 6/14/25 21:59 02/13/25 09:49 1 APPLIC laboratory and microbiology Laboratory Tests 02/12/25 10:00 02/09/25 04:57 Test 02/12/25 10:00 Range/Units Serum Glucose 126 H 74-106 mg/dL Assessment/Plan Impression Acute hypoxemic respiratory failure Acute COPD exacerbation Morbid obesity Atelectasis WOLFGANG Patient seen and examined Events Low oxygen requirements On 2 liters nasal cannula No acute events Labs and imaging reviewed Management Supplemental oxygen Titrate to maintain sats 90% or above Incentive spirometry CPAP for WOLFGANG Antibiotics Bronchodilators Monitor renal function Monitor electrolytes Supplement as needed Awaiting placement DVT prophylaxis Dietary Evaluation Review Recommendations by RD: Dietary education by RD Comments: 1) Add 60g CCHO restriction to cardiac diet 2) Encourage optimal PO intake 3) Refer to outpatient RD/CDCES for weight management 4) Follow-up with cardiology 5) Continue to monitor I&O, labs, and skin integrity Expected Outcomes/Goals: 1) appetite and labs to improve 2) f/u in 3-5 days Plan discussed with: Patient JOSÉ MIGUEL SMITH MD Feb 13, 2025 15:02
--- NOTE | 2025-02-13 22:56 | DVHPN2 ---
Progress Note - Dictate Date Seen: Feb 13, 2025 Medical Necessity Reason Pt with a Central, PICC or Fol: No Subjective Patient was seen and evaluated in follow up. No overnight events. Patient is on 2 LPM NC. Patient is resting in bed. Telemetry reviewed. vital signs Vital Sign Date Time Temp Pulse Resp B/P (MAP) Pulse Ox O2 Delivery O2 Flow Rate FiO2 02/13/25 21:10 58 131/75 97 Facial BiPAP Mask 40 02/13/25 21:00 97.1 17 97.1 02/13/25 10:00 2.0 Total Intake and Output 02/12/25 02/12/25 02/13/25 15:00 23:00 07:00 Intake Total 740 ml 400 ml Output Total 600 ml 200 ml Balance 140 ml 200 ml medications Current Medications Medications Dose Ordered Sig/Jennie Route Start Time Stop Time Status Last Admin Dose Admin Atorvastatin Calcium 20 mg HS PO 02/08/25 22:00 02/12/25 22:48 20 MG Levetiracetam 500 mg BID PO 02/08/25 22:00 02/13/25 09:49 500 MG Patient Own Medication 250 mg Q12HR PO 02/08/25 22:00 Levothyroxine Sodium 200 mcg QAM PO 02/09/25 07:00 02/13/25 06:27 200 MCG Ondansetron HCl 4 mg Q4HP PRN IV 02/08/25 14:15 Acetaminophen 650 mg Q6HP PRN PO 02/08/25 14:15 02/12/25 02:40 650 MG Nitroglycerin 0.4 mg Q5MINP PRN SL 02/08/25 14:15 Morphine Sulfate 2 mg Q30M PRN IV 02/08/25 14:30 Diagnostic Test (Pha) 1 strip ACHS 02/08/25 17:00 02/13/25 17:00 1 STRIP Insulin Human Regular ACHS SC 02/08/25 17:00 02/12/25 06:39 2 UNITS Dextrose 50 ml UD PRN IV 02/08/25 14:15 Patient Own Medication 100 mg DAILY PO 02/09/25 10:00 Sodium Chloride 1,000 ml @ 125 mls/hr Q8H IV 02/09/25 16:15 02/13/25 17:00 125 MLS/HR Apixaban 5 mg BID PO 02/10/25 10:00 02/13/25 09:49 5 MG Mupirocin 1 applic BID EACHNOSTRI 02/12/25 22:00 02/17/25 21:59 02/13/25 09:49 1 APPLIC objective GENERAL: Alert and oriented x 3. No acute distress. Morbidly obese. EYES: PERRL, EOMI. Anicteric. HENT: Moist mucous membranes. LUNGS: Clear to auscultation bilaterally. CARDIOVASCULAR: Irregular rate and rhythm. ABDOMEN: Soft, nontender and nondistended. EXTREMITIES: Non pitting edema. NEUROLOGIC: No focal neurological deficits. SKIN: Bilateral lower extremity discoloration, left leg more discolored than right. laboratory and microbiology Laboratory Tests 02/12/25 10:00 02/09/25 04:57 Test 02/12/25 10:00 Range/Units Serum Glucose 126 H 74-106 mg/dL Problem List Questionable bradycardic event. Atrial fibrillation/flutter, likely persistent, [id number] (off NOAC therapy). Chronic HFpEF, NYHA class III. Hypertension. Prolonged QTc interval. Rule out peripheral arterial disease. COPD with home O2 use. Obstructive sleep apnea with CPAP use. Thyroid disease. Type 2 diabetes mellitus. Schizophrenia. Morbidly obese. Assessment/Plan Continued all current supportive medical care. Eliquis. Lipitor. Morphine for pain management. Nitro SL. Additional plan as per the hospital course. Dietary Evaluation Review Recommendations by RD: Dietary education by RD Comments: 1) Add 60g CCHO restriction to cardiac diet 2) Encourage optimal PO intake 3) Refer to outpatient RD/CDCES for weight management 4) Follow-up with cardiology 5) Continue to monitor I&O, labs, and skin integrity Expected Outcomes/Goals: 1) appetite and labs to improve 2) f/u in 3-5 days Plan discussed with: Patient IDRIS BRAVO MD Feb 13, 2025 22:56
[2025-02-14] VITALS (9 sets, daily range): BP systolic 100–149; BP diastolic 56–85; PULSE 61–80; RESP 19–22; TEMP 96.8–97.8; O2SAT 92–98
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
--- NOTE | 2025-02-14 13:28 | DVHPN2 ---
Progress Note Date Seen: Feb 14, 2025 Resident Creating Document: DEWAYNE BAE RESIDENT Medical Necessity Reason Pt with a Central, PICC or Fol: No Subjective Review of Systems Patient is seen today at bedside. Patient denied any respiratory distress. Labs and chart reviewed. Patient is cleared for discharge. Objective vital signs Vital Sign Date Time Temp Pulse Resp B/P (MAP) Pulse Ox O2 Delivery O2 Flow Rate FiO2 02/14/25 09:55 94 Nasal Cannula* 4 36 02/14/25 08:55 97.3 68 19 119/56 (77) 97.3 Total Intake and Output 02/13/25 02/13/25 02/14/25 14:59 22:59 06:59 Intake Total 520 ml 2124 ml 240 ml Output Total 1300 ml Balance 520 ml 824 ml 240 ml medications Current Medications Medications Dose Ordered Sig/Jennie Route Start Time Stop Time Status Last Admin Dose Admin Atorvastatin Calcium 20 mg HS PO 02/08/25 22:00 02/13/25 23:08 20 MG Levetiracetam 500 mg BID PO 02/08/25 22:00 02/13/25 09:49 500 MG Patient Own Medication 250 mg Q12HR PO 02/08/25 22:00 Levothyroxine Sodium 200 mcg QAM PO 02/09/25 07:00 02/14/25 06:58 200 MCG Ondansetron HCl 4 mg Q4HP PRN IV 02/08/25 14:15 Acetaminophen 650 mg Q6HP PRN PO 02/08/25 14:15 02/14/25 06:58 650 MG Nitroglycerin 0.4 mg Q5MINP PRN SL 02/08/25 14:15 Morphine Sulfate 2 mg Q30M PRN IV 02/08/25 14:30 Diagnostic Test (Pha) 1 strip ACHS 02/08/25 17:00 02/14/25 12:24 1 STRIP Insulin Human Regular ACHS SC 02/08/25 17:00 02/12/25 06:39 2 UNITS Dextrose 50 ml UD PRN IV 02/08/25 14:15 Patient Own Medication 100 mg DAILY PO 02/09/25 10:00 Sodium Chloride 1,000 ml @ 125 mls/hr Q8H IV 02/09/25 16:15 02/14/25 11:47 125 MLS/HR Apixaban 5 mg BID PO 02/10/25 10:00 02/14/25 11:38 5 MG Mupirocin 1 applic BID EACHNOSTRI 02/12/25 22:00 02/17/25 21:59 02/14/25 11:40 1 APPLIC laboratory and microbiology Laboratory Tests 02/12/25 10:00 02/09/25 04:57 Test 02/12/25 10:00 Range/Units Serum Glucose 126 H 74-106 mg/dL Microbiology Date/Time Source Procedure Growth Status 02/12/25 00:34 Nose MRSA Screen - Final Methicillin Resistant S.aureus Complete 02/09/25 16:40 Blood Blood Culture - Preliminary NO GROWTH AFTER 72 HOURS OF INCUBATION. Resulted Problem List/Assessment/Plan Problem List/Assessment/Plan Assessment/Plan Impression Acute hypoxemic respiratory failure Acute COPD exacerbation Morbid obesity Atelectasis WOLFGANG Patient seen and examined Events Patient denied any acute complaint Low oxygen requirements On 2 liters nasal cannula No acute events Patient is okay to be discharge Labs and imaging reviewed Management Supplemental oxygen Titrate to maintain sats 90% or above Incentive spirometry CPAP for WOLFGANG Antibiotics Bronchodilators Monitor renal function Monitor electrolytes Supplement as needed Awaiting placement DVT prophylaxis Plan discussed with Dr. Wolfe , nursing staff, Total time spent on patient evaluation, chart review, assessment and plan, discussion discussion >35 minutes Plan discussed with: Patient, Other (RN) Dietary Evaluation Review Recommendations by RD: Dietary education by RD Comments: 1) Add 60g CCHO restriction to cardiac diet 2) Encourage optimal PO intake 3) Refer to outpatient RD/CDCES for weight management 4) Follow-up with cardiology 5) Continue to monitor I&O, labs, and skin integrity Expected Outcomes/Goals: 1) appetite and labs to improve 2) f/u in 3-5 days DEWAYNE BAE RESIDENT Feb 14, 2025 13:28
--- NOTE | 2025-02-14 15:21 | DVHPN2 ---
Progress Note - Dictate Date Seen: Feb 14, 2025 Medical Necessity Reason Pt with a Central, PICC or Fol: No Subjective Patient was seen and evaluated in follow up. Patient is on 4 LPM NC. Patient reports feeling better well. Patient is pending discharge to [facility]. Telemetry reviewed. vital signs Vital Sign Date Time Temp Pulse Resp B/P (MAP) Pulse Ox O2 Delivery O2 Flow Rate FiO2 02/14/25 09:55 94 Nasal Cannula* 4 36 02/14/25 08:55 97.3 68 19 119/56 (77) 97.3 Total Intake and Output 02/13/25 02/13/25 02/14/25 15:00 23:00 07:00 Intake Total 520 ml 2124 ml 240 ml Output Total 1300 ml Balance 520 ml 824 ml 240 ml medications Current Medications Medications Dose Ordered Sig/Jennie Route Start Time Stop Time Status Last Admin Dose Admin Atorvastatin Calcium 20 mg HS PO 02/08/25 22:00 02/13/25 23:08 20 MG Levetiracetam 500 mg BID PO 02/08/25 22:00 02/13/25 09:49 500 MG Patient Own Medication 250 mg Q12HR PO 02/08/25 22:00 Levothyroxine Sodium 200 mcg QAM PO 02/09/25 07:00 02/14/25 06:58 200 MCG Ondansetron HCl 4 mg Q4HP PRN IV 02/08/25 14:15 Acetaminophen 650 mg Q6HP PRN PO 02/08/25 14:15 02/14/25 06:58 650 MG Nitroglycerin 0.4 mg Q5MINP PRN SL 02/08/25 14:15 Morphine Sulfate 2 mg Q30M PRN IV 02/08/25 14:30 Diagnostic Test (Pha) 1 strip ACHS 02/08/25 17:00 02/14/25 12:24 1 STRIP Insulin Human Regular ACHS SC 02/08/25 17:00 02/12/25 06:39 2 UNITS Dextrose 50 ml UD PRN IV 02/08/25 14:15 Patient Own Medication 100 mg DAILY PO 02/09/25 10:00 Sodium Chloride 1,000 ml @ 125 mls/hr Q8H IV 02/09/25 16:15 02/14/25 11:47 125 MLS/HR Apixaban 5 mg BID PO 02/10/25 10:00 02/14/25 11:38 5 MG Mupirocin 1 applic BID EACHNOSTRI 02/12/25 22:00 02/17/25 21:59 02/14/25 11:40 1 APPLIC objective GENERAL: Alert and oriented x 3. No acute distress. Morbidly obese. EYES: PERRL, EOMI. Anicteric. HENT: Moist mucous membranes. LUNGS: Clear to auscultation bilaterally. CARDIOVASCULAR: Irregular rate and rhythm. ABDOMEN: Soft, nontender and nondistended. EXTREMITIES: Non pitting edema. NEUROLOGIC: No focal neurological deficits. SKIN: Bilateral lower extremity discoloration, left leg more discolored than right. laboratory and microbiology Laboratory Tests 02/12/25 10:00 02/09/25 04:57 Test 02/12/25 10:00 Range/Units Serum Glucose 126 H 74-106 mg/dL Problem List Questionable bradycardic event. Atrial fibrillation/flutter, likely persistent, [id number] (off NOAC therapy). Chronic HFpEF, NYHA class III. Hypertension. Prolonged QTc interval. Rule out peripheral arterial disease. COPD with home O2 use. Obstructive sleep apnea with CPAP use. Thyroid disease. Type 2 diabetes mellitus. Schizophrenia. Morbidly obese. Assessment/Plan Continued all current supportive medical care. Eliquis. Lipitor. Morphine for pain management. Nitro SL. Additional plan as per the hospital course. Dietary Evaluation Review Recommendations by RD: Dietary education by RD Comments: 1) Add 60g CCHO restriction to cardiac diet 2) Encourage optimal PO intake 3) Refer to outpatient RD/CDCES for weight management 4) Follow-up with cardiology 5) Continue to monitor I&O, labs, and skin integrity Expected Outcomes/Goals: 1) appetite and labs to improve 2) f/u in 3-5 days Plan discussed with: Patient IDRIS BRAVO MD Feb 14, 2025 13:16
== END 2025-02-14 14:00 | DRG 189 ==
LOC: EDBD 09:40 → EDUNIT# 09:40 → ER 09:40 → OVERFLOW 14:11 → TELE-CENTR 02-09 23:50
PROVIDERS: ADMIT Family Medicine; ATTEND Family Medicine
PROC: 5A09357 Assistance with Respiratory Ventilation, Less than 24 Consecutive Hours, Continuous Positive Airway Pressure (ICD-10-PCS; principal; 2025-02-08)
PROC: 5A09357 Assistance with Respiratory Ventilation, Less than 24 Consecutive Hours, Continuous Positive Airway Pressure (ICD-10-PCS; 2025-02-09)
PROC: 5A09357 Assistance with Respiratory Ventilation, Less than 24 Consecutive Hours, Continuous Positive Airway Pressure (ICD-10-PCS; 2025-02-10)
PROC: 5A09357 Assistance with Respiratory Ventilation, Less than 24 Consecutive Hours, Continuous Positive Airway Pressure (ICD-10-PCS; 2025-02-11)
PROC: 5A09357 Assistance with Respiratory Ventilation, Less than 24 Consecutive Hours, Continuous Positive Airway Pressure (ICD-10-PCS; 2025-02-13)
DX: J96.21 Acute and chronic respiratory failure with hypoxia (principal); J44.1 Chronic obstructive pulmonary disease with (acute) exacerbation; I48.92 Unspecified atrial flutter; J98.11 Atelectasis; Z68.43 Body mass index [BMI] 50.0-59.9, adult; I50.32 Chronic diastolic (congestive) heart failure; E66.2 Morbid (severe) obesity with alveolar hypoventilation; F20.0 Paranoid schizophrenia; J96.22 Acute and chronic respiratory failure with hypercapnia; K57.30 Diverticulosis of large intestine without perforation or abscess without bleeding; I11.0 Hypertensive heart disease with heart failure; E78.00 Pure hypercholesterolemia, unspecified; E03.9 Hypothyroidism, unspecified; M51.34 Other intervertebral disc degeneration, thoracic region; I48.91 Unspecified atrial fibrillation; I27.20 Pulmonary hypertension, unspecified; K29.70 Gastritis, unspecified, without bleeding; Z91.013 Allergy to seafood; Z88.5 Allergy status to narcotic agent; Z79.2 Long term (current) use of antibiotics; Z79.899 Other long term (current) drug therapy; Z79.84 Long term (current) use of oral hypoglycemic drugs; Z99.81 Dependence on supplemental oxygen; Z79.4 Long term (current) use of insulin
CPT/HCPCS: 36415; 36600; 70450; 74176; 80048; 80053; 80307; 81001; 82805; 82962; 83036; 83690; 84443; 84702; 85025; 87040; 87081; 87426; 87804; 93005; 93306; 93925; 93970; 94660; 97110; 97163; 97530; G0378; J1815